=== PATIENT | female | born 1965 | race Two or more races ===

== ENCOUNTER 2024-09-17 10:51 | Outpatient (RCR) | payer MEDICAID, SELFPAY ==
[2024-08-26 16:40] LABS: Basophils % (Auto) 1 % (0-2.5); Eosinophils # (Auto) 0.1 Thou/mm3 (0.0-0.5); Eosinophils % (Auto) 2 % (0-10); Hematocrit 40.2 % (36.0-46.0); Hemoglobin 13.9 g/dL (12.0-16.0); Immature Granulocytes % (Auto) 0 % (0-0); Lymphocytes # (Auto) 0.8 Thou/mm3 (1.0-4.8); Lymphocytes % (Auto) 22 % (10-50); Mean Corpuscular HGB Conc 34.6 g/dl (31.0-37.0); Mean Corpuscular Hemoglobin 35.9 pg (25.0-35.0); Mean Corpuscular Volume 104 fL (80-100); Monocytes # (Auto) 0.5 Thou/mm3 (0.0-0.8); Monocytes % (Auto) 13 % (0-12); Neutrophils # (Auto) 2.3 Thou/mm3 (1.8-7.7); Neutrophils % (Auto) 62 % (37-80); Nucleated Red Blood Cell % 0 /100 WBC (0); RDW Standard Deviation 54.3 fL (36.4-46.3); Red Blood Count 3.87 Miln/mm3 (4.00-5.20); White Blood Count 3.7 Thou/mm3 (3.6-11.0)
[2024-08-26 16:46] LABS: Platelet Count 69 Thou/mm3 (140-440)
[2024-08-26 17:37] LABS: Slide Review Platelets confirmed
[2024-08-26 17:41] LABS: Alanine Aminotransferase 15 U/L (10-49); Albumin, Serum 3.9 gm/dL (3.5-5.0); Alkaline Phosphatase 221 U/L (46-116); Anion Gap 9 (7-16); Aspartate Amino Transferase 54 U/L (0-34); BUN/Creatinine Ratio 18 Ratio (12-20); Bilirubin,Total 1.6 mg/dL (0.3-1.2); Blood Urea Nitrogen 9 mg/dL (9-23); Calcium 9.1 mg/dL (8.3-10.6); Calcium (Corrected) 9.2 mg/dL (8.5-10.1); Carbon Dioxide 24.9 mMol/L (20.0-31.0); Chloride 104 mMol/L (98-107); Creatinine (Component) 0.5 mg/dL (0.6-1.3); Glucose 111 mg/dL (74-106); Osmolality,Calculated 275 (275-295); Potassium 3.9 mMol/L (3.4-5.1); Sodium 138 mMol/L (136-145); Total Protein 7.9 gm/dL (5.7-8.2); eGFR > 60 See Note
[2024-08-26 17:52] LABS: CA 15-3 14.1 U/mL (<32.4); Carcinoembryonic Antigen 3.7 ng/mL (0.0-5.0)
[2024-09-16 16:16] LABS: Basophils % (Auto) 1 % (0-2.5); Eosinophils # (Auto) 0.1 Thou/mm3 (0.0-0.5); Eosinophils % (Auto) 2 % (0-10); Hematocrit 35.6 % (36.0-46.0); Hemoglobin 12.6 g/dL (12.0-16.0); Immature Granulocytes % (Auto) 0 % (0-0); Immature Granulocytes Auto 0.01 Thou/mm3 (0.00-0.00); Lymphocytes # (Auto) 0.7 Thou/mm3 (1.0-4.8); Lymphocytes % (Auto) 24 % (10-50); Mean Corpuscular HGB Conc 35.4 g/dl (31.0-37.0); Mean Corpuscular Hemoglobin 36.6 pg (25.0-35.0); Mean Corpuscular Volume 104 fL (80-100); Monocytes # (Auto) 0.5 Thou/mm3 (0.0-0.8); Monocytes % (Auto) 16 % (0-12); Neutrophils # (Auto) 1.8 Thou/mm3 (1.8-7.7); Neutrophils % (Auto) 57 % (37-80); Nucleated Red Blood Cell % 0 /100 WBC (0); RDW Standard Deviation 55.9 fL (36.4-46.3); Red Blood Count 3.44 Miln/mm3 (4.00-5.20); White Blood Count 3.1 Thou/mm3 (3.6-11.0)
[2024-09-16 16:28] LABS: Platelet Count 72 Thou/mm3 (140-440)
[2024-09-16 16:40] LABS: Carbon Dioxide 25.2 mMol/L (20.0-31.0); Chloride 105 mMol/L (98-107); Potassium 3.6 mMol/L (3.4-5.1); Sodium 138 mMol/L (136-145)
[2024-09-16 16:41] LABS: Alanine Aminotransferase 15 U/L (10-49); Albumin, Serum 3.7 gm/dL (3.5-5.0); Alkaline Phosphatase 204 U/L (46-116); Anion Gap 8 (7-16); Aspartate Amino Transferase 44 U/L (0-34); BUN/Creatinine Ratio 15 Ratio (12-20); Bilirubin,Total 1.4 mg/dL (0.3-1.2); Blood Urea Nitrogen 9 mg/dL (9-23); Calcium 9.7 mg/dL (8.3-10.6); Calcium (Corrected) 9.9 mg/dL (8.5-10.1); Creatinine (Component) 0.6 mg/dL (0.6-1.3); Globulin 3.7 gm/dL (2.3-3.5); Glucose 100 mg/dL (74-106); Osmolality,Calculated 274 (275-295); Total Protein 7.4 gm/dL (5.7-8.2); eGFR > 60 See Note
[2024-09-16 16:58] LABS: Slide Review Platelets confirmed
[2024-09-16 17:14] LABS: CA 15-3 12.5 U/mL (<32.4); Carcinoembryonic Antigen 3.6 ng/mL (0.0-5.0)
[2024-09-17 12:00] LABS: Immature Reticulocyte Fraction 17.2 % (3.0-15.9); Reticulocyte % (Auto) 3.2 % (0.5-1.5); Reticulocyte Hgb Content 40.6 pg (28.0-35.0)
[2024-09-17 12:10] LABS: LDH (Lactate Dehydrogenase) 339 U/L (120-246)
[2024-09-17 12:17] LABS: Folate 16.61 ng/mL (>5.38); Vitamin B12 917 pg/mL (211-911)
[2024-09-25 07:09] LABS: Haptoglobin* <10 mg/dL (43-212)
== END 2024-09-21 23:59 | disposition home or self-care (01) ==
LOC: SCTC 10:51
PROVIDERS: PCP Family Medicine; Referring Provider Family Medicine; Visit Provider Internal Medicine Hematology & Oncology
DX: Z51.11 Encounter for antineoplastic chemotherapy (principal); Z51.0 Encounter for antineoplastic radiation therapy; C50.411 Malignant neoplasm of upper-outer quadrant of right female breast; Z17.0 Estrogen receptor positive status [ER+]; Z17.22 Progesterone receptor negative status; Z17.32 Human epidermal growth factor receptor 2 negative status; C78.02 Secondary malignant neoplasm of left lung; C79.51 Secondary malignant neoplasm of bone; G89.3 Neoplasm related pain (acute) (chronic)
CPT/HCPCS: 36591; 77280; 77295; 77300; 77334; 77336; 77412; 77417; 80053; 82378; 82607; 82746; 83010; 83615; 85025; 85046; 86300; 86880; 96367; 96413; A4216; J1642; J2405; J7060; J9358

== ENCOUNTER → 2024-09-28 | Outpatient (CLI) | payer MEDICAID, SELFPAY ==
--- NOTE | 2024-09-28 08:00 | XR_ITS ---
Examination: MRI cervical spine with intravenous contrast Technique: Multiple axial sagittal MR cervical spine images post intravenous contrast, 11 cc gadolinium Exam date and time: September 28, 2024 at 0841 hrs. Indications: Neck pain generalized numbness and paresthesias in the left arm and hand 3 weeks, breast carcinoma diagnosis 2011, nuclear medicine bone scan August 09, 2024 consistent with progression of osseous metastatic disease Findings: Adequate alignment cervical vertebral bodies Abnormal enhancement 20 mm in the left C7 vertebral body axial image 7 and the central T1 vertebral body sagittal image 9 No abnormal epidural tumor impinging upon the cervical cord No localized enlargement cervical cord Impression: Findings suspicious for osseous metastatic disease C7 and T1 No epidural tumor enhancement impinging upon the cervical cord
--- NOTE | 2024-09-28 08:30 | XR_ITS ---
Examination: MRI shoulder with intravenous contrast Technique: Multiple axial sagittal coronal MRI shoulder images post intravenous administration 11 cc gadolinium Exam date and time: September 28, 2024 0851 hrs. Indications: Diagnosis malignant neoplasm upper outer quadrant right female breast, secondary malignant neoplasm bone, secondary malignant neoplasm left lung, nuclear medicine bone scan August 09, 2024 marked increased isotope accumulation right shoulder, patient states left arm pain paresthesias 3 weeks Findings: Abnormal enhancement left humeral neck, 11 mm Rotator cuff appears intact No shoulder dislocation No pathologic fracture Impression: 11 mm focus of osseous metastatic disease left humeral neck
== END | disposition home or self-care (01) ==
LOC: SMRI 07:36
PROVIDERS: PCP Advanced Practice Midwife; Referring Provider Radiology Therapeutic Radiology; Visit Provider Radiology Therapeutic Radiology
DX: C79.51 Secondary malignant neoplasm of bone (principal); C50.411 Malignant neoplasm of upper-outer quadrant of right female breast; C78.02 Secondary malignant neoplasm of left lung
CPT/HCPCS: 72142; 73222; A9579

== ENCOUNTER → 2024-09-30 | Outpatient (CLI) | payer MEDICAID, SELFPAY ==
--- NOTE | 2024-09-30 10:11 | XR_ITS ---
Examination:Right hip AP, lateral, AP pelvis 3 views Technique: Hip AP lateral, AP pelvis, 3 views Exam date and time:September 30, 2024 1038 hours INDICATIONS: Diagnosis breast carcinoma, positive ventricular medicine bone scan right hip examination August 09, 2024 FINDINGS: Osteoblastic metastases involving right femoral neck intertrochanteric region of proximal shaft of the femur No pathologic fracture IMPRESSION: Osteoblastic metastatic disease right femur.
--- NOTE | 2024-09-30 10:11 | XR_ITS ---
Examination: Right femur 2 views TECHNIQUE: AP lateral right femur 2 views Exam date and time: September 30, 2024 1049 hours INDICATIONS: Diagnosis malignant neoplasm upper outer right female breast, abnormal uptake right hip under medicine bone scan August 09, 2024 FINDINGS: Osteoblastic metastases involving the right femoral neck intertrochanteric region of proximal and distal right femoral shaft No pathologic fracture IMPRESSION: Osteoblastic metastatic disease as above
== END | disposition home or self-care (01) ==
PROVIDERS: PCP Family Medicine; Referring Provider Internal Medicine Hematology & Oncology; Visit Provider Internal Medicine Hematology & Oncology
DX: C79.51 Secondary malignant neoplasm of bone (principal); C50.411 Malignant neoplasm of upper-outer quadrant of right female breast; C78.02 Secondary malignant neoplasm of left lung
CPT/HCPCS: 73502; 73552

== ENCOUNTER 2024-10-22 09:44 | Outpatient (RCR) | payer MEDICAID, SELFPAY ==
[2024-10-07 09:42] LABS: Basophils % (Auto) 1 % (0-2.5); Eosinophils # (Auto) 0.1 Thou/mm3 (0.0-0.5); Eosinophils % (Auto) 2 % (0-10); Hematocrit 36.7 % (36.0-46.0); Hemoglobin 12.6 g/dL (12.0-16.0); Immature Granulocytes % (Auto) 0 % (0-0); Lymphocytes # (Auto) 0.6 Thou/mm3 (1.0-4.8); Lymphocytes % (Auto) 21 % (10-50); Mean Corpuscular HGB Conc 34.3 g/dl (31.0-37.0); Mean Corpuscular Hemoglobin 37.1 pg (25.0-35.0); Mean Corpuscular Volume 108 fL (80-100); Monocytes # (Auto) 0.5 Thou/mm3 (0.0-0.8); Monocytes % (Auto) 18 % (0-12); Neutrophils # (Auto) 1.7 Thou/mm3 (1.8-7.7); Neutrophils % (Auto) 58 % (37-80); Nucleated Red Blood Cell % 0 /100 WBC (0); RDW Standard Deviation 65.4 fL (36.4-46.3)
[2024-10-07 09:59] LABS: White Blood Count 2.9 Thou/mm3 (3.6-11.0)
[2024-10-07 10:00] LABS: Platelet Count 79 Thou/mm3 (140-440)
[2024-10-07 10:06] LABS: Alanine Aminotransferase 15 U/L (10-49); Albumin, Serum 3.7 gm/dL (3.5-5.0); Alkaline Phosphatase 218 U/L (46-116); Anion Gap 10 (7-16); Aspartate Amino Transferase 52 U/L (0-34); BUN/Creatinine Ratio 20 Ratio (12-20); Bilirubin,Total 1.4 mg/dL (0.3-1.2); Blood Urea Nitrogen 10 mg/dL (9-23); Calcium (Corrected) 10.2 mg/dL (8.5-10.1); Carbon Dioxide 26.3 mMol/L (20.0-31.0); Chloride 105 mMol/L (98-107); Creatinine (Component) 0.5 mg/dL (0.6-1.3); Globulin 3.8 gm/dL (2.3-3.5); Glucose 117 mg/dL (74-106); Osmolality,Calculated 281 (275-295); Potassium 3.9 mMol/L (3.4-5.1); Sodium 141 mMol/L (136-145); Total Protein 7.5 gm/dL (5.7-8.2); eGFR > 60 See Note
[2024-10-07 11:37] LABS: CA 15-3 17.3 U/mL (<32.4); Carcinoembryonic Antigen 4.2 ng/mL (0.0-5.0)
[2024-10-07 11:41] LABS: Slide Review Platelets confirmed
== END 2024-10-22 23:59 | disposition home or self-care (01) ==
LOC: SCTC 09:44
PROVIDERS: Internal Medicine Hematology & Oncology; PCP Family Medicine; Referring Provider Family Medicine; Visit Provider Radiology Therapeutic Radiology
DX: Z51.11 Encounter for antineoplastic chemotherapy (principal); Z51.0 Encounter for antineoplastic radiation therapy; C50.411 Malignant neoplasm of upper-outer quadrant of right female breast; C79.51 Secondary malignant neoplasm of bone; C78.02 Secondary malignant neoplasm of left lung; Z17.0 Estrogen receptor positive status [ER+]; Z17.22 Progesterone receptor negative status; Z17.32 Human epidermal growth factor receptor 2 negative status; Z86.011 Personal history of benign neoplasm of the brain
CPT/HCPCS: 36591; 77014; 77280; 77290; 77295; 77300; 77334; 77336; 77412; 77417; 77470; 80053; 82378; 85025; 86300; 96360; 96361; 96367; 96372; 96413; 99212; 99213; A4216; J0897; J1642; J2405; J7030; J7060; J9358; G0463

== ENCOUNTER → 2024-10-25 | Outpatient (CLI) | payer MEDICAID, SELFPAY ==
--- NOTE | 2024-10-25 09:00 | XR_ITS ---
Examination: MRI brain with intravenous contrast TECHNIQUE: Multiple axial sagittal coronal brain MRI images post intravenous administration 11 cc gadolinium INDICATIONS: Diagnosis malignant neoplasm upper outer quadrant right female breast, secondary malignant neoplasm bone secondary malignant neoplasm left lung, staging Examination time: October 25, 2024 0919 hours Comparison 06/26/2015 FINDINGS: Ventricles are normal in size and configuration No mass effect upon the ventricular system Focal encephalomalacia left frontal lobe axial image 21 No enlargement pituitary Left frontal craniotomy Axial image 21 demonstrates 3 mm focus enhancement in the right frontal parietal lobe IMPRESSION: Recommend this patient return for triple dose gadolinium study to confirm 3 mm abnormal focus of enhancement in the right frontal parietal lobe
== END | disposition home or self-care (01) ==
LOC: SMRI 08:51
PROVIDERS: PCP Advanced Practice Midwife; Referring Provider Internal Medicine Hematology & Oncology; Visit Provider Internal Medicine Hematology & Oncology
DX: C50.411 Malignant neoplasm of upper-outer quadrant of right female breast (principal); C79.51 Secondary malignant neoplasm of bone; C78.02 Secondary malignant neoplasm of left lung
CPT/HCPCS: 70552; A9579

== ENCOUNTER 2024-11-18 14:23 | Outpatient (RCR) | payer MEDICAID, SELFPAY ==
[2024-10-28 12:11] LABS: Basophils % (Auto) 1 % (0-2.5); Eosinophils # (Auto) 0.1 Thou/mm3 (0.0-0.5); Eosinophils % (Auto) 3 % (0-10); Hematocrit 35.1 % (36.0-46.0); Hemoglobin 12.3 g/dL (12.0-16.0); Immature Granulocytes % (Auto) 0 % (0-0); Immature Granulocytes Auto 0.01 Thou/mm3 (0.00-0.00); Lymphocytes # (Auto) 0.6 Thou/mm3 (1.0-4.8); Lymphocytes % (Auto) 19 % (10-50); Mean Corpuscular Hemoglobin 37.7 pg (25.0-35.0); Mean Corpuscular Volume 108 fL (80-100); Monocytes # (Auto) 0.5 Thou/mm3 (0.0-0.8); Monocytes % (Auto) 17 % (0-12); Neutrophils # (Auto) 1.8 Thou/mm3 (1.8-7.7); Neutrophils % (Auto) 60 % (37-80); Nucleated Red Blood Cell % 0 /100 WBC (0); RDW Standard Deviation 67.1 fL (36.4-46.3); Red Blood Count 3.26 Miln/mm3 (4.00-5.20)
[2024-10-28 12:30] LABS: Platelet Count 72 Thou/mm3 (140-440)
[2024-10-28 12:32] LABS: White Blood Count 2.9 Thou/mm3 (3.6-11.0)
[2024-10-28 12:44] LABS: Alanine Aminotransferase 14 U/L (10-49); Albumin, Serum 3.7 gm/dL (3.5-5.0); Alkaline Phosphatase 234 U/L (46-116); Anion Gap 10 (7-16); Aspartate Amino Transferase 49 U/L (0-34); BUN/Creatinine Ratio 20 Ratio (12-20); Bilirubin,Total 1.5 mg/dL (0.3-1.2); Blood Urea Nitrogen 10 mg/dL (9-23); Calcium 8.7 mg/dL (8.3-10.6); Calcium (Corrected) 8.9 mg/dL (8.5-10.1); Carbon Dioxide 25.5 mMol/L (20.0-31.0); Chloride 105 mMol/L (98-107); Creatinine (Component) 0.5 mg/dL (0.6-1.3); Globulin 3.6 gm/dL (2.3-3.5); Glucose 136 mg/dL (74-106); Osmolality,Calculated 280 (275-295); Potassium 3.7 mMol/L (3.4-5.1); Sodium 140 mMol/L (136-145); Total Protein 7.3 gm/dL (5.7-8.2); eGFR > 60 See Note
[2024-10-28 15:00] LABS: Slide Review Platelets confirmed
[2024-10-29 18:37] LABS: CA 15-3 20.2 U/mL (<32.4)
--- NOTE | 2024-10-31 01:06 | CTCFLWUP_ITS ---
Patient: VINCENT SALAZAR : 1965 Page 11 of 12 FOLLOW UP NOTE DATE OF SERVICE: 10/30/2024 NAME: VINCENT SALAZAR ACCOUNT: [id number] : 1965 AGE: 59 INTERVAL HISTORY: Patient is a known metastatic breast cancer ER/OR positive HER2 low who is on Enhertu. Patient is he re to discuss her imaging and further treatment plan. Patient have pain in her hips and in the leg a nd she is able to walk. She is not losing weight and is feeling okay. ONCOLOGY HISTORY: DIAGNOSIS: Malignant neoplasm of upper-outer quadrant of right female breast [ICD10] C50.411; Secondary malignan t neoplasm of bone [ICD10] C79.51 DATE OF DIAGNOSIS: 06/06/2012 as early stage breast cancer stage IV on 120 11/11/2018 STAGE/TNM: Metastatic TREATMENT HISTORY: Care?Plan Start?Date Cycle Day Intent FASLODEX 02/06/2019 1 30 Palliative Xgeva?120?mg?q?3?months 11/25/2021 1 90 Palliative Fam?-?trastuzumab?deruxtecan 08/24/2022 1 21 Palliative FERAheme?4?doses 04/10/2024 1 28 Palliative HISTORY OF PRESENT ILLNESS: Vincent Salazar is a 59-year-old Divehi-speaking female who was initially diagnosed with right breast cancer in 2011. 06/06/2012: Right breast mass biopsy showed ER positive, OR positive, HER-2/rivera negative grade 2 invas tariq ductal carcinoma.According to Ms. Salazar she was also told that she has bone metastases at the [facility]. 08/06/2012?11/22/2012: Patient received 6 cycles of Taxotere and Cytoxan 08/06/2012?10/22/2013: Patient was treated with monthly Zometa. 01/07/2014: Bone biopsy from lumbar spine was negative for metastatic disease. After the chemotherapy patient had a right breast mastectomy 818 2013?07/2014 patient received 6300 cGy radiation to the right chest. She has been on tamoxifen ever since. Patient became menopausal about 6 years ago. 10/26/2018: PET/CT scan was done which showed absent anterior left mandible with hypennetabolic area in the soft tissue. l2 mm. clinical correlation advised. Hypennelabolie metastatic right cervical lymp h node posterior to the mandible. 20 mm hypcmietabolic pulmonary nodule anterior left lung 11/12/2018: Patient had a CT scan of the chest with and without contrast which showed left-sided pleur al effusion associated pleural parenchymal disease visualized in the left lower lobe. 3 hypodensitie s within the liver ranging in size from 10-14 mm were also noted. 01/08/2019: CT-guided biopsy of the left lung mass?. 01/22/2019: Palbociclib 125 mg p.o. daily for 21 days followed by 7 days rest is prescribed. 02/06/2019: Patient received first dose of Faslodex. 06/26/2019: CT scan of the neck?more pronounced bone destruction involving the maxilla Enlarging lymph node posterior to the right mandible. 06/28/2019: PET CT scan?Projection angles are different, but there appears to be more bone destruction involving the anterior maxilla on the current study compared to PET/CT October 26, 2018. Otherwise, no interval metastatic disease compared to PET/CT October 26, 2018 01/24/2020: PET CT scan? 01/30/2020: CT scan of the chest abdomen and pelvis with IV contrast? 02/19/2020: CT-guided biopsy of the liver lesion? 06/26/2020: CT scan of the abdomen with and without contrast? 04/05/2021: Ibrance change 100 mg p.o. a every other day for 21 days followed by 7 days rest due to pe rsistent cytopenias that were delaying Faslodex injections. 05/14/2021: CT scan of the chest abdomen and pelvis with IV contrast? 10/18/2021: CT scan of the chest abdomen and pelvis with IV contrast? 10/18/2021: CT scan of the chest abdomen and pelvis with IV contrast? 11/17/2021: X-rays of the right hip? 11/17/2021: Bone scan? 12/05/2021: Patient started taking anastrozole. 12/06/2021?12/20/2021: Patient received 3000 cGy radiation therapy to the right hip. 12/22/2021: Patient received first dose of Xgeva. 06/15/2022: Bone scan? 06/27/2022: [facility] CDx next generation sequencing study 06/28/2022: CT scan of the abdomen and pelvis with IV contrast? 07/04/2022: CT scan of the chest with IV contrast 08/10/2022: Echocardiogram?LVEF 60-64%. 08/24/2022: Ms. Salazar is started on Fam-trastuzumab deruxtecan-nxki ( Enhertu) 01/31/2023: CT scan of the chest abdomen and pelvis with IV contrast? 07/06/2023: CT scan of the chest abdomen and pelvis with IV contrast? 12/13/2023: CT scan of the chest with IV contrast? 05/15/2024: CT scan of the chest abdomen and pelvis with IV contrast OTHER MEDICAL HISTORY/CONDITIONS: FAMILY HISTORY: ?Clone Family Hx? 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 Citracal plus D - 315 mg-5 mcg (200 unit) 1 tab Twice a Day 2. Compazine - 10 mg 1 tab three times a day 3. Cozaar - 25 mg Daily 4. Emend - 125 mg (1)- 80 mg (2) 1 Capsule as directed 5. gabapentin - 300 mg 1 Capsule twice daily 6. ibuprofen - 400 mg Three times a day 7. Keppra - 250 mg 1 tab Daily 8. Keppra - 500 mg 2 tab Twice a Day 9. Nexium - 40 mg Each Day 10. ondansetron - 8 mg 1 tab one tablet po three times a day 11. oxycodone - 5 mg 1 tab three times a day 12. Tylenol Extra Strength - 500 mg 2 tab As needed?Palabra Meds? Medications Last Reconciled by Brenda Giles MA on 10/30/2024 ALLERGIES: No Known Drug Allergies REVIEW OF SYSTEMS: A complete 14-point review of systems was performed and is negative except as noted in interval histo ry. PHYSICAL EXAMINATION:?CloneBlock PE? VITAL SIGNS: Temperature?97.9, B/P?131/86, Oxygen?Saturation?95% Weight?127.8?lbs (Change?since? 5:?-0.4?lbs) PAIN: 8 - Very severe pain ECOG Performance Status: 2 - Symptomatic; ambulatory; capable of self-care; >50% of waking hrs. not i n bed Conjunctiva pink. Neck is supple. No adenopathy in the neck, axilla or inguinal region. Chest clear to auscultation. No wheezes or rails audible. CVS rhythm regular. Abdomen is soft. No hepatosplenomegaly palpable. No areas of tenderness present in the abdomen or i n the right upper quadrant. Extremities no clubbing or cyanosis. LABORATORY DATA: I have personally reviewed and interpreted each of the patient?s relevant lab tests, abnormal finding s are below: Date 10/28/24 ??GLUCOSE,RANDOM?(mg/dL) 136?H ??BLOOD?UREA?NITROGEN?(mg/dL) 10 ??CREATININE?(mg/dL) 0.50?L ??SODIUM?(mmol/L) 140 ??POTASSIUM?(mmol/L) 3.7 ??CHLORIDE?(mmol/L) 105 ??CrCl?(CandG)?(ml/min) 111.04 ??AST/SGOT?(Unit/L) 49?H ??ALT/SGPT?(Unit/L) 14 ??ALKALINE?PHOSPHATASE?(Unit/L) 234?H ??BILIRUBIN,?TOTAL?(mg/dL) 1.5?H ??PROTEIN?TOTAL?(gm/dl) 7.3 ??ALBUMIN,?SERUM?(gm/dl) 3.7 ??GLOBULIN?(gm/dl) 3.6?H ??ALBUMIN/GLOBULIN?RATIO 1.0?L ??CALCIUM,?SERUM?(mg/dL) 8.7 ??CALCIUM?SERUM?(CORRECTED)?(mg/dL) 8.9 ASSESSMENT/PLAN: Ms. Salazar is clinically doing well but for mild occasional tingling in the left fingers. CT scans done on 05/15/2024 showed stable disease as documented above. Fam-trastuzumab deruxtecan-nxki ( Enhertu) was started on 08/24/2022. Progressed on anastrozole. Previous left lung mass biopsy done on 01/08/2019 showed invasive carcinoma breast primary, ER positiv e, OR negative, HER2/rivera 2+ by IHC. No actionable mutations on [facility] Cdx study. Status post radiation therapy to the right hip on 12/15/2021.. Bone scan is positive in the right hip, L5 and proximal cervical spine as described above. CT scan showed a sclerotic focus in the right femoral neck. I have discussed this finding with Dr. Mayda Garza who felt patient had these findings on the previous scans. Progressed on Faslodex as well as Ibrance. Patient was diagnosed with Covid infection in October 22, 2020 as described above. Metastatic ER positive, OR negative, HER-2/rivera 2+ breast cancer with newly identified pulmonary metas tases and history of bone metastases. History of right breast invasive ductal carcinoma initially diagnosed on 06/06/2012. History of meningioma as described above. Status post resection in 201110/25/2024 MRI is concerning for a 3 mm lesion in the brain. Three-phase MRI with gadolinium contrast ordered as per radiologist 09/30/2024 x-ray reviewed of hips and shows osteoblastic metastasis involving right femoral neck inter trochanteric region of proximal left femur MRI shoulder with intravenous contrast on 09/28/2024 shows 11 mm focus of osseous mets in the left hum eral neck 09/28/2024 MRI C-spine shows metastatic disease C7 and T1 continue Xgeva. Continue Citracal 1 tablet p.o. twice daily. Monitor with a CA 15-3. Worsening nausea and vomiting , will add antinausea drugs ivf as needed Will add aprepitant and IV fluids. Already received Enhertu this time. I want to get a biopsy of her femur to see if there is a change in the receptor on her recurrent cancer which is mostly in the bones. [place] [id number] CDX on newer biopsy ORDERS: IR guided biopsy MARIANNA and follow-up with radiation oncology RETURN TO CLINIC: 2 weeks To review MRI brain and biopsy results BILLING AND COMPLIANCE: I reviewed external records from providers outside my specialty as summarized above. I spent a total of 50 minutes on this patient?s care on the day of their visit excluding time spent related to any bi lled procedures. This time includes time spent with the patient as well as time spent documenting in the medical record, reviewing patients records and tests, obtaining history, placing orders, communi cating with other healthcare professionals, counseling the patient, family or caregiver, and/or care coordination for the diagnoses above. Electronically Signed by: Yamil Olmstead MD T: 1:04 AM CC: Klever?DEANN Daniel PCP: Klever Daniel Referring: Klever Daniel This document was completed utilizing speech recognition software. Grammatical errors, random word in sertions, pronoun errors, and incomplete sentences are an occasional consequence of this system due t o software limitations, ambient noise, and hardware issues. Any formal questions or concerns about th e content, text or information contained within the body of this dictation should be directly address ed to the provider for clarification.
[2024-11-18 15:17] LABS: Collection Type, Urine Voided
[2024-11-18 15:23] LABS: Basophils % (Auto) 1 % (0-2.5); Eosinophils # (Auto) 0.1 Thou/mm3 (0.0-0.5); Eosinophils % (Auto) 3 % (0-10); Hematocrit 34.6 % (36.0-46.0); Hemoglobin 11.8 g/dL (12.0-16.0); Immature Granulocytes % (Auto) 0 % (0-0); Immature Granulocytes Auto 0.01 Thou/mm3 (0.00-0.00); Lymphocytes # (Auto) 0.7 Thou/mm3 (1.0-4.8); Lymphocytes % (Auto) 21 % (10-50); Mean Corpuscular HGB Conc 34.1 g/dl (31.0-37.0); Mean Corpuscular Hemoglobin 37.8 pg (25.0-35.0); Mean Corpuscular Volume 111 fL (80-100); Monocytes # (Auto) 0.7 Thou/mm3 (0.0-0.8); Monocytes % (Auto) 20 % (0-12); Neutrophils # (Auto) 1.9 Thou/mm3 (1.8-7.7); Neutrophils % (Auto) 55 % (37-80); Nucleated Red Blood Cell % 0 /100 WBC (0); Platelet Count 84 Thou/mm3 (140-440); RDW Standard Deviation 70.7 fL (36.4-46.3); Red Blood Count 3.12 Miln/mm3 (4.00-5.20); White Blood Count 3.4 Thou/mm3 (3.6-11.0)
[2024-11-18 15:24] LABS: Bilirubin,Urine Negative (Negative); Blood,Urine Negative (Negative); Clarity,Urine Clear (Clear/Hazy); Color,Urine Yellow (Lt Yel-Yel); Glucose, Urine Negative (Negative); Ketones,Urine Negative (Negative); Leukocyte Esterase,Urine Negative (Negative); Nitrite,Urine Negative (Negative); PH,Urine 5.5 (5.0-7.0); Protein,Urine Negative (Neg - Trace); RBC,Urine 1 /hpf (0-3); Squamous Epithelial Cell,Urine 1 /hpf (0-5); WBC,Urine 1 /hpf (0-5)
[2024-11-18 15:37] LABS: Alanine Aminotransferase 12 U/L (10-49); Albumin, Serum 3.5 gm/dL (3.5-5.0); Albumin/Globulin Ratio 0.9 (1.2-2.2); Alkaline Phosphatase 243 U/L (46-116); Anion Gap 9 (7-16); Aspartate Amino Transferase 55 U/L (0-34); BUN/Creatinine Ratio 13 Ratio (12-20); Blood Urea Nitrogen 8 mg/dL (9-23); Calcium 9.5 mg/dL (8.3-10.6); Calcium (Corrected) 9.9 mg/dL (8.5-10.1); Carbon Dioxide 25.5 mMol/L (20.0-31.0); Chloride 105 mMol/L (98-107); Creatinine (Component) 0.6 mg/dL (0.6-1.3); Globulin 3.7 gm/dL (2.3-3.5); Glucose 127 mg/dL (74-106); Osmolality,Calculated 277 (275-295); Potassium 3.9 mMol/L (3.4-5.1); Sodium 139 mMol/L (136-145); Total Protein 7.2 gm/dL (5.7-8.2); eGFR > 60 See Note
[2024-11-18 15:55] LABS: CA 15-3 17.1 U/mL (<32.4); Carcinoembryonic Antigen 4.5 ng/mL (0.0-5.0)
== END 2024-11-22 23:59 | disposition home or self-care (01) ==
LOC: SCTC 14:23
PROVIDERS: Internal Medicine Hematology & Oncology; PCP Family Medicine; Referring Provider Family Medicine; Visit Provider Radiology Therapeutic Radiology
DX: Z51.0 Encounter for antineoplastic radiation therapy (principal); Z51.11 Encounter for antineoplastic chemotherapy; C50.411 Malignant neoplasm of upper-outer quadrant of right female breast; C79.51 Secondary malignant neoplasm of bone; C78.02 Secondary malignant neoplasm of left lung; Z17.0 Estrogen receptor positive status [ER+]; Z17.22 Progesterone receptor negative status; Z17.32 Human epidermal growth factor receptor 2 negative status; G89.3 Neoplasm related pain (acute) (chronic); R53.1 Weakness
CPT/HCPCS: 36591; 77412; 80053; 81001; 82378; 85025; 86300; 87086; 96367; 96413; 99212; A4216; J1642; J2405; J7060; J9358; Q3014; G0463

== ENCOUNTER → 2024-11-19 | Outpatient (CLI) | payer MEDICAID, SELFPAY ==
--- NOTE | 2024-11-19 10:07 | XR_ITS ---
EXAMINATION: Cervical spine, 5 views Technique: Cervical spine AP, AP odontoid, lateral, bilateral obliques, 5 views Exam date and time: November 19, 2024 1036 hours INDICATIONS: Diagnosis malignant neoplasm upper outer quadrant right female breast, malignant neoplasm secondary to the bone, malignant secondary neoplasm left lung, right neck pain 3 months Adequate alignment cervical vertebral bodies No cervical fracture Mild bilateral neural foraminal stenosis C3-C4 No findings diagnostic for osseous metastatic disease IMPRESSION: No cervical fracture No findings diagnostic for osseous metastatic disease
--- NOTE | 2024-11-19 10:07 | XR_ITS ---
Examination: Forearm, left, 2 views. Technique: Forearm, AP, lateral 2 views Date and time of exam: November 11, 2024 1036 hours INDICATIONS: Diagnosis malignant neoplasm upper outer quadrant right female breast diagnosis secondary malignant neoplasm bone, secondary malignant neoplasm left lung, left forearm pain 3 months FINDINGS: Moderate osteopenia No fracture No osteolytic or osteoblastic lesions depicted IMPRESSION: No osteolytic or osteoblastic lesions involving the left forearm noted
--- NOTE | 2024-11-19 10:07 | XR_ITS ---
Examination: Humerus 2 views right Technique: Humerus, AP lateral 2 views Date and time of exam: November 11, 2024 1036 hours INDICATIONS: Diagnosis malignant neoplasm upper outer quadrant right female breast, diagnosis secondary malignant neoplasm bone, diagnosis secondary malignant neoplasm left lung, right arm pain 3 months FINDINGS: Moderate osteopenia Significant narrowing glenohumeral joint Calcific tendinitis No fracture No cortical bone destruction IMPRESSION: Significant narrowing glenohumeral joint Calcific tendinitis No findings diagnostic for osseous metastatic disease involving the humerus
--- NOTE | 2024-11-19 10:07 | XR_ITS ---
Examination: Shoulder,right, 3 views Technique: Shoulder AP internal rotation, AP external rotation, Y view shoulder, 3 views Exam date and time :November 19, 2024 1036 hours INDICATIONS: Right shoulder pain 3 months, diagnosis malignant neoplasm upper outer quadrant right female breast, secondary malignant neoplasm bone, secondary malignant neoplasm left lung FINDINGS: Significant narrowing glenohumeral joint Calcific tendinitis No shoulder fracture or dislocation IMPRESSION: No findings diagnostic for osseous metastatic disease involving the shoulder
== END | disposition home or self-care (01) ==
PROVIDERS: PCP Family Medicine; Referring Provider Radiology Therapeutic Radiology; Visit Provider Radiology Therapeutic Radiology
DX: M65.221 Calcific tendinitis, right upper arm (principal); M25.811 Other specified joint disorders, right shoulder; M25.511 Pain in right shoulder; M79.632 Pain in left forearm; C50.411 Malignant neoplasm of upper-outer quadrant of right female breast; C78.02 Secondary malignant neoplasm of left lung; C79.51 Secondary malignant neoplasm of bone
CPT/HCPCS: 72050; 73030; 73060; 73090

== ENCOUNTER → 2024-11-21 | Outpatient (CLI) | payer MEDICAID, SELFPAY ==
--- NOTE | 2024-11-21 13:30 | XR_ITS ---
Examination: CT cervical spine with contrast 2-D sagittal reconstructions 2-D coronal reconstructions 3-D reconstructions. Exam date and time:November 21, 2024 1528 hours INDICATIONS: Secondary malignant neoplasm left lung, history right breast carcinoma post mastectomy, left-sided neck pain beginning 3 months ago CTDI:vol (mGy) 9.55 DLP: (mGycm) 198 Technique: Multiple 2 mm axial sections of the cervical spine have been obtained. Post intravenous administration 50 cc Isovue-[id number] The coronal and sagittal reconstructions have been obtained. 3-D reconstructions have been obtained. Low dose protocols were performed. One or more of the following dose reduction techniques were used; automated exposure control, adjustment of the mA and/or KV according to patient size, use of iterative reconstruction technique. Findings: Axial sections demonstrate intact base of the skull. C1 exhibit satisfactory relationship to the odontoid. No acute cervical vertebral body fracture seen. Alignment posterior spinous processes satisfactory. 5 mm calcified left thyroid nodule No pathologic cervical lymphadenopathy The enhancing nodule in the right parotid gland is again depicted, measuring 13 mm on this study compared to 11 mm on the 06/26/2019 exam Moderate osteopenia Impression: No acute cervical fracture. Enlarging nodule in the right parotid gland, 13 mm Poorly defined disease at the left apex, recommend PA lateral chest follow-up
== END | disposition home or self-care (01) ==
PROVIDERS: PCP Family Medicine; Referring Provider Radiology Therapeutic Radiology; Visit Provider Radiology Therapeutic Radiology
DX: I89.8 Other specified noninfective disorders of lymphatic vessels and lymph nodes (principal); C50.411 Malignant neoplasm of upper-outer quadrant of right female breast; C79.51 Secondary malignant neoplasm of bone; C78.02 Secondary malignant neoplasm of left lung
CPT/HCPCS: 72126; A4649; Q9967

== ENCOUNTER → 2024-11-30 | Outpatient (CLI) | payer MEDICAID, SELFPAY ==
--- NOTE | 2024-11-30 10:30 | XR_ITS ---
Examination: MRI lumbar spine with intravenous contrast Technique: Multiple axial sagittal coronal brain MRI images post intravenous administration 33 cc gadolinium Exam date and time: November 2024 10:47 AM Comparison October 25, 2024 Indications: Diagnosis malignant neoplasm upper outer quadrant right female breast, secondary malignant neoplasm lobe, secondary malignant neoplasm left lung, brain MRI October 25, 2024 abnormal focus of enhancement 3 mm in the right parietal lobe Findings: Ventricles are not enlarged 5 mm focus of enhancement in the right frontal lobe is confirmed on this study Also 9 mm enhancing lesion in the right parietal bone near the vertex and similar enhancement in the right frontal bone 11 mm No mass effect upon the ventricular system Impression: 5 mm focus of enhancement in the right frontal lobe is confirmed on this study, consider early cerebral metastasis Enhancing bone lesions consistent with osseous metastatic disease
== END | disposition home or self-care (01) ==
LOC: SMRI 10:02
PROVIDERS: Referring Provider Internal Medicine Hematology & Oncology; Visit Provider Internal Medicine Hematology & Oncology
DX: G93.9 Disorder of brain, unspecified (principal); M89.9 Disorder of bone, unspecified; C50.411 Malignant neoplasm of upper-outer quadrant of right female breast; C79.51 Secondary malignant neoplasm of bone; C78.02 Secondary malignant neoplasm of left lung
CPT/HCPCS: 70552; A9579

== ENCOUNTER 2024-12-20 08:21 | Outpatient (RCR) | payer MEDICAID, SELFPAY ==
--- NOTE | 2024-11-25 14:09 | CTCFLWUP_ITS ---
[facility] [address] [place], [place] [address] FOLLOW-UP NOTE Date: 11/25/2024 MR#: [id number] Name: VINCENT ROLDAN : 1965 Dx: C50.411 Malignant neoplasm of upper-outer quadrant of right female breast Identification. Patient with stage IV ER positive GA negative HER2/rivera 2+ right breast CA with lung mets bone mets. Prior radiation therapy to the right and left shoulder and right pelvic area with partial relief of pain. Patient has had neuropathic symptoms involving the left upper extremity for several weeks now. 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 Patient most recent CBC 11/18/2024 3.4 WBC hemoglobin 11.8 platelets 84,000. Assessment.1. Stage IV ER positive GA negative HER2/rivera 2+ metastatic breast CA. 2. Currently receiving Enhertu Xgeva under Dr. Olmstead's direction. 3. 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 Discussed the case with Dr. Olmstead. Electronically signed by: Florentino Bradford M.D. 11/25/2024 2:07 PM
--- NOTE | 2024-11-25 14:10 | CTCTXPLN_ITS ---
[facility] [address] [place], [place] [address] Physician Clinical Treatment Planning Note Date of Service: 11/25/2024 Name: VINCENT Cates.: 1965 The patient has agreed to proceed with Radiation therapy. Tests and supporting medical records were interpreted to assist in defining the tumor location and extent of disease. Further imaging will be necessary to contour and delineate the volume to which the XRT will be provided. A. Treatment Intent: Palliative B. Modality: 6 MV C. Requested Technique: 3D D. Treatment Site: Left upper lobe E. Critical structures to be contoured on plan: F. In order to accomplish this plan, I am ordering/Prescribing the followin. Simulations (s) will be performed to accomplish a reproducible treatment position, to determine optimal treatment portals/beam arrangements, to design beam modifying devices and verify treatment portals on patient prior to the commencement of Radiation Therapy. Chest 2. Devices; for immobilization and beam shapin. CT Guidance for placement of XRT mondragon Scan area: 4. Portal images Frequency: 5. Invivo transit dose measurement once per week on all VMAT patients. 6. Special Physics Consult Requested for: 7. Other requests: Special seizures some getting chemo and radiation G. Dose Objectives: Palliative Electronically signed by: Florentino Bradford M.D. 11/25/2024 2:08 PM
--- NOTE | 2024-11-25 14:13 | CTCTXPLNST_ITS ---
Radiation Oncology Treatment Planning Sheet Name: VINCENT ROLDAN MR#: [id number] : 1965 Dx: C50.411 Malignant neoplasm of upper-outer quadrant of right female breast Date of Service: 11/25/2024 Account #: ?? Pt Treatment Intent: curative palliative other: Stage: Procedure CPT # Ordered Spec. Procedure 30415 1 Sam Complex (set-up) 17903 C3- T 5 L upper lung 1 Sam Simple 54827 1 IMRT Plan 83179 MLC Devices VMAT 59515 Sam 3 D 73710 1 TRTMT dev Complex 64430 Vaklok/2F 3 TRTMT dev simple 49397 Basic Esequiel 82058 2 Special Dosimetry 09067 Spec Physics 50956 Port Films 52046 2 SRS Cranial/1FX 92308 SBR 5 FX or Less /ex: 5 = 5 fx 86235 IMRT Simple 73391 IMRT Complex 58247 IGRT 16595 Rad del com 6- 72498 Rad del com 11- 06200 3000 10 Cont Med Physics 08813 2 Treatment Planning 55268 1 Rad del com 20 mev 25836 Rad del inter 6 58405 Rad del inter 09-10 19742 Rad del simple 6-10 72710 Rad del simple 11 42807 Special Port Plan 45292 TRTMT dev inter 58198 Isodose Complex 95927 Isodose simple 78826 Resp Motion Mgmt Simulation 76220 Placement of Fiducial Markers 39853 Electronically Signed By: Florentino Bradford MD, SHALONDAR 11/25/2024 2:10 PM
[2024-11-25 16:50] LABS: Basophils % (Auto) 1 % (0-2.5); Eosinophils # (Auto) 0.1 Thou/mm3 (0.0-0.5); Eosinophils % (Auto) 2 % (0-10); Hematocrit 35.6 % (36.0-46.0); Hemoglobin 12.3 g/dL (12.0-16.0); Immature Granulocytes % (Auto) 1 % (0-0); Immature Granulocytes Auto 0.02 Thou/mm3 (0.00-0.00); Lymphocytes # (Auto) 0.6 Thou/mm3 (1.0-4.8); Lymphocytes % (Auto) 13 % (10-50); Mean Corpuscular HGB Conc 34.6 g/dl (31.0-37.0); Mean Corpuscular Hemoglobin 37.6 pg (25.0-35.0); Mean Corpuscular Volume 109 fL (80-100); Monocytes # (Auto) 0.8 Thou/mm3 (0.0-0.8); Monocytes % (Auto) 17 % (0-12); Neutrophils # (Auto) 2.9 Thou/mm3 (1.8-7.7); Neutrophils % (Auto) 66 % (37-80); Nucleated Red Blood Cell % 0 /100 WBC (0); Red Blood Count 3.27 Miln/mm3 (4.00-5.20); White Blood Count 4.3 Thou/mm3 (3.6-11.0)
[2024-11-25 17:01] LABS: Platelet Count 65 Thou/mm3 (140-440)
[2024-11-25 17:12] LABS: Alanine Aminotransferase 12 U/L (10-49); Albumin, Serum 3.5 gm/dL (3.5-5.0); Albumin/Globulin Ratio 0.9 (1.2-2.2); Alkaline Phosphatase 248 U/L (46-116); Anion Gap 11 (7-16); Aspartate Amino Transferase 51 U/L (0-34); BUN/Creatinine Ratio 16 Ratio (12-20); Bilirubin,Total 1.8 mg/dL (0.3-1.2); Blood Urea Nitrogen 8 mg/dL (9-23); Calcium 8.9 mg/dL (8.3-10.6); Calcium (Corrected) 9.3 mg/dL (8.5-10.1); Carbon Dioxide 26.5 mMol/L (20.0-31.0); Chloride 102 mMol/L (98-107); Creatinine (Component) 0.5 mg/dL (0.6-1.3); Globulin 3.9 gm/dL (2.3-3.5); Glucose 140 mg/dL (74-106); Osmolality,Calculated 277 (275-295); Potassium 3.5 mMol/L (3.4-5.1); Sodium 139 mMol/L (136-145); Total Protein 7.4 gm/dL (5.7-8.2); eGFR > 60 See Note
[2024-11-25 17:55] LABS: CA 15-3 15.1 U/mL (<32.4); Carcinoembryonic Antigen 3.9 ng/mL (0.0-5.0)
[2024-11-25 18:04] LABS: Slide Review Platelets confirmed
--- NOTE | 2024-11-26 13:58 | CTCFLWUP_ITS ---
Patient: VINCENT SALAZAR : 1965 Page 2 of 2 FOLLOW UP NOTE DATE OF SERVICE: 11/26/2024 NAME: VINCENT SALAZAR ACCOUNT: [id number] : 1965 AGE: 59 INTERVAL HISTORY: Patient is a known metastatic breast cancer ER/MA positive HER2 low who is on Enhertu. Patient is complaining of pain in her left arm. Patient is also having uncontrolled pain and requesting to increase her pain medication. ONCOLOGY HISTORY: DIAGNOSIS: Malignant neoplasm of upper-outer quadrant of right female breast [ICD10] C50.411; Secondary malignant neoplasm of bone [ICD10] C79.51 DATE OF DIAGNOSIS: 06/06/2012 as early stage breast cancer stage IV on 120 11/11/2018 STAGE/TNM: Metastatic TREATMENT HISTORY: Care?Plan Start?Date Cycle Day Intent FASLODEX 02/06/2019 1 30 Palliative Xgeva?120?mg?q?3?months 11/25/2021 1 90 Palliative Fam?-?trastuzumab?deruxtecan 08/24/2022 1 21 Palliative FERAheme?4?doses 04/10/2024 1 28 Palliative HISTORY OF PRESENT ILLNESS: Vincent Salazar is a 59-year-old Telugu-speaking female who was initially diagnosed with right breast cancer in 2011. 06/06/2012: Right breast mass biopsy showed ER positive, MA positive, HER-2/rivera negative grade 2 invasive ductal carcinoma.According to Ms. Salazar she was also told that she has bone metastases at the time. 08/06/2012?11/22/2012: Patient received 6 cycles of Taxotere and Cytoxan 08/06/2012?10/22/2013: Patient was treated with monthly Zometa. 01/07/2014: Bone biopsy from lumbar spine was negative for metastatic disease. After the chemotherapy patient had a right breast mastectomy 818 2013?07/2014 patient received 6300 cGy radiation to the right chest. She has been on tamoxifen ever since. Patient became menopausal about 6 years ago. 10/26/2018: PET/CT scan was done which showed absent anterior left mandible with hypennetabolic area in the soft tissue. l2 mm. clinical correlation advised. Hypennelabolie metastatic right cervical lymph node posterior to the mandible. 20 mm hypcmietabolic pulmonary nodule anterior left lung 11/12/2018: Patient had a CT scan of the chest with and without contrast which showed left-sided pleural effusion associated pleural parenchymal disease visualized in the left lower lobe. 3 hypodensities within the liver ranging in size from 10-14 mm were also noted. 01/08/2019: CT-guided biopsy of the left lung mass?. 01/22/2019: Palbociclib 125 mg p.o. daily for 21 days followed by 7 days rest is prescribed. 02/06/2019: Patient received first dose of Faslodex. 06/26/2019: CT scan of the neck?more pronounced bone destruction involving the maxilla Enlarging lymph node posterior to the right mandible. 06/28/2019: PET CT scan?Projection angles are different, but there appears to be more bone destruction involving the anterior maxilla on the current study compared to PET/CT October 26, 2018. Otherwise, no interval metastatic disease compared to PET/CT October 26, 2018 01/24/2020: PET CT scan? 01/30/2020: CT scan of the chest abdomen and pelvis with IV contrast? 02/19/2020: CT-guided biopsy of the liver lesion? 06/26/2020: CT scan of the abdomen with and without contrast? 04/05/2021: Ibrance change 100 mg p.o. a every other day for 21 days followed by 7 days rest due to persistent cytopenias that were delaying Faslodex injections. 05/14/2021: CT scan of the chest abdomen and pelvis with IV contrast? 10/18/2021: CT scan of the chest abdomen and pelvis with IV contrast? 10/18/2021: CT scan of the chest abdomen and pelvis with IV contrast? 11/17/2021: X-rays of the right hip? 11/17/2021: Bone scan? 12/05/2021: Patient started taking anastrozole. 12/06/2021?12/20/2021: Patient received 3000 cGy radiation therapy to the right hip. 12/22/2021: Patient received first dose of Xgeva. 06/15/2022: Bone scan? 06/27/2022: [employer] next generation sequencing study 06/28/2022: CT scan of the abdomen and pelvis with IV contrast? 07/04/2022: CT scan of the chest with IV contrast 08/10/2022: Echocardiogram?LVEF 60-64%. 08/24/2022: Ms. Salazar is started on Fam-trastuzumab deruxtecan-nxki ( Enhertu) 01/31/2023: CT scan of the chest abdomen and pelvis with IV contrast? 07/06/2023: CT scan of the chest abdomen and pelvis with IV contrast? 12/13/2023: CT scan of the chest with IV contrast? 05/15/2024: CT scan of the chest abdomen and pelvis with IV contrast OTHER MEDICAL HISTORY/CONDITIONS: FAMILY HISTORY: SOCIAL HISTORY: BUTCHER MEAT HISTORY: MEDICATIONS: 1. Citracal plus D - 315 mg-5 mcg (200 unit) 1 tab Twice a Day 2. Compazine - 10 mg 1 tab three times a day 3. Cozaar - 25 mg Daily 4. Emend - 125 mg (1)- 80 mg (2) 1 Capsule as directed 5. gabapentin - 300 mg 1 Capsule twice a day 6. ibuprofen - 400 mg Three times a day 7. Keppra - 250 mg 1 tab Daily 8. Keppra - 500 mg 2 tab Twice a Day 9. Nexium - 40 mg Each Day 10. ondansetron - 8 mg 1 tab one tablet po three times a day 11. oxycodone - 5 mg 1 tab three times a day 12. Tylenol Extra Strength - 500 mg 2 tab As needed Medications Last Reconciled by Brenda Giles MA on 11/26/2024 ALLERGIES: No Known Drug Allergies REVIEW OF SYSTEMS: A complete 14-point review of systems was performed and is negative except as noted in interval history. PHYSICAL EXAMINATION: VITAL SIGNS: PAIN: 7 - Between severe and very severe pain ECOG Performance Status: 3 - Symptomatic; limited self-care; spends >50% of time in bed, not bedridden Conjunctiva pink. Neck is supple. No adenopathy in the neck, axilla or inguinal region. Chest clear to auscultation. No wheezes or rails audible. CVS rhythm regular. Abdomen is soft. No hepatosplenomegaly palpable. No areas of tenderness present in the abdomen or in the right upper quadrant. Extremities left arm in pronation. Patient able to lift the arm overhead. She feels radiating pain to her forearm. Hand is deformed.. LABORATORY DATA: I have personally reviewed and interpreted each of the patient?s relevant lab tests, abnormal findings are below: Date 11/25/24 ??GLUCOSE,RANDOM?(mg/dL) 140?H ??BLOOD?UREA?NITROGEN?(mg/dL) 8?L ??CREATININE?(mg/dL) 0.50?L ??SODIUM?(mmol/L) 139 ??POTASSIUM?(mmol/L) 3.5 ??CHLORIDE?(mmol/L) 102 ??CrCl?(CandG)?(ml/min) 111.21 ??AST/SGOT?(Unit/L) 51?H ??ALT/SGPT?(Unit/L) 12 ??ALKALINE?PHOSPHATASE?(Unit/L) 248?H ??BILIRUBIN,?TOTAL?(mg/dL) 1.8?H ??PROTEIN?TOTAL?(gm/dl) 7.4 ??ALBUMIN,?SERUM?(gm/dl) 3.5 ??GLOBULIN?(gm/dl) 3.9?H ??ALBUMIN/GLOBULIN?RATIO 0.9?L ??CALCIUM,?SERUM?(mg/dL) 8.9 ??CALCIUM?SERUM?(CORRECTED)?(mg/dL) 9.3 ASSESSMENT/PLAN: Metastatic breast cancer Patient is ER/MA positive HER2 2+ Patient was initially treated with anastrozole followed by fulvestrant and Ibrance On progression patient has been on Enhertu as HER2 2+ No other targetable mutations were seen Patient's biopsy is still pending Patient has been on calcium and Xgeva for her bone disease Patient's last scan showed overall stable disease except osteoblastic lesions in the bones Patient has left lower lobe lung mass which is likely causing Pancoast like symptoms Patient is very reluctant to get radiation even though radiation was offered by Dr. Bradford She says that radiation till now has not helped her much Discussed changing therapy to chemotherapy for rapid response as patient is in severe pain Will give chemotherapy with a TC for 4 cycles Will hold radiation therapy for now Patient still to complete MRI of the brain as per radiology recommendation to see if patient need any treatment for brain lesion Will get PET CT scan to see baseline disease status at this time Patient likely have neuropathic pain from the cancer Can increase pain medications to 10 mg oxycodone and can get every 4-6 hours as needed to for better control Patient also advised to take gabapentin every 6 hours Patient do not want hospice referral at this time Patient have IHSS and requesting more hours to help History of right breast invasive ductal carcinoma initially diagnosed on 06/06/2012. History of meningioma as described above. Status post resection in 201110/25/2024 MRI is concerning for a 3 mm lesion in the brain. Three-phase MRI with gadolinium contrast ordered as per radiologist 09/30/2024 x-ray reviewed of hips and shows osteoblastic metastasis involving right femoral neck intertrochanteric region of proximal left femur s/p radiation MRI shoulder with intravenous contrast on 09/28/2024 shows 11 mm focus of osseous mets in the left humeral neck 09/28/2024 MRI C-spine shows suspicious metastatic disease C7 and T1 but CT scan do not show the spots continue Xgeva. Continue Citracal 1 tablet p.o. twice daily. Patient is having transaminitis from Enhertu and her worsening pain shows us she likely having progression I will like to start Ms. Salazar on chemotherapy with TC MARIANNA Discussed side effects of chemotherapy and patient agreed to proceed with the treatment After chemotherapy patient will be put on exemestane and everolimus Will wait for biopsy results. Chemo can be started as soon as patient get cleared by insurance CBC CMP PET CT scan MRI brain biopsy with NGS panel and new chemotherapy DC plans RETURN TO CLINIC: 4 weeks BILLING AND COMPLIANCE: I reviewed external records from providers outside my specialty as summarized above. I spent a total of 50 minutes on this patient?s care on the day of their visit excluding time spent related to any billed procedures. This time includes time spent with the patient as well as time spent documenting in the medical record, reviewing patients records and tests, obtaining history, placing orders, communicating with other healthcare professionals, counseling the patient, family or caregiver, and/or care coordination for the diagnoses above. Electronically Signed by: Yamil Olmstead MD T: 1:56 PM CC: Will? PCP: Long Abbasi Referring: Long Abbasi This document was completed utilizing speech recognition software. Grammatical errors, random word insertions, pronoun errors, and incomplete sentences are an occasional consequence of this system due to software limitations, ambient noise, and hardware issues. Any formal questions or concerns about the content, text or information contained within the body of this dictation should be directly addressed to the provider for clarification.
== END 2024-12-20 23:59 | disposition home or self-care (01) ==
LOC: SCTC 08:21
PROVIDERS: PCP Family Medicine; Referring Provider Family Medicine; Visit Provider Internal Medicine Hematology & Oncology
DX: Z51.0 Encounter for antineoplastic radiation therapy (principal); C50.411 Malignant neoplasm of upper-outer quadrant of right female breast; C78.02 Secondary malignant neoplasm of left lung; C79.51 Secondary malignant neoplasm of bone; Z17.0 Estrogen receptor positive status [ER+]; Z17.22 Progesterone receptor negative status; Z17.31 Human epidermal growth factor receptor 2 positive status; R74.01 Elevation of levels of liver transaminase levels; G89.3 Neoplasm related pain (acute) (chronic)
CPT/HCPCS: 36591; 77014; 77280; 77290; 77300; 77334; 77412; 77470; 80053; 82378; 85025; 86300; 96360; 99212; A4216; J1642; J7030; G0463

== ENCOUNTER 2024-12-26 10:24 | Emergency (ER) | payer MEDICAID, SELFPAY ==
[2024-12-26 10:26] VITALS: BMI 25.2
[2024-12-26 10:33] VITALS: BP 168/88; PULSE 107; RESP 18; TEMP 36.6; O2SAT 96
--- NOTE | 2024-12-26 10:40 | XR_ITS ---
Examination: PA lateral chest 2 views TECHNIQUE: Upright PA lateral chest 2 views Exam date and time: 2024 1054 hours Comparison February 19, 2020 INDICATIONS: History lung carcinoma, patient states voices changing FINDINGS: Volume loss left lung with extensive opacity in the left upper lobe and left lower lobe with probable pleural fluid Right Port-A-Cath tip right atrium IMPRESSION: Atelectasis dense consolidation and/or tumor masses in the left lung, consider CT chest post intravenous contrast follow-up
--- NOTE | 2024-12-26 10:40 | XR_ITS ---
Examination: Duplex scan of the upper extremity, unilateral left complete Date and time of exam: December 26, 2024 at 1204 hours INDICATIONS: Diagnosis brain cancer undergoing radiation, onset left arm swelling and pain beginning 3 months ago Technique: Duplex scan of the extremity veins using B-mode/grayscale imaging and Doppler spectral analysis and color flow Attention is directed to internal echogenicity, compression and augmentation involving these veins, color flow assessment, spectral analysis Findings: Major deep venous structures in the extremity demonstrate normal course and caliber. There is no evidence of deep vein thrombosis. Poor visualization left subclavian vein Normal color flow and spectral analysis Impression: Limited study, no DVT demonstrated
--- NOTE | 2024-12-26 10:40 | EKG_ITS ---
[facility] Test Date: 2024-12-26 Pat Name: VINCENT ROLDAN Department: Room: - Gender: Female [employer]: : 1965 Requested By: Pj Yen (ANEL) Order Number: [id number] Reading MD: Pj Yen (PHARMACOEPIDEMIOLOGIST) Measurements Intervals [place] Rate: 106 P: 30 CT: 150 QRS: 12 QRSD: 78 T: 39 QT: 346 QTc: 461 Interpretive Statements SINUS TACHYCARDIA SEPTAL MYOCARDIAL INFARCTION , PROBABLY OLD [40+ ms Q WAVE IN V1/V2] Compared to ECG 02/08/2024 11:09:42 Sinus rhythm no longer present Myocardial infarct finding still present /store/S0/[id number]/ecg/[id number].pdf
--- NOTE | 2024-12-26 10:41 | PD.EDRME ---
Rapid Medical Screening Exam RME Arrival date/time: 12/26/24 10:24 59-year-old female with history of breast cancer with mets presents to the emergency department today with complaints of left arm swelling Chief Complaint: Extremity Injury, Upper Time Seen by Provider: 12/26/24 10:35 Vital signs: Vital Signs Temperature 97.9 F 12/26/24 10:33 Pulse Rate 107 H 12/26/24 10:33 Respiratory Rate 18 12/26/24 10:33 Blood Pressure 168/88 H 12/26/24 10:33 Pulse Oximetry (%) 96 12/26/24 10:33 Oxygen Delivery Method Room Air 12/26/24 10:33
[2024-12-26 11:55] LABS: Collection Type, Urine Clean Catch
[2024-12-26 12:05] LABS: Bacteria,Urine Rare; Bilirubin,Urine Negative (Negative); Blood,Urine Negative (Negative); Color,Urine Yellow (Lt Yel-Yel); Glucose, Urine Negative (Negative); Ketones,Urine Trace (Negative); Leukocyte Esterase,Urine Negative (Negative); Nitrite,Urine Negative (Negative); Protein,Urine Trace (Neg - Trace); RBC,Urine 1 /hpf (0-3); Specific Gravity,Urine 1.025 (1.001-1.035); Squamous Epithelial Cell,Urine 1 /hpf (0-5); WBC,Urine 1 /hpf (0-5)
[2024-12-26 12:10] LABS: Clarity,Urine Hazy (Clear/Hazy)
[2024-12-26 12:13] LABS: Amphetamine/Methamp Scrn,U Negative (Negative); Barbiturate Screen,Urine Negative (Negative); Benzodiazepines Screen,Urine Negative (Negative); Benzoylecgonine Screen, Ur Negative (Negative); Fentanyl Screen,Urine Negative (Negative); Opiate Screen,Urine Positive (Negative); THC Screen,Urine Negative (Negative)
[2024-12-26 13:01] LABS: Basophils % (Auto) 1 % (0-2.5); Eosinophils # (Auto) 0.1 Thou/mm3 (0.0-0.5); Eosinophils % (Auto) 2 % (0-10); Hematocrit 41.4 % (36.0-46.0); Hemoglobin 14.2 g/dL (12.0-16.0); Immature Granulocytes % (Auto) 0 % (0-0); Immature Granulocytes Auto 0.01 Thou/mm3 (0.00-0.00); Lymphocytes # (Auto) 0.5 Thou/mm3 (1.0-4.8); Lymphocytes % (Auto) 13 % (10-50); Mean Corpuscular HGB Conc 34.3 g/dl (31.0-37.0); Mean Corpuscular Hemoglobin 36.3 pg (25.0-35.0); Mean Corpuscular Volume 106 fL (80-100); Monocytes # (Auto) 0.5 Thou/mm3 (0.0-0.8); Monocytes % (Auto) 15 % (0-12); Neutrophils # (Auto) 2.3 Thou/mm3 (1.8-7.7); Neutrophils % (Auto) 69 % (37-80); Nucleated Red Blood Cell % 0 /100 WBC (0); RDW Standard Deviation 50.1 fL (36.4-46.3); Red Blood Count 3.91 Miln/mm3 (4.00-5.20); White Blood Count 3.4 Thou/mm3 (3.6-11.0)
[2024-12-26 13:17] LABS: Alanine Aminotransferase 11 U/L (10-49); Albumin, Serum 3.3 gm/dL (3.5-5.0); Albumin/Globulin Ratio 0.9 (1.2-2.2); Alkaline Phosphatase 246 U/L (46-116); Anion Gap 7 (7-16); Aspartate Amino Transferase 54 U/L (0-34); BUN/Creatinine Ratio 14 Ratio (12-20); Bilirubin,Total 1.5 mg/dL (0.3-1.2); Blood Urea Nitrogen 7 mg/dL (9-23); Calcium 8.6 mg/dL (8.3-10.6); Calcium (Corrected) 9.2 mg/dL (8.5-10.1); Carbon Dioxide 25.7 mMol/L (20.0-31.0); Chloride 107 mMol/L (98-107); Creatinine (Component) 0.5 mg/dL (0.6-1.3); Globulin 3.5 gm/dL (2.3-3.5); Glucose 139 mg/dL (74-106); Magnesium 1.8 mg/dL (1.6-2.6); Osmolality,Calculated 279 (275-295); Sodium 140 mMol/L (136-145); Total Protein 6.8 gm/dL (5.7-8.2); Troponin I < 0.020 ng/mL (0.0-0.045); eGFR > 60 See Note
[2024-12-26 13:18] LABS: INR 1.3 (0.9-1.3); Partial Thromboplastin Time 28.7 Seconds (22.0-36.0); Platelet Count 66 Thou/mm3 (140-440)
[2024-12-26 13:33] LABS: Slide Review Platelets confirmed
[2024-12-26 13:34] LABS: B-Type Natriuretic Peptide 35 pg/mL (0-100)
--- NOTE | 2024-12-26 15:24 | PD.EDUPEX ---
Upper Extremity Injury RME/HPI General Chief Complaint: Extremity Injury, Upper Stated Complaint: Left arm swelling x mos but worse today. Chemo Time Seen by Provider: 12/26/24 10:35 Arrival date/time: 12/26/24 10:24 RME / HPI RME / HPI narrative: 59-year-old female with history of breast cancer with mets to the bone, lung, and brain presents to the emergency department today with complaints of left arm swelling. It has been ongoing for the last several weeks, severity mild. Denies any redness. Currently followed by oncologist. Related Data Home Medications ?Medication ?Instructions ?Recorded ?Confirmed calcium 600 mg (as 1 cap PO QDAY 01/07/19 02/18/20 carbonate)-vitamin D3 5 mcg (200 unit) capsule (Calcium 600 + D(3)) esomeprazole magnesium 40 mg 40 mg PO QDAY 01/07/19 02/18/20 capsule,delayed release (Nexium) losartan 25 mg tablet 50 mg PO QDAY 01/07/19 02/18/20 phenytoin sodium extended 300 mg 300 mg PO HS 01/07/19 02/18/20 capsule Previous Rx's ?Medication ?Instructions ?Recorded hydroxyzine HCl 50 mg tablet 50 mg PO TID PRN anxiety #30 tabs 03/25/21 metoclopramide HCl 10 mg tablet 10 mg PO Q6H PRN nausea and 02/08/24 (Reglan) vomiting #14 tabs Allergies Allergy/AdvReac Type Severity Reaction Status Date / Time No Known Allergies Allergy Verified 03/25/21 10:39 Review of Systems Review of Systems Narrative Review of Systems: Review of system reviewed and within normal limits except mentioned in HPI ED Exam Narrative Physical exam: VITAL SIGNS: Reviewed. GENERAL APPEARANCE: Alert and interactive, follows commands, no acute distress, HEAD AND FACE: Non-traumatic. ENT: PERRL, pink conjunctivitis, eyelid no trauma, Mucous membrane moist. NECK: Supple, nontender, no nuchal rigidity. CHEST: No tenderness, no crepitus, no paradoxical movement, no retractions. LUNGS: Clear, well ventilated, symmetric, no rales, no wheezing, no ronchi, no stridor, good breath sounds bilaterally. HEART: Regular rate, regular rhythm, no murmur, no gallops. ABDOMEN: Soft, positive bowel sounds, nondistended, no guarding, nontender, no rebound, no masses, RECTAL: Deferred. GENITAL: Deferred. NEUROLOGICAL: Gross motor function intact sensory function intact, Appropriate for age. MUSCULOSKELETAL: low back nontender, full range of motion. EXTREMITIES: Left upper extremity swelling, +1, limited range of motion. No redness, radial pulses and ulnar pulses +2 SKIN: Color pink, dry, no rash, no lacerations, no abrasions, no contusions. LYMPHATICS: Deferred. Course Quality Measures none Orders Category Date Time Status EKG (ED ONLY) *Do not use* NOW Care 12/26/24 10:40 Completed EKG (ED Only) Stat Exams 12/26/24 10:40 Ordered US venous doppler UE LT Stat Exams 12/26/24 10:40 Completed XR chest 2V Stat Exams 12/26/24 10:40 Completed B-Type Natriuretic Peptide Stat Lab 12/26/24 12:48 Completed CBC Stat Lab 12/26/24 12:48 Completed Comprehensive Metabolic Panel Stat Lab 12/26/24 12:48 Completed Drug Screen,Urine Stat Lab 12/26/24 11:50 Completed Magnesium Stat Lab 12/26/24 12:48 Completed Partial Thromboplastin Time Stat Lab 12/26/24 12:48 Completed Prothrombin Time with INR Stat Lab 12/26/24 12:48 Completed Troponin I Stat Lab 12/26/24 12:48 Completed Urinalysis Stat Lab 12/26/24 11:50 Completed Vital Signs Vital signs: Vital Signs Temperature 97.9 F 12/26/24 10:33 Pulse Rate 107 H 12/26/24 10:33 Respiratory Rate 18 12/26/24 10:33 Blood Pressure 168/88 H 12/26/24 10:33 Pulse Oximetry (%) 96 12/26/24 10:33 Oxygen Delivery Method Room Air 12/26/24 10:33 Extremity Injury MDM Narrative MDM Narrative:: 59-year-old female with history of breast cancer with mets to the bone, lung, and brain presents to the emergency department today with complaints of left arm swelling. It has been ongoing for the last several weeks, severity mild. Denies any redness. Currently followed by oncologist. Laboratory workup came back with leukocytosis 3.4, the rest of the labs unremarkable. Patient ultrasound of the left upper extremities negative for DVT. Chest x-ray showed Atelectasis dense consolidation and/or tumor masses in the left lung, consider CT chest post intravenous contrast follow-up Results discussed with the patient. Patient was advised to elevate the arm as needed and do range of motion of the shoulder and elbow. As needed Patient data External records reviewed:: None Clinical information provided by:: patient Social determinants that could affect healthcare access:: none Patient has the following chronic illnesses:: Breast cancer with mets How is presenting disease/condition affected by chronic disease/condition?: exacerbated by Evaluation data The following diagnostics were reviewed and interpreted by me:: lab results and radiology exam(s) Lab and/or radiology exams considered but not ordered:: None Interpretation Summary: See results in MDM Medications / Prescriptions Medications or Prescriptions considered but not ordered:: None Medication administrations:: None Consultations Consultation(s) initiated? (list below): No Diagnosis Upper Extremity Injury Differential Diagnosis: other (DVT left upper extremity, lymphedema left upper extremity, left arm swelling) Most likely diagnosis given after review of the tests above:: Left arm swelling Admission Indicated Admission indicated?: not indicated Admission Request Was there a request for admission?: No Admission Attestation Admission request attestation: Stable Disposition Plan Disposition Plan: Discharge Discharge Attestation Discharge Attestation: The patient and all family members were given an opportunity to ask questions and understood the discharge instructions. Discharge instructions specifically effects, indications for sooner follow up or return to the emergency department, and the expected course of current diagnosis. Patient condition: Stable Discharge Plan Plan Patient Disposition: HOME (Self Care) Disposition Comment: Stable Prescriptions/Referrals Prescriptions/Med Rec: No Action hydroxyzine HCl 50 mg tablet 50 mg PO TID PRN (Reason: anxiety) Qty: 30 0RF esomeprazole magnesium [Nexium] 40 mg Capsule,Delayed Release(Dr/Ec) 40 mg PO QDAY losartan 25 mg Tablet 50 mg PO QDAY Calcium 600 + D(3) 600 mg calcium- 200 unit Capsule 1 cap PO QDAY phenytoin sodium extended 300 mg Capsule 300 mg PO HS metoclopramide HCl [Reglan] 10 mg tablet 10 mg PO Q6H PRN (Reason: nausea and vomiting) Qty: 14 0RF Referrals: Klever Daniel MD [Primary Care Provider] - In 1 week Problem List Clinical Impression: Left arm swelling, Breast cancer metastasized to lung Patient/Caregiver Discharge Instructions Discharge Activity: activity as tolerated Education Materials: ED Lymphedema Additional Instructions: Thank you for the opportunity for serving you today. You are stable for discharged . You are advised to: Follow-up with your PCP in 1 to 2 days Return to ED for worsening of symptoms Elevate left upper extremity as needed Print Language: German Stand Alone Forms: Romelia Award Info., Patient Portal Info Letter PA/KAREN Supervising Physician PA/KAREN Supervising Physician: Md Apryl
== END 2024-12-26 15:46 | disposition home or self-care (01) ==
PROVIDERS: Nurse Practitioner Primary Care; Emergency Provider Emergency Medicine; PCP Family Medicine
DX: M79.89 Other specified soft tissue disorders (principal); C50.919 Malignant neoplasm of unspecified site of unspecified female breast; C78.00 Secondary malignant neoplasm of unspecified lung; D72.829 Elevated white blood cell count, unspecified; J98.11 Atelectasis; C79.31 Secondary malignant neoplasm of brain; R00.0 Tachycardia, unspecified; C79.51 Secondary malignant neoplasm of bone
CPT/HCPCS: 36415; 71046; 80053; 80307; 81001; 83735; 83880; 84484; 85025; 85610; 85730; 93005; 93971; 99284

== ENCOUNTER 2025-01-02 10:58 | Outpatient (RCR) | payer MEDICAID, SELFPAY ==
--- NOTE | 2024-12-23 09:38 | CTCTRTNOTE_ITS ---
[facility] [address] [place], [place] [address] Weekly Management Date: 12/23/2024 ?? Name: VINCENT ROLDAN : 1965 A. Patient is currently at 1200 cGy. Scheduled 3000 cGy to right frontal area for brain mets. B. Patient is tolerating treatment well. C. Resume radiation therapy. Completes XRT to brain in 2 weeks. 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 Plan is to get 1 cycle of chemo followed by radiation therapy to the left superior sulcus. Electronically signed by: Florentino Bradford M.D. 12/23/2024 9:36 AM
--- NOTE | 2025-01-01 01:37 | CTCFLWUP_ITS ---
Patient: VINCENT SALAZAR : 1965 Page 11 of 13 FOLLOW UP NOTE DATE OF SERVICE: 12/31/2024 NAME: VINCENT SALAZAR ACCOUNT: [id number] : 1965 AGE: 59 INTERVAL HISTORY: Patient is a known metastatic breast cancer ER/CT positive HER2 low. Patient. Patient just completed radiation therapy with Dr. Bradford today. Patient now requesting to start chemotherapy. Patient have not recovered function in her left arm but actually have more paralysis of the left arm. ONCOLOGY HISTORY:?[facility] Hx? DIAGNOSIS: Malignant neoplasm of upper-outer quadrant of right female breast [ICD10] C50.411; Secondary malignant neoplasm of bone [ICD10] C79.51 DATE OF DIAGNOSIS: 06/06/2012 as early stage breast cancer ER/CT positive HER2 1+ stage IV on 120 11/11/2018 12/13/2024 right femur metastatic breast carcinoma ER 1- 5% positive CT negative HER2 negative STAGE/TNM: Metastatic TREATMENT HISTORY: Care?Plan Start?Date Cycle Day Intent FASLODEX 02/06/2019 1 30 Palliative Xgeva?120?mg?q?3?months 11/25/2021 1 90 Palliative Fam?-?trastuzumab?deruxtecan 08/24/2022 1 21 Palliative FERAheme?4?doses 04/10/2024 1 28 Palliative DOCEtaxel?75,?Cyclophosphamide?600 01/27/2025 1 21 Palliative HISTORY OF PRESENT ILLNESS: Vincent Salazar is a 59-year-old Palestinian-speaking female who was initially diagnosed with right breast cancer in 2011. 06/06/2012: Right breast mass biopsy showed ER positive, CT positive, HER-2/rivera negative grade 2 invasive ductal carcinoma.According to Ms. Salazar she was also told that she has bone metastases at the time. 08/06/2012?11/22/2012: Patient received 6 cycles of Taxotere and Cytoxan 08/06/2012?10/22/2013: Patient was treated with monthly Zometa. 01/07/2014: Bone biopsy from lumbar spine was negative for metastatic disease. After the chemotherapy patient had a right breast mastectomy 818 2013?07/2014 patient received 6300 cGy radiation to the right chest. She has been on tamoxifen ever since. Patient became menopausal about 6 years ago. 10/26/2018: PET/CT scan was done which showed absent anterior left mandible with hypennetabolic area in the soft tissue. l2 mm. clinical correlation advised. Hypennelabolie metastatic right cervical lymph node posterior to the mandible. 20 mm hypcmietabolic pulmonary nodule anterior left lung 11/12/2018: Patient had a CT scan of the chest with and without contrast which showed left-sided pleural effusion associated pleural parenchymal disease visualized in the left lower lobe. 3 hypodensities within the liver ranging in size from 10-14 mm were also noted. 01/08/2019: CT-guided biopsy of the left lung mass?. 01/22/2019: Palbociclib 125 mg p.o. daily for 21 days followed by 7 days rest is prescribed. 02/06/2019: Patient received first dose of Faslodex. 06/26/2019: CT scan of the neck?more pronounced bone destruction involving the maxilla Enlarging lymph node posterior to the right mandible. 06/28/2019: PET CT scan?Projection angles are different, but there appears to be more bone destruction involving the anterior maxilla on the current study compared to PET/CT October 26, 2018. Otherwise, no interval metastatic disease compared to PET/CT October 26, 2018 01/24/2020: PET CT scan? 01/30/2020: CT scan of the chest abdomen and pelvis with IV contrast? 02/19/2020: CT-guided biopsy of the liver lesion? 06/26/2020: CT scan of the abdomen with and without contrast? 04/05/2021: Ibrance change 100 mg p.o. a every other day for 21 days followed by 7 days rest due to persistent cytopenias that were delaying Faslodex injections. 05/14/2021: CT scan of the chest abdomen and pelvis with IV contrast? 10/18/2021: CT scan of the chest abdomen and pelvis with IV contrast? 10/18/2021: CT scan of the chest abdomen and pelvis with IV contrast? 11/17/2021: X-rays of the right hip? 11/17/2021: Bone scan? 12/05/2021: Patient started taking anastrozole. 12/06/2021?12/20/2021: Patient received 3000 cGy radiation therapy to the right hip. 12/22/2021: Patient received first dose of Xgeva. 06/15/2022: Bone scan? [facility] 06/28/2022: CT scan of the abdomen and pelvis with IV contrast? 07/04/2022: CT scan of the chest with IV contrast 08/10/2022: Echocardiogram?LVEF 60-64%. 08/24/2022: Ms. Salazar is started on Fam-trastuzumab deruxtecan-nxki ( Enhertu) 01/31/2023: CT scan of the chest abdomen and pelvis with IV contrast? 07/06/2023: CT scan of the chest abdomen and pelvis with IV contrast? 12/13/2023: CT scan of the chest with IV contrast? 05/15/2024: CT scan of the chest abdomen and pelvis with IV contrast OTHER MEDICAL HISTORY/CONDITIONS: FAMILY HISTORY: ?[facility]? 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 abemaciclib - 150 mg 1 tab twice daily 2. Citracal plus D - 315 mg-5 mcg (200 unit) 1 tab Twice a Day 3. Compazine - 10 mg 1 tab three times a day 4. Cozaar - 25 mg Daily 5. dexamethasone - 4 mg 8 mg Daily 6. Emend - 125 mg (1)- 80 mg (2) 1 Capsule as directed 7. gabapentin - 300 mg 1 Capsule three times a day 8. ibuprofen - 400 mg Three times a day 9. Keppra - 250 mg 1 tab Daily 10. Keppra - 500 mg 2 tab Twice a Day 11. Nexium - 40 mg Each Day 12. ondansetron - 8 mg 1 tab one tablet po three times a day 13. oxycodone - 5 mg 1 - 2 tab four times a day?[facility]ra Meds? Medications Last Reconciled by Brenda Del Rio MD on 12/31/2024 ALLERGIES: No Known Drug Allergies REVIEW OF SYSTEMS: A complete 14-point review of systems was performed and is negative except as noted in interval history. PHYSICAL EXAMINATION:?[facility] PE? VITAL SIGNS: Temperature?99.2, B/P?151/103, Oxygen?Saturation?93% Weight?134?lbs (Change?since?12/25/24:?4.8?lbs) PAIN: 8 - Very severe pain ECOG Performance Status: 2 - Symptomatic; ambulatory; capable of self-care; >50% of waking hrs. not in bed Neck is supple. No adenopathy in the neck, axilla or inguinal region. Chest clear to auscultation. No wheezes or rails audible. CVS rhythm regular. Abdomen is soft. No hepatosplenomegaly palpable. No areas of tenderness present in the abdomen or in the right upper quadrant. Extremities left arm in pronation. Patient unable to lift the hand hand is deformed.. LABORATORY DATA: I have personally reviewed and interpreted each of the patient?s relevant lab tests, abnormal findings are below: Date 11/25/24 12/26/24 ??WHITE?BLOOD?COUNT?(Thou/mm3) ? 3.4?L ??RED?BLOOD?COUNT?(Miln/mm3) ? 3.91?L ??HEMOGLOBIN?(gm/dl) ? 14.2 ??HEMATOCRIT?(%) ? 41.4 ??PLATELET?COUNT?(Thou/mm3) ? 66?L ??NEUTROPHILS?%,?AUTO?(%) ? 69 ??LYMPH?%,?AUTO?(%) ? 13 ??NEUTROPHILS,?AUTO?(Thou/mm3) ? 2.3 ??GLUCOSE,RANDOM?(mg/dL) 140?H 139?H ??BLOOD?UREA?NITROGEN?(mg/dL) 8?L 7?L ??CREATININE?(mg/dL) 0.50?L 0.50?L ??SODIUM?(mmol/L) 139 140 ??POTASSIUM?(mmol/L) 3.5 4.0 ??CHLORIDE?(mmol/L) 102 107 ??CrCl?(CandG)?(ml/min) 111.21 112.08 ??AST/SGOT?(Unit/L) 51?H 54?H ??ALT/SGPT?(Unit/L) 12 11 ??ALKALINE?PHOSPHATASE?(Unit/L) 248?H 246?H ??BILIRUBIN,?TOTAL?(mg/dL) 1.8?H 1.5?H ??PROTEIN?TOTAL?(gm/dl) 7.4 6.8 ??ALBUMIN,?SERUM?(gm/dl) 3.5 3.3?L ??GLOBULIN?(gm/dl) 3.9?H 3.5 ??ALBUMIN/GLOBULIN?RATIO 0.9?L 0.9?L ??CALCIUM,?SERUM?(mg/dL) 8.9 8.6 ??CALCIUM?SERUM?(CORRECTED)?(mg/dL) 9.3 9.2 ??MAGNESIUM?(mg/dL) ? 1.8 ASSESSMENT/PLAN:?Matti Olmstead Assessment/Plan? Metastatic breast cancer Patient is ER/CT positive HER2 2+ on metastatic biopsy in 2019 Patient was initially treated with anastrozole followed by fulvestrant and Ibrance On progression patient has been on Enhertu as HER2 2+ No other targetable mutations were seen Patient has been on calcium and Xgeva for her bone disease Patient had a left lower lobe mass since 2023 which on most imaging have been stable but has been causing pain in the left lower lobe and patient was getting pain management by Dr. Bradford. Patient's pain has been becoming intractable. Patient has left lower lobe lung mass which is likely causing Pancoast like symptoms Patient just completed radiation to her shoulder. Unfortunately patient was also found to have a small lesion in the frontal lobe and patient received radiation to the brain. -Patient was unable to be continued on Enhertu as she developed transaminitis and was not resolving even on holding therapy -Also patient's clinically symptoms including intractable pain was more concerning for progression in the bones and in the Pancoast tumor -Patient received radiation to this spot but without any clinical improvement -Patient had femur biopsy -the biopsy of the bone is showing ER 1 to 5%, CT negative and HER2 negative -Given above finding, patient was advised to start chemotherapy with TC -As patient was receiving radiation, chemotherapy was deferred and we were also waiting for LFTs to recover -Patient's labs reviewed today and are better as well as patient has completed radiation therapy -Advised nurses to schedule patient MARIANNA for tomorrow. Patient will get treatment with first chemotherapy Once patient has received 4 chemotherapies and show good clinical improvement, next therapy Therapy will be abemaciclib plus Faslodex, and exemestane and everolimus after that -Will follow patient with natjennifera to see response to treatment as well as clinical and imaging after 2 cycles ORDERS: Order # Description [id number] Follow Up 3 Week [id number] Infusion 5 Hours [id number] Injection Clinic 15 Min [id number] CBC + Comprehensive Metabolic Panel [id number] Lab Appointment [id number] Follow Up Appointment [id number] Infusion 5 Hours [id number] Injection Clinic 15 Min [id number] CBC + Comprehensive Metabolic Panel [id number] Lab Appointment [id number] Follow Up Appointment [id number] Infusion 5 Hours [id number] Injection Clinic 15 Min [id number] CBC + Comprehensive Metabolic Panel [id number] Lab Appointment [id number] Follow Up Appointment [id number] Infusion 5 Hours [id number] Injection Clinic 15 Min [id number] CBC + Comprehensive Metabolic Panel [id number] Lab Appointment [id number] Follow Up Appointment RETURN TO CLINIC: 3-4 weeks BILLING AND COMPLIANCE: I reviewed external records from providers outside my specialty as summarized above. I spent a total of 50 minutes on this patient?s care on the day of their visit excluding time spent related to any billed procedures. This time includes time spent with the patient as well as time spent documenting in the medical record, reviewing patients records and tests, obtaining history, placing orders, communicating with other healthcare professionals, counseling the patient, family or caregiver, and/or care coordination for the diagnoses above. Electronically Signed by: Yamil Olmstead MD T: 1:34 AM CC: Will? PCP: Yamil Olmstead Referring: Yamil Olmstead This document was completed utilizing speech recognition software. Grammatical errors, random word insertions, pronoun errors, and incomplete sentences are an occasional consequence of this system due to software limitations, ambient noise, and hardware issues. Any formal questions or concerns about the content, text or information contained within the body of this dictation should be directly addressed to the provider for clarification.
[2025-01-01 08:44] LABS: Basophils % (Auto) 0 % (0-2.5); Eosinophils % (Auto) 0 % (0-10); Hematocrit 39.9 % (36.0-46.0); Hemoglobin 13.7 g/dL (12.0-16.0); Immature Granulocytes % (Auto) 0 % (0-0); Immature Granulocytes Auto 0.01 Thou/mm3 (0.00-0.00); Lymphocytes # (Auto) 0.3 Thou/mm3 (1.0-4.8); Lymphocytes % (Auto) 11 % (10-50); Mean Corpuscular HGB Conc 34.3 g/dl (31.0-37.0); Mean Corpuscular Hemoglobin 36.2 pg (25.0-35.0); Mean Corpuscular Volume 106 fL (80-100); Monocytes % (Auto) 2 % (0-12); Neutrophils # (Auto) 2.3 Thou/mm3 (1.8-7.7); Neutrophils % (Auto) 88 % (37-80); Nucleated Red Blood Cell % 0 /100 WBC (0); RDW Standard Deviation 49.5 fL (36.4-46.3); Red Blood Count 3.78 Miln/mm3 (4.00-5.20)
[2025-01-01 08:51] LABS: Platelet Count 62 Thou/mm3 (140-440); White Blood Count 2.7 Thou/mm3 (3.6-11.0)
[2025-01-01 09:05] LABS: Alanine Aminotransferase 12 U/L (10-49); Albumin, Serum 3.2 gm/dL (3.5-5.0); Albumin/Globulin Ratio 0.9 (1.2-2.2); Alkaline Phosphatase 235 U/L (46-116); Anion Gap 8 (7-16); Aspartate Amino Transferase 54 U/L (0-34); BUN/Creatinine Ratio 17 Ratio (12-20); Bilirubin,Total 1.8 mg/dL (0.3-1.2); Blood Urea Nitrogen 10 mg/dL (9-23); Calcium 8.8 mg/dL (8.3-10.6); Calcium (Corrected) 9.4 mg/dL (8.5-10.1); Chloride 103 mMol/L (98-107); Creatinine (Component) 0.6 mg/dL (0.6-1.3); Globulin 3.4 gm/dL (2.3-3.5); Glucose 279 mg/dL (74-106); Osmolality,Calculated 282 (275-295); Potassium 3.9 mMol/L (3.4-5.1); Sodium 137 mMol/L (136-145); Total Protein 6.6 gm/dL (5.7-8.2); eGFR > 60 See Note
[2025-01-01 09:26] LABS: CA 15-3 17.7 U/mL (<32.4); Carcinoembryonic Antigen 3.4 ng/mL (0.0-5.0)
[2025-01-01 13:33] LABS: Slide Review Platelets confirmed
== END 2025-01-20 23:59 | disposition home or self-care (01) ==
LOC: SCTC 10:58
PROVIDERS: PCP Family Medicine; Referring Provider Internal Medicine Hematology & Oncology; Visit Provider Internal Medicine Hematology & Oncology
DX: Z51.0 Encounter for antineoplastic radiation therapy (principal); Z51.11 Encounter for antineoplastic chemotherapy; C50.411 Malignant neoplasm of upper-outer quadrant of right female breast; C79.51 Secondary malignant neoplasm of bone; C78.02 Secondary malignant neoplasm of left lung; Z17.0 Estrogen receptor positive status [ER+]; Z17.21 Progesterone receptor positive status; Z17.31 Human epidermal growth factor receptor 2 positive status; Z90.11 Acquired absence of right breast and nipple
CPT/HCPCS: 36415; 36430; 77336; 77412; 80053; 82378; 85025; 86300; 86850; 86900; 86901; 86965; 96360; 96367; 96372; 96413; 96417; 99212; A4216; J1100; J1453; J1642; J2405; J7030; J7040; J7050; J9075; J9171; P9035; Q5122; G0463; J2506

== ENCOUNTER → 2025-01-02 | Outpatient (CLI) | payer MEDICAID, SELFPAY ==
--- NOTE | 2025-01-02 09:36 | XR_ITS ---
Examination: Duplex scan of the upper extremity, unilateral left Date and time of exam: January 02, 2025, 10:15 AM Indications: Left arm swelling and pain beginning 4 months ago Technique: Duplex scan of the extremity veins using B-mode/grayscale imaging and Doppler spectral analysis and color flow Attention is directed to internal echogenicity, compression and augmentation involving these veins, color flow assessment, spectral analysis Findings: Major deep venous structures in the extremity demonstrate normal course and caliber. No diagnostic visualization of the subclavian vein There is no evidence of deep vein thrombosis. Normal color flow and spectral analysis Impression: Negative for DVT..
== END | disposition home or self-care (01) ==
LOC: CDIM 09:26
PROVIDERS: PCP Family Medicine; Referring Provider Radiology Therapeutic Radiology; Visit Provider Radiology Therapeutic Radiology
DX: M79.89 Other specified soft tissue disorders (principal); C50.411 Malignant neoplasm of upper-outer quadrant of right female breast; C78.02 Secondary malignant neoplasm of left lung; C79.31 Secondary malignant neoplasm of brain; C79.51 Secondary malignant neoplasm of bone
CPT/HCPCS: 93971

== ENCOUNTER 2025-01-07 09:18 | Inpatient (IN) | payer MEDICAID, SELFPAY ==
[2025-01-07] VITALS (12 sets, daily range): BP systolic 68–143; BP diastolic 44–82; PULSE 82–133; RESP 16–97; TEMP 36.7–38.8; O2SAT 91–99; BMI 23.0
--- NOTE | 2025-01-07 09:32 | PD.EDWEAK ---
ED Weakness RME/HPI General Chief complaint: [facility] Compl[facility] Stated complaint: PAIN/ WEAKNESS Time Seen by Provider: 01/07/25 09:32 Arrival date/time: 01/07/25 09:18 RME / HPI RME / HPI Narrative: 59 year old female with history of seizures, metastatic breast cancer, undergoing radiation and chemotherapy (last chemo 5 days ago) presents to the ED BIBA from home for evaluation of weakness and full body pain today. Per medics, en route patient was warm to touch and temperature was 102F. While in the ED patient reports feeling unwell with diffuse body pain with no known modifying factors. Related Data Home Medications ?Medication ?Instructions ?Recorded ?Confirmed calcium 600 mg (as 1 cap PO QDAY 01/07/19 02/18/20 carbonate)-vitamin D3 5 mcg (200 unit) capsule (Calcium 600 + D(3)) esomeprazole magnesium 40 mg 40 mg PO QDAY 01/07/19 02/18/20 capsule,delayed release (Nexium) losartan 25 mg tablet 50 mg PO QDAY 01/07/19 02/18/20 phenytoin sodium extended 300 mg 300 mg PO HS 01/07/19 02/18/20 capsule Previous Rx's ?Medication ?Instructions ?Recorded hydroxyzine HCl 50 mg tablet 50 mg PO TID PRN anxiety #30 tabs 03/25/21 metoclopramide HCl 10 mg tablet 10 mg PO Q6H PRN nausea and 02/08/24 (Reglan) vomiting #14 tabs Allergies Allergy/AdvReac Type Severity Reaction Status Date / Time No Known Allergies Allergy Verified 03/25/21 10:39 Review of Systems Review of Systems Narrative Review of Systems: Constitutional: SEE HPI Eyes: DENIES; Loss of vision Head/Ear/Nose: DENIES; Loss of hearing Throat: DENIES; Dysphagia Cardiovascular: DENIES; Chest pain, dyspnea or syncope Respiratory: DENIES; Shortness of breath Gastrointestinal: DENIES; Rectal bleeding or melena. Genitourinary: DENIES; Dysuria (painful or difficult urination) Musculoskeletal: DENIES; Arthralgia (pain in a joint),; Skin: DENIES; Rash Neurological: SEE HPI Psychiatric: DENIES; recent major life stressor, emotional problem, illicit drug use or abuse Allergic/Immunologic: DENIES; Urticaria (hives) Past Medical History Past Medical History NEUROLOGIC: Positive Neurological Disorders, Brain Tumor and Seizures CARDIAC: Positive Cardiac Disorders, Hypercholesterolemia and Hypertension RESPIRATORY: Positive Asthma and Bronchitis GASTROINTESTINAL: Positive Gastrointestinal Disorders and Gastroesophageal Reflux Disease GENITOURINARY: Positive Genitourinary Disorders REPRODUCTIVE: Positive Breast Cancer and Previous Pregnancies MUSCULOSKELETAL: Positive Bone Cancer OTHER HISTORY: Positive Hospitalization, Shingles, Chemotherapy, Radiation Therapy and Breast Cancer Family History FAMILY HISTORY: Positive Family Cardiac Disorders and Family Surgery Surgical History SURGICAL: Positive Mastectomy and Section Social History SMOKING STATUS: Never smoker ED Exam Narrative Physical exam: Physical Exam: General: The vital signs were reviewed. Soft speaking voice. patient was seen initially in the ambulance bay she is warm has a fever appears quite weak and ill. When she went into room 18 she was found to be hypotensive. And soon after that a septic alert was called. The patient is non-toxic, in no apparent distress and appears healthy with a patent airway, no respiratory distress and has no apparent circulatory problems. Head & Scalp: Normocephalic, atraumatic. Face: Appears normal and is without lesions, deformity. Ears: Left external pinna appears normal. Right external pinna appears normal. Eyes: The sclera is anicteric. No obvious photophobia. The Left and Right Orbit/Lid/Conjunctiva appears normal without swelling, discoloration or injection. Nose: The nose is without deformity, discharge or tenderness; Throat: Appears normal. The mucous membranes are pink and moist without exudates, redness or mass seen. The tongue appears normal. Neck: The neck is supple and no apparent mass or adenopathy. Chest: The chest wall is normal in size and symmetry and has no chest wall tenderness or crepitus. The patient displays normal ventilator effort without retractions, accessory muscle use and has adequate air movement bilaterally with no wheezes and no rales. Cardiovascular: Regular rate and rhythm; No murmurs, rubs, or gallops; Gastrointestinal: The abdomen appears normal. No obvious hernias or mass. The abdomen is soft and benign, non-distended, with no pain, no guarding and no rebound tenderness. Bowel sounds are present and normal sounding. No CVA tenderness. Genitourinary: Back/Spine: Extremities/Musculoskeletal/lymphatic: The bilateral upper and lower extremities are warm. There is no evidence of arterial insufficiency. There is no evidence of venous insufficiency/edema. The patient spontaneously moves bilateral upper and lower extremities with no pain and no limitation of movement. There is no apparent, injury or trauma. Skin: The skin is warm, dry and intact. No rashes. No petechia. No purpura. No abnormal bruising. The color is appropriate with no cyanosis. Mental status/Psychiatric: Mental status is appropriate for age. The patient has no apparent delusions, visual hallucinations, no apparent audible hallucinations. The patient has no apparent suicidal thoughts/ideation and no apparent homicidal thoughts/ideation. Neurological: The patient is awake, alert, interactive, cordial, cooperative and is oriented to name and situation. The patient follows commands and answers historical question with no impairment. There is no visual disturbance apparent. The pupils are equal and reactive bilaterally with normal eye movements and no diplopia The bilateral upper and lower extremities have normal strength, normal range of motion and normal functioning. The gait, station and balance not tested due to acuity Course Quality Measures Current suspected stage: sepsis Possible source: unknown Blood cultures ordered: completed in ED Antibiotic ordered: Yes Pertinent labs: 01/07/25 01/07/25 10:14 13:34 Lactic Acid 3.0 H mMol/L 2.1 H mMol/L (0.4-2.0) (0.4-2.0) Procalcitonin 4.24 H ng/ml (0.0-0.49) sepsis Orders Category Date Time Status Bedside Blood Glucose NOW Care 01/07/25 09:37 Active Bedside COVID-19 Antigen Test NOW Care 01/07/25 09:38 Active Bedside Influenza A&B Antigen Test NOW Care 01/07/25 09:38 Completed EKG (ED ONLY) *Do not use* NOW Care 01/07/25 09:[address] head/brain wo con Stat Exams 01/07/25 09:37 Ordered EKG (ED Only) Stat Exams 01/07/25 09:37 Draft XR chest 1V portable Stat Exams 01/07/25 09:37 Completed Alcohol, Blood Medical Stat Lab 01/07/25 10:14 Completed Ammonia Stat Lab 01/07/25 10:14 Completed B-Type Natriuretic Peptide Stat Lab 01/07/25 10:14 Completed Blood Culture (Lab) Stat Lab 01/07/25 10:14 Received CBC Stat Lab 01/07/25 10:14 Completed Comprehensive Metabolic Panel Stat Lab 01/07/25 10:14 Completed Drug Screen,Urine Stat Lab 01/07/25 13:27 Completed Lactate (Lactic Acid) Stat Lab 01/07/25 10:14 Completed Lactic Acid, 3 HR Stat Lab 01/07/25 13:34 Completed Path Review Blood Smear Stat Lab 01/07/25 10:14 Completed Procalcitonin Stat Lab 01/07/25 10:14 Completed Prothrombin Time with INR Stat Lab 01/07/25 10:14 Completed RSV [Respiratory Syncytial Virus Ag] Stat Lab 01/07/25 09:38 Ordered Strep A Rapid Stat Lab 01/07/25 09:38 Ordered Troponin I Stat Lab 01/07/25 10:14 Completed Type and Screen Stat Lab 01/07/25 10:14 Completed Urinalysis Stat Lab 01/07/25 13:27 Completed Urinalysis, C/S if Indicated Stat Lab 01/07/25 13:27 Completed Urine Culture Stat Lab 01/07/25 13:27 Received Venous Blood Gas Stat Lab 01/07/25 10:14 Completed Piper/Tazo 3.375 gm Premix [Zosyn] Med 01/07/25 09:37 Discontinued 3.375 gm in 50 ml IV X1 Sodium Chloride 0.9% 1000 ml [Ns] 1,000 ml Med 01/07/25 09:37 Discontinued IV 1,000 mls/hr Sodium Chloride 0.9% 1000 ml [Ns] 2,000 ml Med 01/07/25 09:37 Active IV 150 mls/hr Sodium Chloride 0.9% 1000 ml [Ns] 2,000 ml Med 01/07/25 11:37 Discontinued IV 999 mls/hr Vancomycin/Ns 1 gm Ivpb 200 ml Med 01/07/25 11:34 Discontinued IV X1 Vital Signs Vital signs: Vital Signs Temperature 101.9 F H 01/07/25 09:23 Pulse Rate 133 H 01/07/25 09:23 Respiratory Rate 20 01/07/25 09:23 Blood Pressure 78/54 L 01/07/25 09:23 Pulse Oximetry (%) 91 L 01/07/25 09:23 Oxygen Delivery Method Room Air 01/07/25 09:23 Pulse ox is 91% on room air which is low. Weakness MDM Narrative MDM Narrative:: Patient appears quite ill on arrival who was found to have a fever hypotension and tachycardic. She seems to be mentating clearly. She has no headache. Patient was started with fluids a dose of Zosyn was ordered upfront and once I had vital signs back which revealed hypotension we started her on further fluid boluses. I have reevaluated this patient multiple times and at 1340 hrs. patient has completed 4 L of IV fluids and her blood pressures, from the 60s to the 90 range. She actually looks better clinically. I have ordered another 2 L verbally to the nurse and put a page to the critical care doctor. Medical workup reveals chest x-ray reveals a left hemithorax with a pleural-based mass in which appears to be old and there is also a port in the right chest. Laboratory studies reveal a CBC with a white count of 0.4 consistent with serious neutropenia hemoglobin is 11.2 platelet count is low at 11 consistent with severe thrombocytopenia and note patient had chemo 5 days ago. PT is 18.0 INR is 1.7 venous blood gas pH is 7.57 and pCO2 30 consistent with a respiratory alkalosis. Electrolytes are within normal limits BUN is 11 creatinine 0.5 glucose is 110 lactic acid is slightly elevated 2.1. Total bilirubin is elevated at 6.1. Transaminases AST is 40 ALT is 11 ammonia slightly elevated 47. BNP is 143 procalcitonin is elevated 4.24. Urinalysis is still pending but was collected as of 1327 hrs. Urine drug sink and back positive for opiates and fentanyl as alcohol level was negative. Dr. De Dios critical care came down and we discussed the case and she is going to see the patient for admit to the ICU. Patient is on her fifth and sixth liter of IV fluids at this time. The decision to start pressors has not been made and Dr. De Dios will come back and let me know. Obviously patient is critically and Vanco and Zosyn have been given. Upon Dr. De Dios's evaluation the patient blood pressure now up to 105 and the maps are over 70 and patient is clearly better and therefore we called the hospitalist. Unfortunate got delayed in that call but at 1610 hrs. I spoke with the hospitalist and they are going admit the patient. They are fully aware that she is neutropenic her hypotension has normalized and she got her Vanco and Zosyn. Patient data External records reviewed:: [facility] previous records (I reviewed outpatient oncology note from 01/01/2025 ) and EMS form Clinical information provided by:: patient and EMS Social determinants that could affect healthcare access:: none Patient has the following chronic illnesses:: seizures, metastatic breast cancer, undergoing radiation and chemotherapy (last chemo 5 days ago) How is presenting disease/condition affected by chronic disease/condition?: exacerbated by Evaluation data The following diagnostics were reviewed and interpreted by me:: lab results, radiology exam(s) and EKG tracing(s) (Sinus tachycardia, rate 105, no STEMI ) Lab and/or radiology exams considered but not ordered:: None Interpretation Summary: Ordering Physician: Sigifredo Pink MD Date of Service: 01/07/25 Procedure(s): XR chest 1V portable Accession Number(s): [id number] cc: Sigifredo Pink MD; Travis Reagan MD; Klever Daniel MD~ Examination: AP chest single view TECHNIQUE: AP portable upright chest single view Exam date and time: January 07, 2025 0932 hours INDICATIONS: Chest pain beginning 2 days ago. FINDINGS: Extensive opacity in the left hemithorax again noted Part of this appears to be pleural disease Right internal jugular Port-A-Cath tip right atrium Normal heart size IMPRESSION: Extensive pleural parenchymal disease left hemithorax, consider CT chest post intravenous contrast follow-up Dictated By: Travis Reagan MD Signed By: <Electronically signed by Travis Reagan MD in [place]> 01/07/25 1127 Medications / Prescriptions Medications or Prescriptions considered but not ordered:: None Medication administrations:: Medication Administration History Sodium Chloride (Ns) 2,000 mls @ 150 mls/hr IV .[id number] ONE Stop: 01/07/25 22:56 Last Admin: 01/07/25 11:43 Dose: 150 mls/hr Documented By: Infusion: 01/07/25 11:43 Dose: Infused Documented By: Admin: 01/07/25 10:59 Dose: 150 mls/hr Documented By: EDWIN Discontinued Medications Piperacillin/Tazobactam/Dextrose (Zosyn) 3.375 gm in 50 mls @ 100 mls/hr IV X1 ONE Stop: 01/07/25 10:06 Last Infusion: 01/07/25 11:33 Dose: Infused Documented By: Admin: 01/07/25 11:01 Dose: 100 mls/hr Documented By: EDWIN Sodium Chloride (Ns) 1,000 mls @ 1,000 mls/hr IV .Q1H ONE Stop: 01/07/25 10:36 Last Infusion: 01/07/25 12:45 Dose: Infused Documented By: Admin: 01/07/25 11:39 Dose: 1,000 mls/hr Documented By: EDWIN Vancomycin/Sodium Chloride (Vancomycin/Ns 1 Gm Ivpb) 200 mls @ 120 mls/hr IV X1 ONE Stop: 01/07/25 13:13 Last Infusion: 01/07/25 13:35 Dose: Infused Documented By: Admin: 01/07/25 11:48 Dose: 120 mls/hr Documented By: EDWIN Sodium Chloride (Ns) 2,000 mls @ 999 mls/hr IV .Q2H1M ONE Stop: 01/07/25 13:37 Last Infusion: 01/07/25 14:25 Dose: Infused Documented By: Admin: 01/07/25 11:46 Dose: 999 mls/hr Documented By: EDWIN See above Consultations Consultation(s) initiated? (list below): Yes Consultation #1 (Physician, Specialty, Details): I spoke with library supervisor Dr. De Dios. Discussed patients PMHx, HPI, ED course, exam findings, labs, and radiology results. She accepts the patient for admission. Diagnosis Weakness Differential Diagnosis: acute myocardial infarction, anemia, hypothyroidism, sepsis and dehydration Most likely diagnosis given after review of the tests above:: Neutropenia Sepsis Stage IV breast cancer in female Mass of pleura Elevated lactic acid level Thrombocytopenia Admission Indicated Admission indicated?: indicated Admission Request Was there a request for admission?: Yes Admission Attestation Admission request attestation: Discussed case with [] from Hospitalist service regarding admission. Discussed patients ED course, exam findings, labs, and radiology results. The Hospitalist [agrees,declines] to accept the patient for admission. Disposition Plan Disposition Plan: Admit Critical Care Time Critical Care Time Critical Care Time: Yes Total Critical Care Time (min.): 55 Attestation: The high probability of sudden, clinically significant deterioration in the patient's condition required the highest level of my preparedness to intervene urgently. The services I provided to this patient were to treat and/or prevent clinically significant deterioration. Services included the following: chart data review, reviewing nursing notes and/or old charts, documentation time, sales and leasing consultant collaboration regarding findings and treatment options, medication orders and management, direct patient care, vital sign assessments and ordering, interpreting and reviewing diagnostic studies and lab tests. Aggregate critical care time includes only time during which I was engaged in work directly related to the patient's care, as described above, whether at bedside or elsewhere in the Emergency Department. It did not include time spent performing other reported procedures or the services of residents, students, nurses or physician assistants. Discharge Plan Plan Patient Disposition: Admit Acute Care w/in Hospital Disposition Comment: Hospitalist to admit Prescriptions/Referrals Prescriptions/Med Rec: No Action hydroxyzine HCl 50 mg tablet 50 mg PO TID PRN (Reason: anxiety) Qty: 30 0RF esomeprazole magnesium [Nexium] 40 mg Capsule,Delayed Release(Dr/Ec) 40 mg PO QDAY losartan 25 mg Tablet 50 mg PO QDAY Calcium 600 + D(3) 600 mg calcium- 200 unit Capsule 1 cap PO QDAY phenytoin sodium extended 300 mg Capsule 300 mg PO HS metoclopramide HCl [Reglan] 10 mg tablet 10 mg PO Q6H PRN (Reason: nausea and vomiting) Qty: 14 0RF Referrals: Klever Daniel MD [Primary Care Provider] - In 1 week Problem List Clinical Impression: Neutropenia, Sepsis, Stage IV breast cancer in female, Mass of pleura, Elevated lactic acid level, Thrombocytopenia Patient/Caregiver Discharge Instructions Print Language: Hungarian Stand Alone Forms: Romelia Award Info., Patient Portal Info Letter
--- NOTE | 2025-01-07 09:37 | XR_ITS ---
Examination: AP chest single view TECHNIQUE: AP portable upright chest single view Exam date and time: January 07, 2025 0932 hours INDICATIONS: Chest pain beginning 2 days ago. FINDINGS: Extensive opacity in the left hemithorax again noted Part of this appears to be pleural disease Right internal jugular Port-A-Cath tip right atrium Normal heart size IMPRESSION: Extensive pleural parenchymal disease left hemithorax, consider CT chest post intravenous contrast follow-up
--- NOTE | 2025-01-07 09:37 | XR_ITS ---
Examination: CT brain head without contrast. 2-D sagittal coronal reconstructions Date and time of exam:January 08, 2025 0859 hours Comparison June 15, 2022 INDICATIONS: Loss of consciousness episode today CTDI: vol (mGy):49.9 DLP: (mGycm):1013 Technique: Multiple CT axial sections of the brain have been obtained, 5 mm slice thickness. Contrast has not been administered. 2-D sagittal, coronal reconstructions have been obtained Low dose protocols were performed. One or more of the following dose reduction techniques were used; automated exposure control, adjustment of the mA and/or KV according to patient size, use of iterative reconstruction technique. Findings: Left frontal craniotomy defect Stable bifrontal encephalomalacia compared with June 15, 2022 No interval hemorrhage or mass effect Ventricles are normal in size IMPRESSION: No interval hemorrhage or mass effect
--- NOTE | 2025-01-07 09:37 | EKG_ITS ---
[facility] Test Date: 2025-01-07 Pat Name: VINCENT ROLDAN Department: Room: - Gender: Female Presentation Designer: : 1965 Requested By: Sigifredo Pink Order Number: [id number] Reading MD: Sigifredo Pink Measurements Intervals [place] Rate: 105 P: 49 [place]: 142 QRS: 33 QRSD: 89 T: 67 QT: 365 QTc: 483 Interpretive Statements SINUS TACHYCARDIA SEPTAL MYOCARDIAL INFARCTION , PROBABLY OLD [40+ ms Q WAVE IN V1/V2] Compared to ECG 12/26/2024 11:10:49 No significant changes /store/S0/[id number].pdf
[2025-01-07 10:28] LABS: Base Excess, Venous 5 (-3-3); O2 Saturation, Venous 100 % (96-97); PCO2, Venous 30 mmHg (36-56); PO2, Venous 100 mmHg (15-58); pH, Venous 7.57 (7.33-7.66)
[2025-01-07 10:31] LABS: Basophils % (Auto) 0 % (0-2.5); Eosinophils % (Auto) 0 % (0-10); Hematocrit 31.7 % (36.0-46.0); Hemoglobin 11.2 g/dL (12.0-16.0); Immature Granulocytes % (Auto) 0 % (0-0); Lymphocytes % (Auto) 40 % (10-50); Mean Corpuscular HGB Conc 35.3 g/dl (31.0-37.0); Mean Corpuscular Hemoglobin 35.6 pg (25.0-35.0); Mean Corpuscular Volume 101 fL (80-100); Monocytes % (Auto) 40 % (0-12); Neutrophils % (Auto) 20 % (37-80); Nucleated Red Blood Cell % 0 /100 WBC (0); RDW Standard Deviation 45.2 fL (36.4-46.3); Red Blood Count 3.15 Miln/mm3 (4.00-5.20)
[2025-01-07 10:47] LABS: White Blood Count < 0.4 Thou/mm3 (3.6-11.0)
[2025-01-07 10:48] LABS: INR 1.7 (0.9-1.3)
[2025-01-07] MEDS: SODIUM CHLORIDE 0.9% 1000 ML 2,000 ML 150 ML IV ×2 (10:59→11:43)
[2025-01-07] MEDS: PIPER/TAZO 3.375 GM PREMIX 3.375 GM/50 ML BAG IV (11:01)
[2025-01-07 11:02] LABS: B-Type Natriuretic Peptide 143 pg/mL (0-100)
[2025-01-07 11:05] LABS: Ammonia 47 uMol/L (11-32)
[2025-01-07 11:16] LABS: Alanine Aminotransferase 11 U/L (10-49); Albumin, Serum 2.8 gm/dL (3.5-5.0); Alcohol, Blood Medical < 10.0 mg/dL (0-10.0); Alkaline Phosphatase 157 U/L (46-116); Anion Gap 10 (7-16); Aspartate Amino Transferase 40 U/L (0-34); BUN/Creatinine Ratio 22 Ratio (12-20); Bilirubin,Total 6.1 mg/dL (0.3-1.2); Blood Urea Nitrogen 11 mg/dL (9-23); Calcium 8.1 mg/dL (8.3-10.6); Calcium (Corrected) 9.1 mg/dL (8.5-10.1); Carbon Dioxide 26.1 mMol/L (20.0-31.0); Chloride 102 mMol/L (98-107); Creatinine (Component) 0.5 mg/dL (0.6-1.3); Globulin 2.8 gm/dL (2.3-3.5); Glucose 110 mg/dL (74-106); Osmolality,Calculated 276 (275-295); Potassium 3.5 mMol/L (3.4-5.1); Procalcitonin 4.24 ng/ml (0.0-0.49); Sodium 138 mMol/L (136-145); Total Protein 5.6 gm/dL (5.7-8.2); Troponin I < 0.020 ng/mL (0.0-0.045); eGFR > 60 See Note
[2025-01-07] MEDS: SODIUM CHLORIDE 0.9% 1000 ML 1,000 ML IV (11:39)
[2025-01-07] MEDS: SODIUM CHLORIDE 0.9% 1000 ML 2,000 ML 999 ML IV (11:46)
[2025-01-07] MEDS: VANCOMYCIN/NS 1 GM IVPB 200 ML IV ×2 (11:48→22:08)
[2025-01-07 12:09] LABS: Path Review Blood Smear Sent to Pathologist
--- NOTE | 2025-01-07 13:01 | PC.NURSE ---
Per patient and family member to throw away soiled clothes. porter pants, brown long sleeve shirt, black and white slippers, black beanie. Nurse notified.
[2025-01-07 13:16] LABS: Platelet Count 11 Thou/mm3 (140-440)
[2025-01-07 13:18] LABS: Slide Review Platelets confirmed
[2025-01-07 13:20] LABS: Reflex Lactate? Y
[2025-01-07 13:38] LABS: Collection Type, Urine Clean Catch
[2025-01-07 13:41] LABS: Lactic Acid, 3 HR 2.1 mMol/L (0.4-2.0)
[2025-01-07 13:47] LABS: Bacteria,Urine 1+; Bilirubin,Urine 1+ (Negative); Blood,Urine Negative (Negative); Clarity,Urine Clear (Clear/Hazy); Color,Urine Drk-Yellow (Lt Yel-Yel); Glucose, Urine Negative (Negative); Ketones,Urine 1+ (Negative); Leukocyte Esterase,Urine Negative (Negative); Nitrite,Urine Positive (Negative); Protein,Urine Trace (Neg - Trace); RBC,Urine 3 /hpf (0-3); Squamous Epithelial Cell,Urine < 1 /hpf (0-5); WBC,Urine 3 /hpf (0-5)
[2025-01-07 13:55] LABS: Amphetamine/Methamp Scrn,U Negative (Negative); Barbiturate Screen,Urine Negative (Negative); Benzodiazepines Screen,Urine Negative (Negative); Benzoylecgonine Screen, Ur Negative (Negative); Fentanyl Screen,Urine Positive (Negative); Opiate Screen,Urine Positive (Negative); THC Screen,Urine Negative (Negative)
[2025-01-07 14:27] LABS: Culture Indicated,Urine Yes
--- NOTE | 2025-01-07 15:55 | PD.RESCONSUL ---
HPI Data of Consult Primary Care Provider: Klever Daniel MD Consult Narrative History of present illness: 59-year-old female with past medical history of metastatic breast cancer, ER/RI positive, HER2 positive. Recently completed radiation therapy on Monday and chemotherapy on , followed by Dr. Bradford and . Patient presents to ED with chief complaints of generalized weakness, nausea, and oral ulcers that have made it difficult for her to eat. She also reports a decrease in oral intake and severe shortness of breath denies chest pain, palpitation, dysuria, or any other associated symptoms On presentation patient was hypotensive with blood pressure of 78/54, tachycardic, febrile with temperature of 101, and was saturating 91% on room air On physical exam patient appears ill, no focal chest pain, heart palpitation, abdominal pain. Labs revealed leukopenia with WBC of 0.4, macrocytic anemia hemoglobin of 11.2, thrombocytopenia platelets of 11, lactic acid was elevated 2.1, procalcitonin was elevated 4.24, hypocalcemia 8.1, T. bili was 6.1, AST ALT slightly elevated, BNP 143, albumin 2.8. Urinalysis was positive for UTI Chest x-ray revealed extensive pleural-parenchymal disease in the left hemithorax which may indicate infection or progression of metastatic disease. ICU was consulted due to unstable hemodynamics. Past medical history as above Past surgical history right mastectomy 12 years ago Allergies NKDA Social denies drinking, any recreational drug, lives with a sister, she has kids cc:: cc: Review of Systems Review of Systems Narrative Review of Systems: Narrative Review of Systems: GENERAL: Denies chills or diaphoresis. HEENT: Denies visual/hearing changes NEURO: Denies difficulty speaking, visual changes CARDIO: Denies chest pain PULM: Endorses shortness of breath GI: Denies abdominal pain, vomiting, diarrhea, The rest of review of system is otherwise negative except what is mentioned above Exam Vital Signs Temp Pulse Resp BP Pulse Ox O2 Del Method 98.3 F 102 H 20 82/58 L 94 L Room Air 01/07/25 13:29 01/07/25 13:29 01/07/25 13:29 01/07/25 13:29 01/07/25 13:29 01/07/25 13:29 Narrative Exam GENERAL: AOx3, ill-appearing, appears older than her age, HEENT: Head AT/ NC. PERRL. Mucous membranes are dry, white oral thrush noted, poor dentition NECK: Supple, no lymphadenopathy, no carotid bruits. CARDIOVASCULAR: RRR. Normal S1/S2, No m/r/g. No pitting edema of bilateral LEs. RESPIRATORY: Clear to auscultation on R side, decreased on the left side, no wheezing, rhonchi, crackles. Scar noted on the right breast, status post mastectomy GASTROINTESTINAL: Abdomen soft, non tender no palpable masses. Bowel sounds present in all 4 quadrants. MUSCULOSKELETAL:? No cyanosis or edema, no visible joint swelling. Strength 0/5 on left upper extremity, upper extremity range of motion preserved, NEUROLOGICAL: CN II-XII grossly intact. PSYCHIATRIC: Awake and alert, not agitated, normal mood and affect. Results Labs 01/07/25 10:14 01/07/25 10:14 Labs: Short CBC 01/07/25 Range/Units 10:14 WBC < 0.4 L* D (3.6-11.0) Thou/mm3 Hgb 11.2 L D (12.0-16.0) g/dL Hct 31.7 L (36.0-46.0) % Plt Count 11 L* D (140-440) Thou/mm3 BMP 01/07/25 10:14 Sodium 138 Potassium 3.5 Chloride 102 Carbon Dioxide 26.1 BUN 11 Creatinine 0.5 L Glucose 110 H Calcium 8.1 L Cardiac Enzymes 01/07/25 Range/Units 10:14 Troponin I < 0.020 (0.0-0.045) ng/mL Liver Function 01/07/25 Range/Units 10:14 Total Bilirubin 6.1 H (0.3-1.2) mg/dL AST 40 H (0-34) U/L ALT 11 (10-49) U/L Alkaline Phosphatase 157 H (46-116) U/L Albumin 2.8 L (3.5-5.0) gm/dL Urine 01/07/25 Range/Units 13:27 Urine Color Drk-Yellow A (Lt Yel-Yel) Urine Clarity Clear (Clear/Hazy) Urine pH 6.0 (5.0-7.0) Ur Specific [place] 1.030 (1.001-1.035) Urine Protein Trace (Neg - Trace) Urine Glucose (UA) Negative (Negative) ABG Interpretation ABG results: 01/07/25 10:14 VBG pH 7.57 VBG pCO2 30 L VBG pO2 100 H VBG Base Excess 5 H Quality Measures Quality Measures sepsis Current suspected stage: sepsis Possible source: unknown Blood cultures ordered: completed in ED Antibiotic ordered: Yes Medications Home Medications and Allergies Home Medications ?Medication ?Instructions ?Recorded ?Confirmed ?Type calcium 600 mg (as 1 cap PO QDAY 01/07/19 02/18/20 History carbonate)-vitamin D3 5 mcg (200 unit) capsule (Calcium 600 + D(3)) esomeprazole magnesium 40 mg 40 mg PO QDAY 01/07/19 02/18/20 History capsule,delayed release (Nexium) losartan 25 mg tablet 50 mg PO QDAY 01/07/19 02/18/20 History phenytoin sodium extended 300 mg 300 mg PO HS 01/07/19 02/18/20 History capsule Allergies Allergy/AdvReac Type Severity Reaction Status Date / Time No Known Allergies Allergy Verified 03/25/21 10:39 Visit Medications Sodium Chloride (Ns) 2,000 mls @ 150 mls/hr IV .[id number] ONE Stop: 01/07/25 22:56 Last Admin: 01/07/25 11:43 Dose: 150 mls/hr Discontinued Medications Piperacillin/Tazobactam/Dextrose (Zosyn) 3.375 gm in 50 mls @ 100 mls/hr IV X1 ONE Stop: 01/07/25 10:06 Last Infusion: 01/07/25 11:33 Dose: Infused Sodium Chloride (Ns) 1,000 mls @ 1,000 mls/hr IV .Q1H ONE Stop: 01/07/25 10:36 Last Infusion: 01/07/25 12:45 Dose: Infused Vancomycin/Sodium Chloride (Vancomycin/Ns 1 Gm Ivpb) 200 mls @ 120 mls/hr IV X1 ONE Stop: 01/07/25 13:13 Last Infusion: 01/07/25 13:35 Dose: Infused Sodium Chloride (Ns) 2,000 mls @ 999 mls/hr IV .Q2H1M ONE Stop: 01/07/25 13:37 Last Infusion: 01/07/25 14:25 Dose: Infused Assessment & Plan Plan This 59-year-old female with metastatic breast cancer (ER/RI positive, HER2 positive) who recently completed chemotherapy and radiation presents with acute weakness, fever, tachycardia, hypotension, and shortness of breath. Her lab results indicate leukopenia, macrocytic anemia, elevated procalcitonin (suggesting bacterial infection), and liver dysfunction (elevated bilirubin and liver enzymes). The chest X-ray finding of extensive pleural parenchymal disease raises concerns for infection or progression of cancer. Additionally, her urinary tract infection may be contributing to her clinical picture, along with signs of hypoperfusion and possible sepsis. ICU Consultation: -Given the patient's hypotension, tachycardia, fever, and elevated inflammatory markers, patient was likely have neutropenic fever versus sepsis, further monitoring, hemodynamic support, and management. However patient blood pressure is currently above 65, patient appears hemodynamically stable, responded to fluid resuscitation well, patient can be monitored on telemetry -Continue Zosyn and Vancomycin for broad-spectrum coverage given the suspected bacterial infection (likely UTI with a potential source of pneumonia ). Follow-up with the blood culture/urine culture, trend lactic acid, -Patient was administered 6 L of Normal Saline bolus to correct hypotension and improve perfusion. Monitor for fluid overload. Patient responded to fluid resuscitation well, currently map is above 65 -As needed oxygen Therapy: Given oxygen saturation of 91%, administer supplemental oxygen and titrate to maintain SpO2 above 92%. Upon our evaluation patient was saturating 94% in room air -Repeat CBC, CMP, and liver enzymes in 6-12 hours to monitor for trends in white blood cells, liver function, and electrolyte balance. -Supportive Care: Manage symptoms of nausea with antiemetics and provide oral care for ulcers. Consider adding fluconazole, given her history of immunosuppression, patient is at high risk of oral/esophageal candidiasis. -Pain management as needed. -Cardiac Monitoring: Due to elevated BNP and tachycardia, monitor cardiac status closely for signs of heart failure. Patient did receive radiation therapy and chemotherapy which can be another contributing factor for heart failure -Renal Function: Monitor renal function closely, as the patient's clinical state, hypotension, and infection could further affect kidney function. Patient care was discussed with attending physician Dr. Lanre Ward MD PGY-2
--- NOTE | 2025-01-07 16:48 | XR_ITS ---
Examination: Abdomen sonogram, Limited Date and time of exam: January 07, 2025 1515 hours INDICATIONS: Hyperbilirubinemia on laboratory examination today Technique: Real-time porter scale transabdominal sonographic images of the upper abdomen obtained. Findings: Gallbladder sludge Gallbladder wall is thickened 0.38 cm with significant edema Common bile duct is enlarged 0.9 cm no definite stones Pancreatic head 2.8 cm Liver 13.4 cm fatty infiltration right lobe liver lesion 19 x 16 x 18 mm 20 mm liver cyst Normal hepatopedal portal venous flow Partial visualization right pleural effusion IMPRESSION: Gallbladder sludge Suspicious for acute cholecystitis Abnormal enlargement common bile duct 0.9 cm, right lobe liver lesion 19 x 16 x 18 mm Recommend MRCP follow-up
--- NOTE | 2025-01-07 18:02 | XR_ITS ---
Examination: Duplex scan of the upper extremity, unilateral left Date and time of exam: January 07, 2025 1852 hrs. Indications: Breast cancer diagnosis postchemotherapy 5 days ago, onset left arm swelling beginning 3 months ago. Technique: Duplex scan of the extremity veins using B-mode/grayscale imaging and Doppler spectral analysis and color flow Attention is directed to internal echogenicity, compression and augmentation involving these veins, color flow assessment, spectral analysis Findings: Major deep venous structures in the extremity demonstrate normal course and caliber. There is no evidence of deep vein thrombosis. Normal color flow and spectral analysis Impression: Negative for DVT..
--- NOTE | 2025-01-07 18:03 | ESHP_ITS ---
<Statement entered by Bhavin Castillo MD - 01/07/25 21:07> Patient was seen and examined at the bedside. 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 intake with odynophagia in the setting of ulcers. She denied any abdominal discomfort. She was found to have fever chills and foul-smelling urine without dysuria. She recently completed round of radiation therapy with Dr. Bradford and was initiated on chemotherapy a week ago. Patient also was found to have left upper extremity swelling with decreased mobility from last 3 months. In the ED, patient was hypotensive with blood pressure 78/54, tachycardic and febrile saturating well on room air. Chest x-ray showed parenchymal disease in the left hemithorax. Patient had WBC less than 0.4. ANC: 0.0 lactic acidosis. INR 1.7. Liver enzymes were mildly elevated with T. bili of 6.1. Limited abdominal ultrasound showed thickened gallbladder with significant edema and CBD dilation of 0.9 cm. Doppler ultrasound left upper extremity was negative. Patient is admitted for management of neutropenic fever in the setting of recent chemotherapy. Started on cefepime 2 g, Flagyl 500 mg and vancomycin. Will follow with blood cultures, urine cultures and MRSA screen. 2 units of platelets were ordered due to thrombocytopenia platelets 11. Patient receive total 7 L of IV fluids therefore we will hold off on fluids for now. Home medications including Keppra was reconciled. Neutropenic precautions were ordered. All labs and orders were reviewed. I saw and examined the patient, and I agree with current management stated by Dr Sierra MD,PGY1. Plan of care was discussed with the attending physician and resident physician. Disclaimer: Despite multiple revisions, due to the dictation software being used, the document bellow may not be free of grammatical errors including phonetic/typographic errors. However, this does not deter from our commitment to providing health care in the patient's best interest in mind. Dr. Shelley MD, PGY 2 Documentation for date of: 01/07/25 HPI History of Present Illness History of present illness: Lakshmi Salazar is a 59-year-old female with a past medical history of right-sided (ER/MD positive, HER2-low) breast cancer diagnosed 2012 s/p right-sided mastectomy with metastasis to brain, liver, lung, and bone who presented to the ED on 01/07 for generalized weakness and decreased PO intake and odynophagia in setting of oral ulcers. She does not endorse any abdominal pain, N/V/D but does say she has had fever, chills, and foul-smelling urine without dysuria. Of note, she had recently finished her last round of radiation therapy with Dr. Bradford and started on chemotherapy with Dr. Olmstead last week. During this time, it has been noted that patient has had increased swelling in her LUE as well as decreased function for the past three months. Upon presentation to the ED, blood pressure was 78/54, HR of 133, temp 101.9 F and saturating 91% on room air and ICU team was consulted. However, blood pressure did eventually respond to fluid resuscitation as MAP > 65 and thus medicine team was called for admission. Labs showed WBC < 0.4, hemoglobin 11.2 with MCV 101, plt 11, PT 18, INR 1.7, K 3.5, lactate 3.0, t bili 6.1, AST 40, ALP 157, NH3 47, BNP 143, and procal of 4.2. UA dark-yellow, nitrite (+), 1 + bacteria. CXR showed extensive pleural/parenchymal disase in L hemithorax. Abdominal US showed thickened gall bladder wall with significant edema, CBD dilatation of 0.9 cm without stones, 19 x 16 x 18 mm liver cyst. Doppler US of LUE (-) for DVT. Patient admitted for further management of neutropenic fever in setting of recent chemoradiation therapy. 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 PSHx: Right sided mastectomy, craniotomy (?) Review of Systems Review of Systems Systems Reviewed: All systems reviewed, normal except as documented Exam Vital Signs Temp Pulse Resp BP Pulse Ox O2 Del Method O2 Flow Rate 98.3 F 82 16 128/82 96 Nasal Cannula 2 01/07/25 13:29 01/07/25 17:29 01/07/25 17:29 01/07/25 17:29 01/07/25 17:29 01/07/25 17:29 01/07/25 17:29 Narrative Exam General: pleasant, AOx3, laying in bed, able to speak full sentences HEENT: poor dentition, NC/AT, mucous membranes moist, bilateral sclera anicteric Cardiovascular: tachycardic, regular rhythm, S1/S2 present, no murmurs appreciated Pulmonary: clear to auscultation bilaterally, no rales/rhonchi/wheezes Abdominal: soft, non-tender, non-distended, no rebound/guarding, normal bowel sounds present Musculoskeletal: LUE edema, 0/5 strength in LUE, normal ROM Skin: warm and dry, intact, no rashes Results: Labs 01/08/25 05:07 01/08/25 05:07 Labs: Short CBC 01/07/25 Range/Units 10:14 WBC < 0.4 L* D (3.6-11.0) Thou/mm3 Hgb 11.2 L D (12.0-16.0) g/dL Hct 31.7 L (36.0-46.0) % Plt Count 11 L* D (140-440) Thou/mm3 BMP 01/07/25 10:14 Sodium 138 Potassium 3.5 Chloride 102 Carbon Dioxide 26.1 BUN 11 Creatinine 0.5 L Glucose 110 H Calcium 8.1 L Cardiac Enzymes 01/07/25 Range/Units 10:14 Troponin I < 0.020 (0.0-0.045) ng/mL Liver Function 01/07/25 Range/Units 10:14 Total Bilirubin 6.1 H (0.3-1.2) mg/dL AST 40 H (0-34) U/L ALT 11 (10-49) U/L Alkaline Phosphatase 157 H (46-116) U/L Albumin 2.8 L (3.5-5.0) gm/dL Urine 01/07/25 Range/Units 13:27 Urine Color Drk-Yellow A (Lt Yel-Yel) Urine Clarity Clear (Clear/Hazy) Urine pH 6.0 (5.0-7.0) Ur Specific [place] 1.030 (1.001-1.035) Urine Protein Trace (Neg - Trace) Urine Glucose (UA) Negative (Negative) ABG Interpretation ABG results: 01/07/25 10:14 VBG pH 7.57 VBG pCO2 30 L VBG pO2 100 H VBG Base Excess 5 H Quality Measures Quality Measures sepsis Current suspected stage: sepsis Possible source: unknown Blood cultures ordered: completed in ED Antibiotic ordered: Yes Medications Home Medications and Allergies Home Medications ?Medication ?Instructions ?Recorded ?Confirmed ?Type calcium 600 mg (as 1 cap PO QDAY 01/07/1901/07 History carbonate)-vitamin D3 5 mcg (200 unit) capsule (Calcium 600 + D(3)) esomeprazole magnesium 40 mg 40 mg PO QDAY 01/07/19 History capsule,delayed release (Nexium) losartan 25 mg tablet 50 mg PO QDAY 01/07/1901/07 History gabapentin 300 mg capsule 300 mg PO QDAY 01/07/2512/21 History levetiracetam 500 mg tablet 1,000 mg PO Q12H 01/07/25 01/07/25 History ondansetron 8 mg disintegrating 8 mg PO Q8H PRN nausea and vomiting 01/07/25 01/07/25 History tablet oxycodone 5 mg tablet 5 mg PO Q6H 01/07/25 5 History Allergies Allergy/AdvReac Type Severity Reaction Status Date / Time No Known Allergies Allergy Verified 03/25/21 10:39 Visit Medications Acetaminophen (Acetaminophen 325 Mg Tablet) 650 mg PO Q6H PRN PRN Reason: PAIN OR FEVER > 100.4 Stop: 02/06/25 17:31 Sodium Chloride (Ns) 2,000 mls @ 150 mls/hr IV .[id number] ONE Stop: 01/07/25 22:56 Last Admin: 01/07/25 11:43 Dose: 150 mls/hr Piperacillin Sod/Tazobactam (Sod 4.5 gm/ Sodium Chloride) 100 mls @ 200 mls/hr IV Q6HR ERNESTO Stop: 01/14/25 17:58 Levetiracetam (Levetiracetam Inj 100 Mg/Ml Vial 5ml) 1,000 mg IVP Q12HR ERNESTO Stop: 02/06/25 20:59 Metoclopramide HCl (Metoclopramide 5 Mg Tablet) 10 mg PO Q6H PRN PRN Reason: NAUSEA OR VOMITING Stop: 02/06/25 17:31 Oxycodone HCl (Oxycodone Hcl 5 Mg Ir Tab) 5 mg PO Q6HR PRN PRN Reason: PAIN SCALE 4-10(Mod-Sev Stop: 01/12/25 17:31 Pantoprazole Sodium (Pantoprazole Inj 40 Mg Vial) 40 mg IVP QDAY ERNESTO Stop: 02/07/25 08:59 Pharmacy Consult (Vancomycin Pharmacy To Dose 1 Each Each) 1 each IV QDAY ERNESTO Stop: 02/06/25 17:59 Discontinued Medications Piperacillin/Tazobactam/Dextrose (Zosyn) 3.375 gm in 50 mls @ 100 mls/hr IV X1 ONE Stop: 01/07/25 10:06 Last Infusion: 01/07/25 11:33 Dose: Infused Sodium Chloride (Ns) 1,000 mls @ 1,000 mls/hr IV .Q1H ONE Stop: 01/07/25 10:36 Last Infusion: 01/07/25 12:45 Dose: Infused Vancomycin/Sodium Chloride (Vancomycin/Ns 1 Gm Ivpb) 200 mls @ 120 mls/hr IV X1 ONE Stop: 01/07/25 13:13 Last Infusion: 01/07/25 13:35 Dose: Infused Sodium Chloride (Ns) 2,000 mls @ 999 mls/hr IV .Q2H1M ONE Stop: 01/07/25 13:37 Last Infusion: 01/07/25 14:25 Dose: Infused Assessment & Plan Plan Lakshmi Salazar is a 59-year-old female with a past medical history of right-sided (ER/MD positive, HER2-low) breast cancer diagnosed 2012 s/p right-sided mastectomy with metastasis to brain, liver, lung, and bone who was admitted on 01/07 for management of neutropenic fever in setting of recent chemoradiation therapy. #Severe Sepsis in setting of neutropenic fever likely secondary to cholecystitis versus pneumonia versus urinary tract infection #Neutropenic fever secondary to cholecystitis versus pneumonia versus UTI in setting of recent chemoradiation therapy #History of breast cancer status post chemoradiation therapy #Hyperbilirubinemia WBC < 0.4, absolute neutrophil count < 80 (severe), Pro-Esequiel 4.2. Hypotensive with BP 78/54 and temperature 101.9 ?F. CXR showed extensive opacity in left hemithorax. UA nitrite (+), 1+ bacteria. Abdominal ultrasound showed suspicions for acute cholecystitis with enlarged CBD in setting of T. bili of 6.1 and ALP 157. ? Cefepime 2 g IV every 8 hours ? Flagyl 500 mg IV every 8 hours ? Vancomycin IV daily, pharmacy to dose ? Blood cultures 01/07: Pending ? Urine culture 01/07: Pending ? Follow-up MRCP #Thrombocytopenia ? 2 units platelets ordered ? Transfuse 2 units platelets when available ? Follow-up CBC #Lactic acidosis Received 7 L IVF in ED. ? Continue to trend #Left upper extremity swelling ? Follow-up Doppler #Seizures ? Home Keppra 1000 mg twice daily #Microcytic anemia Hemoglobin 12.2, MCV 101. ? Follow-up folate and B12 #History of hypertension ? Hold home antihypertensives given low BP #Chronic pain ? Oxycodone 5 mg p.o. every 6 hours Hospital management: Disposition: Continued management of severe neutropenic fever Fluids: None Diet: Dysphagia 1 Lines: PIV DVT prophylaxis: SCDs GI prophylaxis: Pantoprazole IV [place]: Placed CODE STATUS: full code ----- Plan discussed with attending physician Dr. Suarez and senior resident physician Dr. Shelley Esquivel MD PGY-1 Internal Medicine Attending Provider Attestation/Addendum I have discussed and was present for the essential components of the history, physical examination, diagnosis, and treatment plan with the resident. I agree with the patient's care as documented by the resident and amended herein by me. Regulo Suarez DO. Although this document has been carefully reviewed, there may still be some phonetic and other typographical errors. These errors are purely grammatical due to imperfections in the software program and should not be construed in any way to compromise the substance of the patient's medical care during this visit.
[2025-01-07] MEDS: metroNIDAZOLE/NS 500 MG IVPB 500 MG/100 ML BAG 200 MG IV ×2 (18:53→21:24)
[2025-01-07] MEDS: CEFEPIME INJ 2 GM in SODIUM CHLORIDE 0.9% (Popper) 50 ML IV (18:56)
[2025-01-07 19:26] LABS: Lactate (Lactic Acid) 2.4 mMol/L (0.4-2.0)
[2025-01-07 19:52] LABS: Magnesium 1.4 mg/dL (1.6-2.6)
[2025-01-07] MEDS: oxyCODONE HCL 5 MG IR TAB PO (20:02)
[2025-01-07 20:08] LABS: Vitamin B12 749 pg/mL (211-911)
[2025-01-07 20:33] LABS: Strep A Rapid Negative (Negative)
[2025-01-07 20:38] LABS: Respiratory Syncytial Virus Ag Negative (Negative)
[2025-01-07] MEDS: levETIRAcetam INJ 100 MG/ML VIAL 5ML 1000 MG IVP (20:46)
[2025-01-07] MEDS: POTASSIUM CHLORIDE 10% 20 MEQ/15 ML UDC PO (21:24)
[2025-01-07 22:23] LABS: Reflex Lactate? Y
[2025-01-07 22:50] LABS: Lactic Acid, 3 HR 2.2 mMol/L (0.4-2.0)
[2025-01-08] VITALS (12 sets, daily range): BP systolic 115–152; BP diastolic 64–85; PULSE 105–117; RESP 18–28; TEMP 36.3–37.6; O2SAT 95–97; BMI 23.5
--- NOTE | 2025-01-08 | XR_ITS ---
MRI abdomen, without contrast. MRCP Date and time of exam: January 08, 2025 at 1729 hours INDICATIONS: Generalized abdominal pain today, enlarged common bile duct 9 mm, right lobe liver lesion 19 mm on ultrasound abdomen January 07, 2025 Technique: Multiple axial and coronal images of the abdomen have been obtained with the Siemens 1.5T MRI scanner. Images obtained included T1 weighted transverse images, T2-weighted transverse images, T2-weighted transverse images fat-suppressed, T2 weighted haste fat suppressed transverse images, T1 weighted images, in and out of phase images, T2-weighted coronal images, breath hold, T2 weighted haze coronal images as well as T2 weighted coronal thick slab images, MRCP. Findings: Liver is irregular in contour 24 mm cyst upper medial right lobe of the liver and 12 mm cyst lower right lobe of the liver Gallbladder wall is thickened to 4 mm suspicious for edema, which may relate to the patient's mild ascites Common bile duct 4 mm no common bile duct stones Liver is irregular in contour Mild splenomegaly 13 cm Trace ascites Mild left hydronephrosis IMPRESSION: Cirrhosis versus primary hepatocellular disease Liver cysts No common bile duct or common hepatic duct stones Gallbladder wall is thickened with fluid, but this may relate to the patient's mild ascites, suggest HIDA scan follow-up
[2025-01-08] MEDS: ONDANSETRON INJ 2 MG/ML INJ 2 ML 4 MG IV ×2 (00:29→06:26)
[2025-01-08] MEDS: oxyCODONE HCL 5 MG IR TAB PO (02:23)
[2025-01-08] MEDS: CEFEPIME INJ 2 GM in SODIUM CHLORIDE 0.9% (Popper) 50 ML IV ×3 (03:10→20:13)
[2025-01-08 06:13] LABS: Basophils % (Auto) 0 % (0-2.5); Eosinophils % (Auto) 0 % (0-10); Hematocrit 29.8 % (36.0-46.0); Hemoglobin 10.2 g/dL (12.0-16.0); Immature Granulocytes % (Auto) 0 % (0-0); Lymphocytes # (Auto) 0.1 Thou/mm3 (1.0-4.8); Lymphocytes % (Auto) 29 % (10-50); Mean Corpuscular HGB Conc 34.2 g/dl (31.0-37.0); Mean Corpuscular Hemoglobin 35.5 pg (25.0-35.0); Mean Corpuscular Volume 104 fL (80-100); Monocytes # (Auto) 0.1 Thou/mm3 (0.0-0.8); Monocytes % (Auto) 65 % (0-12); Neutrophils % (Auto) 6 % (37-80); Nucleated Red Blood Cell % 0 /100 WBC (0); RDW Standard Deviation 47.8 fL (36.4-46.3); Red Blood Count 2.87 Miln/mm3 (4.00-5.20)
[2025-01-08] MEDS: metroNIDAZOLE/NS 500 MG IVPB 500 MG/100 ML BAG 200 MG IV ×3 (06:22→23:03)
[2025-01-08 06:25] LABS: White Blood Count < 0.4 Thou/mm3 (3.6-11.0)
[2025-01-08 06:26] LABS: Platelet Count 32 Thou/mm3 (140-440)
[2025-01-08 07:16] LABS: Alanine Aminotransferase 8 U/L (10-49); Albumin, Serum 2.9 gm/dL (3.5-5.0); Alkaline Phosphatase 119 U/L (46-116); Anion Gap 9 (7-16); Aspartate Amino Transferase 25 U/L (0-34); BUN/Creatinine Ratio 24 Ratio (12-20); Bilirubin,Total 6.5 mg/dL (0.3-1.2); Blood Urea Nitrogen 12 mg/dL (9-23); Calcium 7.3 mg/dL (8.3-10.6); Calcium (Corrected) 8.2 mg/dL (8.5-10.1); Carbon Dioxide 23.9 mMol/L (20.0-31.0); Chloride 109 mMol/L (98-107); Cholesterol 126 mg/dL (132-200); Creatinine (Component) 0.5 mg/dL (0.6-1.3); Estimated Creatinine Clearance 100.2 mL/min (>60); Globulin 2.8 gm/dL (2.3-3.5); Glucose 101 mg/dL (74-106); HDL Cholesterol 18 mg/dL (40-60); LDL Cholesterol,Calculated 81 mg/dL (0-130); Magnesium 1.6 mg/dL (1.6-2.6); Osmolality,Calculated 282 (275-295); Phosphorous 1.6 mg/dL (2.4-5.1); Potassium 3.6 mMol/L (3.4-5.1); Sodium 142 mMol/L (136-145); Thyroid Stimulating Hormone 0.26 uIU/mL (0.55-4.78); Total Protein 5.7 gm/dL (5.7-8.2); Triglycerides 133 mg/dL (30-150); eGFR > 60 See Note
[2025-01-08 08:54] LABS: Free T4 (Free Thyroxine) 0.96 ng/dL (0.89-1.76)
[2025-01-08] MEDS: VANCOMYCIN/D5W 1,250 MG IVPB 250 ML 120 MG IV (09:38)
[2025-01-08] MEDS: levETIRAcetam INJ 100 MG/ML VIAL 5ML 1000 MG IVP ×2 (09:38→20:49)
[2025-01-08] MEDS: POTASSIUM PHOS 22.5 MMOL in SODIUM CHLORIDE 0.9% 500 ML 500 ML 82.778 MMOL IV (09:38)
[2025-01-08] MEDS: PANTOPRAZOLE INJ 40 MG VIAL IVP (09:38)
--- NOTE | 2025-01-08 09:40 | PC.SS ---
Patient Lakshmi Salazar is a 59 Year old female admitted for secondary malignant neoplasm of left lung. SS me with patient and family at bedside. Patient reports she lives at home with family. She reports surrogate decision maker is her sister, Miriam Salazar [phone]. prior to admission she did not utilize any source of DME to assist with ambulation, patient is able to complete ADL's independently. [facility] her PCP. At time of discharge patient will return back home, family will provide transportation. Next of kin, Sister, Miriam Salazar Discharge plan: Home
--- NOTE | 2025-01-08 10:51 | ESPR_ITS ---
Subjective Subjective Interval history: neutropenic sepsis with pos bc for gnr. will stop vanco/flagyl and leave on cefepime for now. Exam Vital Signs Temp Pulse Resp BP Pulse Ox O2 Del Method O2 Flow Rate 99.6 F 117 H 18 151/77 H 96 Nasal Cannula 2 01/08/25 08:00 01/08/25 08:00 01/08/25 08:00 01/08/25 08:00 01/08/25 08:00 01/08/25 08:00 01/08/25 08:00 Objective - Internal Medicine Labs 01/08/25 05:07 01/08/25 05:07 Labs: Laboratory Results - last 24 hr 01/07/25 01/07/25 01/07/25 10:14 13:27 13:34 WBC < 0.4 L* D RBC 3.15 L Hgb 11.2 L D Hct 31.7 L MCV 101 H MCH 35.6 H MCHC 35.3 RDW Std Deviation 45.2 Plt Count 11 L* D Neut % (Auto) 20 L Lymph % (Auto) 40 [place] % (Auto) 40 H Eos % (Auto) 0 Baso % (Auto) 0 Neut # (Auto) 0.0 L Lymph # (Auto) 0.0 L [place] # (Auto) 0.0 Eos # (Auto) 0.0 Baso # (Auto) 0.0 Immature Gran # (Auto) 0.00 Absolute Nucleated RBC 0.00 Immature Gran % 0 Nucleated RBC % 0 Smear Path Review Sent to Pathologist PT 18.0 H D INR 1.7 H Sodium 138 Potassium 3.5 Chloride 102 Carbon Dioxide 26.1 Anion Gap 10 BUN 11 Creatinine 0.5 L Estim Creat Clear Calc Not Performed. eGFR > 60 BUN/Creatinine Ratio 22 H Glucose 110 H Calculated Osmolality 276 Lactic Acid 2.1 H Calcium 8.1 L Corrected Calcium 9.1 Phosphorus Magnesium Total Bilirubin 6.1 H AST 40 H ALT 11 Alkaline Phosphatase 157 H Ammonia 47 H Troponin I < 0.020 B-Natriuretic Peptide 143 H Total Protein 5.6 L Albumin 2.8 L Globulin 2.8 Albumin/Globulin Ratio 1.0 L Triglycerides Cholesterol LDL Cholesterol, Calc HDL Cholesterol Cholesterol/HDL Ratio Vitamin B12 Procalcitonin 4.24 H TSH Free T4 Ur Collection Type Clean Catch Urine Color Drk-Yellow A Urine Clarity Clear Urine pH 6.0 Ur Specific [place] 1.030 Urine Protein Trace Urine Glucose (UA) Negative Urine Ketones 1+ A Urine Blood Negative Urine Nitrite Positive Urine Bilirubin 1+ A Urine Urobilinogen (Auto) 4.0 Ur Leukocyte Esterase Negative Urine RBC 3 Urine WBC 3 Ur Squamous Epith Cells < 1 Urine Bacteria 1+ A Ur Culture Indicated? Yes Urine Opiates Screen Positive A Urine Fentanyl Screen Positive A Ur Barbiturates Screen Negative U Amphetamin/Meth Scrn Negative U Benzodiazepines Scrn Negative U Cocaine Metab Screen Negative U Marijuana (THC) Screen Negative Ethyl Alcohol < 10.0 RSV Rapid Group A Strep Rapid Misc Test Result Platelets confirmed Blood Type O Positive Antibody Screen NEGATIVE Blood Bank Wristband ID Yes Blood Bank Comment PLATP Ready 01/07/25 01/07/25 01/07/25 19:19 20:00 22:34 WBC RBC Hgb Hct MCV MCH MCHC RDW Std Deviation Plt Count Neut % (Auto) Lymph % (Auto) [place] % (Auto) Eos % (Auto) Baso % (Auto) Neut # (Auto) Lymph # (Auto) [place] # (Auto) Eos # (Auto) Baso # (Auto) Immature Gran # (Auto) Absolute Nucleated RBC Immature Gran % Nucleated RBC % Smear Path Review PT INR Sodium Potassium Chloride Carbon Dioxide Anion Gap BUN Creatinine Estim Creat Clear Calc eGFR BUN/Creatinine Ratio Glucose Calculated Osmolality Lactic Acid 2.4 H 2.2 H Calcium Corrected Calcium Phosphorus 2.0 L Magnesium 1.4 L Total Bilirubin AST ALT Alkaline Phosphatase Ammonia Troponin I B-Natriuretic Peptide Total Protein Albumin Globulin Albumin/Globulin Ratio Triglycerides Cholesterol LDL Cholesterol, Calc HDL Cholesterol Cholesterol/HDL Ratio Vitamin B12 749 Procalcitonin TSH Free T4 Ur Collection Type Urine Color Urine Clarity Urine pH Ur Specific [place] Urine Protein Urine Glucose (UA) Urine Ketones Urine Blood Urine Nitrite Urine Bilirubin Urine Urobilinogen (Auto) Ur Leukocyte Esterase Urine RBC Urine WBC Ur Squamous Epith Cells Urine Bacteria Ur Culture Indicated? Urine Opiates Screen Urine Fentanyl Screen Ur Barbiturates Screen U Amphetamin/Meth Scrn U Benzodiazepines Scrn U Cocaine Metab Screen U Marijuana (THC) Screen Ethyl Alcohol RSV Rapid Negative Group A Strep Rapid Negative Misc Test Result Blood Type Antibody Screen Blood Bank Wristband ID Blood Bank Comment 01/08/25 05:07 WBC < 0.4 L* RBC 2.87 L Hgb 10.2 L Hct 29.8 L MCV 104 H MCH 35.5 H MCHC 34.2 RDW Std Deviation 47.8 H Plt Count 32 L D Neut % (Auto) 6 L Lymph % (Auto) 29 [place] % (Auto) 65 H Eos % (Auto) 0 Baso % (Auto) 0 Neut # (Auto) 0.0 L Lymph # (Auto) 0.1 L [place] # (Auto) 0.1 Eos # (Auto) 0.0 Baso # (Auto) 0.0 Immature Gran # (Auto) 0.00 Absolute Nucleated RBC 0.00 Immature Gran % 0 Nucleated RBC % 0 Smear Path Review PT INR Sodium 142 Potassium 3.6 Chloride 109 H Carbon Dioxide 23.9 Anion Gap 9 BUN 12 Creatinine 0.5 L Estim Creat Clear Calc 100.2 eGFR > 60 BUN/Creatinine Ratio 24 H Glucose 101 Calculated Osmolality 282 Lactic Acid Calcium 7.3 L Corrected Calcium 8.2 L Phosphorus 1.6 L Magnesium 1.6 Total Bilirubin 6.5 H AST 25 ALT 8 L Alkaline Phosphatase 119 H D Ammonia Troponin I B-Natriuretic Peptide Total Protein 5.7 Albumin 2.9 L Globulin 2.8 Albumin/Globulin Ratio 1.0 L Triglycerides 133 Cholesterol 126 L LDL Cholesterol, Calc 81 HDL Cholesterol 18 L Cholesterol/HDL Ratio 7.0 H Vitamin B12 Procalcitonin TSH 0.26 L Free T4 0.96 Ur Collection Type Urine Color Urine Clarity Urine pH Ur Specific [place] Urine Protein Urine Glucose (UA) Urine Ketones Urine Blood Urine Nitrite Urine Bilirubin Urine Urobilinogen (Auto) Ur Leukocyte Esterase Urine RBC Urine WBC Ur Squamous Epith Cells Urine Bacteria Ur Culture Indicated? Urine Opiates Screen Urine Fentanyl Screen Ur Barbiturates Screen U Amphetamin/Meth Scrn U Benzodiazepines Scrn U Cocaine Metab Screen U Marijuana (THC) Screen Ethyl Alcohol RSV Rapid Group A Strep Rapid Misc Test Result Blood Type Antibody Screen Blood Bank Wristband ID Blood Bank Comment ABG Interpretation ABG results: 01/07/25 10:14 VBG pH 7.57 VBG pCO2 30 L VBG pO2 100 H VBG Base Excess 5 H Assessment & Plan A&P Narrative neutropenic sepsis metastatic breast CA. prognosis per oncology she is only 59 yoa. that may play into the rx plan for her Time Spent With Patient Time: Total time spent is greater than 50% in coordination of care (as documented) at patient's floor/unit and/or counseling patient:
[2025-01-08 11:03] LABS: Slide Review Platelets confirmed
--- NOTE | 2025-01-08 11:42 | ESPR_ITS ---
<Statement entered by Palmer Ceron MD - 01/08/25 17:40> Patient was seen and examined by me personally. I agree with most of the assessment and plan as discussed with the internal salesperson physician, and my attending, Dr. Suarez. Changed from nystatin to fluconazole IV for severe thrush. Palmer Ceron MD, PGY-3 <Statement entered by Bhavin Castillo MD - 01/08/25 14:22> Patient was seen and examined at the bedside. No acute overnight events reported. Patient is currently on neutropenic precautions. 2 out of 2 blood cultures grew GNR. Awaiting urine cultures and MRSA screen. Given ultrasound abdomen concerning for acute cholecystitis and CBD dilation MRCP and surgery was consulted. Blood pressure was slightly elevated. WBC count remained less than 0.4 with ANC count around 0. Platelet count slightly improved after platelet pheresis. Hemoglobin stable at 10.2. ID specialist recommended to DC vancomycin and Flagyl given cultures growing GNR and recommended to continue cefepime for now. However we continue Flagyl due to concern for cholecystitis. Nystatin swish and swallow was added for concern of esophageal candidiasis. Urine output around 750 cc. 0.25 mg Dilaudid was added for pain management. Will likely closely monitor the patient and continue with current management. Patient is here for neutropenic fever, GNR bacteremia, lactic acidosis, UTI and acute cholecystitis. Likely will touch base with oncologist for administering filgrastim possibly. All labs and orders were reviewed. I saw and examined the patient, and I agree with current management stated by Dr Sierra MD,PGY1. Plan of care was discussed with the attending physician and resident physician. Disclaimer: Despite multiple revisions, due to the dictation software being used, the document bellow may not be free of grammatical errors including phonetic/typographic errors. However, this does not deter from our commitment to providing health care in the patient's best interest in mind. Dr. Jonathan MD, PGY 2 Documentation for date of: 01/08/25 Subjective Subjective Interval history: Initially gone for head CT this morning, which returned negative. When she returned, she was examined at bedside with family present. She endorses abdominal pain in right upper quadrant, which was tender to palpation on exam. Also endorses pain when swallowing, and oral thrush noted. As patient cannot tolerate p.o., will change medications to IV and consult dietary. Will also start dextrose fluids for nutrition in the meantime. Vitals significant for tachycardia, Tmax 99.6. Labs reviewed with drop in ANC, 24. Platelets with mild improvement to 32. CHEM panel shows hypophosphatemia and elevated T. bili 6.5. TSH low but free T4 within normal limits. Blood cultures GNR in 2 out of 2 bottles, urine culture pending. Will consult ID for further antibiotic recs. MRCP pending to evaluate for possible biliary infection. Will discuss case with oncology at [facility] for recs regarding Neupogen. Exam Vital Signs Temp Pulse Resp BP Pulse Ox O2 Del Method O2 Flow Rate 99.6 F 117 H 18 151/77 H 96 Nasal Cannula 2 01/08/25 08:00 01/08/25 08:00 01/08/25 08:00 01/08/25 08:00 01/08/25 08:00 01/08/25 08:00 01/08/25 08:00 Narrative Exam General: pleasant to speak with, AOx3, laying in bed, able to speak full sentences, appears acutely ill HEENT: poor dentition, oral thrush/white plaques noted in oral cavity, NC/AT, mucous membranes moist, bilateral sclera anicteric Cardiovascular: tachycardic, regular rhythm, S1/S2 present, no murmurs appreciated Pulmonary: clear to auscultation bilaterally, no rales/rhonchi/wheezes Abdominal: soft, TTP in RUQ with +Silva's sign, non-distended, no rebound/guarding, normal bowel sounds present Musculoskeletal: LUE edema, 0/5 strength in LUE, normal ROM Skin: warm and dry, intact, no rashes Objective Labs 01/08/25 05:07 01/08/25 05:07 Labs: Laboratory Results - last 24 hr 01/07/25 01/07/25 01/07/25 10:14 13:27 13:34 WBC < 0.4 L* D RBC 3.15 L Hgb 11.2 L D Hct 31.7 L MCV 101 H MCH 35.6 H MCHC 35.3 RDW Std Deviation 45.2 Plt Count 11 L* D Neut % (Auto) 20 L Lymph % (Auto) 40 [place] % (Auto) 40 H Eos % (Auto) 0 Baso % (Auto) 0 Neut # (Auto) 0.0 L Lymph # (Auto) 0.0 L [place] # (Auto) 0.0 Eos # (Auto) 0.0 Baso # (Auto) 0.0 Immature Gran # (Auto) 0.00 Absolute Nucleated RBC 0.00 Immature Gran % 0 Nucleated RBC % 0 Smear Path Review Sent to Pathologist PT 18.0 H D INR 1.7 H Sodium Potassium Chloride Carbon Dioxide Anion Gap BUN Creatinine Estim Creat Clear Calc eGFR BUN/Creatinine Ratio Glucose Calculated Osmolality Lactic Acid 2.1 H Calcium Corrected Calcium Phosphorus Magnesium Total Bilirubin AST ALT Alkaline Phosphatase Total Protein Albumin Globulin Albumin/Globulin Ratio Triglycerides Cholesterol LDL Cholesterol, Calc HDL Cholesterol Cholesterol/HDL Ratio Vitamin B12 TSH Free T4 Ur Collection Type Clean Catch Urine Color Drk-Yellow A Urine Clarity Clear Urine pH 6.0 Ur Specific [place] 1.030 Urine Protein Trace Urine Glucose (UA) Negative Urine Ketones 1+ A Urine Blood Negative Urine Nitrite Positive Urine Bilirubin 1+ A Urine Urobilinogen (Auto) 4.0 Ur Leukocyte Esterase Negative Urine RBC 3 Urine WBC 3 Ur Squamous Epith Cells < 1 Urine Bacteria 1+ A Ur Culture Indicated? Yes Urine Opiates Screen Positive A Urine Fentanyl Screen Positive A Ur Barbiturates Screen Negative U Amphetamin/Meth Scrn Negative U Benzodiazepines Scrn Negative U Cocaine Metab Screen Negative U Marijuana (THC) Screen Negative RSV Rapid Group A Strep Rapid Misc Test Result Platelets confirmed Blood Type O Positive Antibody Screen NEGATIVE Blood Bank Wristband ID Yes Blood Bank Comment PLATP Ready 01/07/25 01/07/25 01/07/25 19:19 20:00 22:34 WBC RBC Hgb Hct MCV MCH MCHC RDW Std Deviation Plt Count Neut % (Auto) Lymph % (Auto) [place] % (Auto) Eos % (Auto) Baso % (Auto) Neut # (Auto) Lymph # (Auto) [place] # (Auto) Eos # (Auto) Baso # (Auto) Immature Gran # (Auto) Absolute Nucleated RBC Immature Gran % Nucleated RBC % Smear Path Review PT INR Sodium Potassium Chloride Carbon Dioxide Anion Gap BUN Creatinine Estim Creat Clear Calc eGFR BUN/Creatinine Ratio Glucose Calculated Osmolality Lactic Acid 2.4 H 2.2 H Calcium Corrected Calcium Phosphorus 2.0 L Magnesium 1.4 L Total Bilirubin AST ALT Alkaline Phosphatase Total Protein Albumin Globulin Albumin/Globulin Ratio Triglycerides Cholesterol LDL Cholesterol, Calc HDL Cholesterol Cholesterol/HDL Ratio Vitamin B12 749 TSH Free T4 Ur Collection Type Urine Color Urine Clarity Urine pH Ur Specific [place] Urine Protein Urine Glucose (UA) Urine Ketones Urine Blood Urine Nitrite Urine Bilirubin Urine Urobilinogen (Auto) Ur Leukocyte Esterase Urine RBC Urine WBC Ur Squamous Epith Cells Urine Bacteria Ur Culture Indicated? Urine Opiates Screen Urine Fentanyl Screen Ur Barbiturates Screen U Amphetamin/Meth Scrn U Benzodiazepines Scrn U Cocaine Metab Screen U Marijuana (THC) Screen RSV Rapid Negative Group A Strep Rapid Negative Misc Test Result Blood Type Antibody Screen Blood Bank Wristband ID Blood Bank Comment 01/08/25 05:07 WBC < 0.4 L* RBC 2.87 L Hgb 10.2 L Hct 29.8 L MCV 104 H MCH 35.5 H MCHC 34.2 RDW Std Deviation 47.8 H Plt Count 32 L D Neut % (Auto) 6 L Lymph % (Auto) 29 [place] % (Auto) 65 H Eos % (Auto) 0 Baso % (Auto) 0 Neut # (Auto) 0.0 L Lymph # (Auto) 0.1 L [place] # (Auto) 0.1 Eos # (Auto) 0.0 Baso # (Auto) 0.0 Immature Gran # (Auto) 0.00 Absolute Nucleated RBC 0.00 Immature Gran % 0 Nucleated RBC % 0 Smear Path Review PT INR Sodium 142 Potassium 3.6 Chloride 109 H Carbon Dioxide 23.9 Anion Gap 9 BUN 12 Creatinine 0.5 L Estim Creat Clear Calc 100.2 eGFR > 60 BUN/Creatinine Ratio 24 H Glucose 101 Calculated Osmolality 282 Lactic Acid Calcium 7.3 L Corrected Calcium 8.2 L Phosphorus 1.6 L Magnesium 1.6 Total Bilirubin 6.5 H AST 25 ALT 8 L Alkaline Phosphatase 119 H D Total Protein 5.7 Albumin 2.9 L Globulin 2.8 Albumin/Globulin Ratio 1.0 L Triglycerides 133 Cholesterol 126 L LDL Cholesterol, Calc 81 HDL Cholesterol 18 L Cholesterol/HDL Ratio 7.0 H Vitamin B12 TSH 0.26 L Free T4 0.96 Ur Collection Type Urine Color Urine Clarity Urine pH Ur Specific [place] Urine Protein Urine Glucose (UA) Urine Ketones Urine Blood Urine Nitrite Urine Bilirubin Urine Urobilinogen (Auto) Ur Leukocyte Esterase Urine RBC Urine WBC Ur Squamous Epith Cells Urine Bacteria Ur Culture Indicated? Urine Opiates Screen Urine Fentanyl Screen Ur Barbiturates Screen U Amphetamin/Meth Scrn U Benzodiazepines Scrn U Cocaine Metab Screen U Marijuana (THC) Screen RSV Rapid Group A Strep Rapid Misc Test Result Platelets confirmed Blood Type Antibody Screen Blood Bank Wristband ID Blood Bank Comment ABG Interpretation ABG results: 01/07/25 10:14 VBG pH 7.57 VBG pCO2 30 L VBG pO2 100 H VBG Base Excess 5 H Quality Measures Quality Measures VTE prophylaxis (SCDs) and sepsis Current suspected stage: sepsis Possible source: pulmonary, GI tract/intra-abdominal, genitourinary, unknown and other (GNR bacteremia) Blood cultures ordered: completed in ED Antibiotic ordered: Yes Assessment & Plan Assessment Current Active Medications: Generic Name Dose Route Start Last Admin Trade Name Freq PRN Reason Stop Dose Admin Acetaminophen 650 mg 01/07/25 17:32 Acetaminophen 325 Mg Tablet PO 02/06/25 17:31 Q6H PRN PAIN 1-3 OR FEVER > 100.4 Hydromorphone HCl 0.25 mg 01/08/25 11:19 Hydromorphone Inj 2 Mg/Ml Vial IVP 01/13/25 11:18 Q6HR PRN PAIN SCALE 4-10(Mod-Sev Protocol Cefepime HCl 2 gm/ Sodium 50 mls @ 100 mls/hr 01/07/25 18:28 01/08/25 03:10 Chloride IV 01/14/25 18:27 100 mls/hr Q8H ERNESTO Administration Potassium Phosphate 22.5 mmol/ 507.5 mls @ 82.778 mls/hr 01/08/25 07:58 01/08/25 09:38 Sodium Chloride IV 01/08/25 14:05 82.778 mls/hr X1 ONE Administration Magnesium Sulfate 2 gm in 50 mls @ 25 mls/hr 01/08/25 11:00 Magnesium Sulfate Ivpb IV 01/08/25 12:59 X1 ONE Levetiracetam 1,000 mg 01/07/25 21:00 01/08/25 09:38 Levetiracetam Inj 100 Mg/Ml Vial 5ml IVP 02/06/25 20:59 1,000 mg Q12HR ERNESTO Administration Metoclopramide HCl 10 mg 01/07/25 17:32 Metoclopramide 5 Mg Tablet PO 02/06/25 17:31 Q6H PRN NAUSEA OR VOMITING Ondansetron HCl 4 mg 01/08/25 00:17 01/08/25 06:26 Ondansetron Inj 2 Mg/Ml Inj 2 Ml IV 02/07/25 00:16 4 mg Q6HR PRN Administration NAUSEA OR VOMITING Protocol Oxycodone HCl 5 mg 01/07/25 17:32 01/08/25 02:23 Oxycodone Hcl 5 Mg Ir Tab PO 01/12/25 17:31 5 mg Q6HR PRN Administration PAIN SCALE 4-10(Mod-Sev Pantoprazole Sodium 40 mg 01/08/25 09:00 01/08/25 09:38 Pantoprazole Inj 40 Mg Vial IVP 02/07/25 08:59 40 mg QDAY ERNESTO Administration Plan Lakshmi Salazar is a 59-year-old female with a past medical history of right-sided (ER/MO positive, HER2-low) breast cancer diagnosed 2012 s/p right-sided mastectomy with metastasis to brain, liver, lung, and bone who was admitted on 01/07 for management of neutropenic fever in setting of recent chemoradiation therapy. #Severe sepsis in setting of, #Neutropenic fever, secondary to cholecystitis vs PNA vs UTI vs GNR bacteremia, in setting of recent chemoradiation therapy #History of breast cancer status post chemoradiation therapy On initial presentation: ANC 80, Pro-Esequiel 4.2, LA 3, Tmax 101.9, tachycardia, tachypnea and hypotensive 78/54 WBC < 0.4, absolute neutrophil count 24. CXR: Extensive opacity on left UA + nitrates, 1+ bacteria Abdominal ultrasound concerning for acute cholecystitis with enlarged CBD => T. bili elevated; MRCP pending ? Blood culture: 2/2 bottles GNR ? Urine culture: pending ? ID consulted, appreciate recs: Continue cefepime ? Case discussed with patient's oncologist: Start filgrastim 300 mcg SC daily ? Will continue with cefepime 2 g every 8 hours ? Resume Flagyl 500 every 8 hours as patient has RUQ pain & + Silva's sign ? Will consider consulting general surgery for possible cholecystitis, however unsure if any intervention due to pancytopenia #Hyperbilirubinemia #Coagulopathy T. bili increased to 6.5, INR 1.7 ? Follow-up MRCP #Pancytopenia #Macrocytic anemia ? 2 units platelets transfused => mild increase in plt 32; Hgb 10.2; neutropenia as above ? B12 749. RBC folate pending ? Likely related to chemotherapy regimen ? Continue to monitor CBC #Mucositis in setting of chemotherapy #Failure to thrive #Severe oral thrush #Electrolyte abnormalities Patient has not eaten in 4 days due to difficulty/pain swelling => white patches noted in oral cavity ? Fluconazole, 400 mg loading followed by 200 mg daily starting 01/09 ? RD consulted, appreciate recs: Parenteral nutrition ? Due to severe pancytopenia, will defer PICC line/parenteral nutrition due to risk of bleed/fungal infection => will start with dextrose fluids and vitamins ? Repleted phosphorus, magnesium #Lactic acidosis Received 7 L IVF in ED. ? Continue to trend => downtrending #Left upper extremity swelling ? Doppler negative for DVT #Seizures ? Home Keppra 1000 mg twice daily #History of hypertension ? Hold home antihypertensives given low BP #Chronic pain, likely secondary to bone mets ? Oxycodone changed to IV Dilaudid 0.25 mg every 3 hours #Subclinical hyperthyroidism ? TSH 0.26, free T4 within normal limits ? Possibly in the setting of chemo => will advise patient to repeat thyroid panel in 4 to 6 weeks Hospital management: Disposition: Continued management of severe neutropenic fever, with multiple sources of infection; failure to thrive Fluids: D5-LR with vitamins Diet: Dysphagia 1; patient unable to tolerate p.o. due to thrush Lines: PIV DVT prophylaxis: SCDs GI prophylaxis: Pantoprazole IV [place]: Placed CODE STATUS: full code ----- Plan discussed with attending physician Dr. Suarez and senior resident physician Dr. Jonathan Esquivel MD PGY-1 Internal Medicine Attending Provider Attestation/Addendum I have discussed and was present for the essential components of the history, physical examination, diagnosis, and treatment plan with the resident. I agree with the patient's care as documented by the resident and amended herein by me. Regulo Suarez, DO. Patient seen and evaluated this AM. BP in the 150s overnight, patient tachycardic pulse 117 in the morning, SpO2 96% on room air. I's and O's 3750/750. Lactate is down trended to 2.2, significant labs include still an ill measurable WBC count, hemoglobin stable at 10, platelets uptrending to 32, sodium and potassium normal, BUN 12 and creatinine 0.5. T. bili elevated at 6.5, INR 1.7. Blood cultures are demonstrating GNR. Infectious disease has been consulted considering sepsis/neutropenic fever. Antibiotics have been changed to cefepime alone at this point per infectious disease however will continue Flagyl for suspected cholecystitis and will start fluconazole for moderate to severe oral candidiasis. We will also reach out to oncologist, Dr. Moreno to inquire about a G-CSF however this is not recommended per IDSA. MRCP was ordered and pending, will continue to monitor the patient closely and follow-up with cultures and imaging results. Although this document has been carefully reviewed, there may still be some phonetic and other typographical errors. These errors are purely grammatical due to imperfections in the software program and should not be construed in any way to compromise the substance of the patient's medical care during this visit.
--- NOTE | 2025-01-08 13:04 | ESCONSULT_ITS ---
RE: VINCENT ROLDAN : 1965 DATE OF CONSULTATION: 01/08/2025 REFERRING PHYSICIAN: Dr. Suarez. REASON FOR CONSULTATION: Bacteremia. HISTORY OF PRESENT ILLNESS: The patient is a 59-year-old admitted with fever and neutropenia. Her last chemo was about a week ago. She has known metastatic breast cancer with known metastatic disease in the chest, bones, and brain. She is on chemotherapy and her last dose was about a week ago. She has had a prior mastectomy on the right and the port placement on the right for chemo. Blood cultures were positive 1/2 per gram negative tonia, repeats are pending and ordered for tomorrow. SURGICAL HISTORY: Includes a prior brain tumor removal in 2013 before the diagnosis of breast cancer, it was apparently not breast cancer primary. She had a seizure at that time that led to the diagnosis of a brain tumor. She does seem to want all of this intervention. ALLERGIES: NONE KNOWN. IMMUNIZATIONS: Last tetanus is unknown. She does take flu shot mostly every year, but not this year. She has had COVID vaccine a couple of times and has had pneumococcal vaccination. FAMILY HISTORY: Unremarkable. SOCIAL HISTORY: Lives with sister and is a former user of marijuana, but stopped many years ago. There is no tobacco use. No alcohol use noted. PHYSICAL EXAMINATION: The patient is on oxygen, but just 1 to 2 liters per minute, so not very much of an oxygen requirement. She is in no distress. There is no cough and is known to have lung metastases. Exam is otherwise benign. Abdomen is benign. Extremities are unremarkable. Neurovascular exam is also benign . ASSESSMENT AND RECOMMENDATIONS: Gram negative sepsis. Generally we can avoid taking a line out of this setting unless repeat cultures are again positive for same germ. We will await the identification of susceptibilityof the germ on bc and I am going to stop the vancomycin and Flagyl for now because her abdomen is benign and check on her again on Monday. I did offer her a chance to say no to any treatment if she chooses, but apparently she has chosen not to do so already, so she favors aggressive therapy. She is only 59 years of age. I assume her children are busy working. cc: Madan Suarez DO DT: 11:05:48 TT: 11:38:00 Ref: [id number] - TID: [id number] [facility]
[2025-01-08] MEDS: Magnesium Sulfate 2 GM Ivpb 2 GM/50 ML BAG IV ×2 (13:12→23:03)
[2025-01-08] MEDS: HYDROmorphone INJ 2 MG/ML VIAL 0.25 MG IVP ×2 (13:12→22:03)
--- NOTE | 2025-01-08 13:51 | ESCONSULT_ITS ---
<Statement entered by Bienvenido Salinas MD - 01/10/25 09:09> pt seen with resident. all findings confirmed. see additional notes for details HPI Data of Consult Requesting Physician: Madan Suarez DO Admitting Provider: Madan Suarez DO Attending Provider: Madan Suarez DO Primary Care Provider: Klever Daniel MD Consult Narrative History of present illness: 59-year-old female with past medical history of breast cancer diagnosed status post right-sided mastectomy with metastatic disease to brain, liver, lung and bone, las chemotherapy one week ago who presented to the ED with generalized weakness, fever, decreased intake with odynophagia and oral ulcers. She denied any abdominal discomfort. On arrival was hypotensive, tachycardic and febrile. Chest x-ray showed parenchymal disease in the left hemithorax. BC growing gram neagtive René, infectious disease consilted for management of bacteremia. cc:: cc: Madan Suarez DO Exam Vital Signs Temp Pulse Resp BP Pulse Ox O2 Del Method O2 Flow Rate 97.6 F 109 H 20 134/72 H 95 Nasal Cannula 2 01/08/25 12:00 01/08/25 12:00 01/08/25 12:00 01/08/25 12:00 01/08/25 12:00 01/08/25 12:00 01/08/25 12:00 Results Labs 01/08/25 05:07 01/08/25 05:07 Labs: Short CBC 01/08/25 Range/Units 05:07 WBC < 0.4 L* (3.6-11.0) Thou/mm3 Hgb 10.2 L (12.0-16.0) g/dL Hct 29.8 L (36.0-46.0) % Plt Count 32 L D (140-440) Thou/mm3 BMP 01/08/25 05:07 Sodium 142 Potassium 3.6 Chloride 109 H Carbon Dioxide 23.9 BUN 12 Creatinine 0.5 L Glucose 101 Calcium 7.3 L Liver Function 01/08/25 Range/Units 05:07 Total Bilirubin 6.5 H (0.3-1.2) mg/dL AST 25 (0-34) U/L ALT 8 L (10-49) U/L Alkaline Phosphatase 119 H D (46-116) U/L Albumin 2.9 L (3.5-5.0) gm/dL Urine 01/07/25 Range/Units 13:27 Urine Color Drk-Yellow A (Lt Yel-Yel) Urine Clarity Clear (Clear/Hazy) Urine pH 6.0 (5.0-7.0) Ur Specific [place] 1.030 (1.001-1.035) Urine Protein Trace (Neg - Trace) Urine Glucose (UA) Negative (Negative) ABG Interpretation ABG results: 01/07/25 10:14 VBG pH 7.57 VBG pCO2 30 L VBG pO2 100 H VBG Base Excess 5 H Quality Measures Quality Measures sepsis Current suspected stage: sepsis Possible source: unknown Blood cultures ordered: completed in ED Antibiotic ordered: Yes Medications Home Medications and Allergies Home Medications ?Medication ?Instructions ?Recorded ?Confirmed ?Type calcium 600 mg (as 1 cap PO QDAY 01/07/1901/07 History carbonate)-vitamin D3 5 mcg (200 unit) capsule (Calcium 600 + D(3)) esomeprazole magnesium 40 mg 40 mg PO QDAY 01/07/19 History capsule,delayed release (Nexium) losartan 25 mg tablet 50 mg PO QDAY 01/07/1901/07 History gabapentin 300 mg capsule 300 mg PO QDAY 01/07/2512/21 History levetiracetam 500 mg tablet 1,000 mg PO Q12H 01/07/25 01/07/25 History ondansetron 8 mg disintegrating 8 mg PO Q8H PRN nausea and vomiting 01/07/25 01/07/25 History tablet oxycodone 5 mg tablet 5 mg PO Q6H 01/07/25 5 History Allergies Allergy/AdvReac Type Severity Reaction Status Date / Time No Known Allergies Allergy Verified 03/25/21 10:39 Visit Medications Acetaminophen (Acetaminophen 325 Mg Tablet) 650 mg PO Q6H PRN PRN Reason: PAIN 1-3 OR FEVER > 100.4 Stop: 02/06/25 17:31 Hydromorphone HCl (Hydromorphone Inj 2 Mg/Ml Vial) 0.25 mg IVP Q6HR PRN; Protocol PRN Reason: PAIN SCALE 4-10(Mod-Sev Stop: 01/13/25 11:18 Last Admin: 01/08/25 13:12 Dose: 0.25 mg Cefepime HCl 2 gm/ Sodium (Chloride) 50 mls @ 100 mls/hr IV Q8H [facility] Stop: 01/14/25 18:27 Last Admin: 01/08/25 12:21 Dose: 100 mls/hr Potassium Phosphate 22.5 mmol/ (Sodium Chloride) 507.5 mls @ 82.778 mls/hr IV X1 ONE Stop: 01/08/25 14:05 Last Admin: 01/08/25 09:38 Dose: 82.778 mls/hr Levetiracetam (Levetiracetam Inj 100 Mg/Ml Vial 5ml) 1,000 mg IVP Q12HR [facility] Stop: 02/06/25 20:59 Last Admin: 01/08/25 09:38 Dose: 1,000 mg Metoclopramide HCl (Metoclopramide 5 Mg Tablet) 10 mg PO Q6H PRN PRN Reason: NAUSEA OR VOMITING Stop: 02/06/25 17:31 Ondansetron HCl (Ondansetron Inj 2 Mg/Ml Inj 2 Ml) 4 mg IV Q6HR PRN; Protocol PRN Reason: NAUSEA OR VOMITING Stop: 02/07/25 00:16 Last Admin: 01/08/25 06:26 Dose: 4 mg Oxycodone HCl (Oxycodone Hcl 5 Mg Ir Tab) 5 mg PO Q6HR PRN PRN Reason: PAIN SCALE 4-10(Mod-Sev Stop: 01/12/25 17:31 Last Admin: 01/08/25 02:23 Dose: 5 mg Pantoprazole Sodium (Pantoprazole Inj 40 Mg Vial) 40 mg IVP QDAY [facility] Stop: 02/07/25 08:59 Last Admin: 01/08/25 09:38 Dose: 40 mg Discontinued Medications Sodium Chloride (Ns) 2,000 mls @ 150 mls/hr IV .[id number] ONE Stop: 01/07/25 22:56 Last Admin: 01/07/25 11:43 Dose: 150 mls/hr Piperacillin/Tazobactam/Dextrose (Zosyn) 3.375 gm in 50 mls @ 100 mls/hr IV X1 ONE Stop: 01/07/25 10:06 Last Infusion: 01/07/25 11:33 Dose: Infused Sodium Chloride (Ns) 1,000 mls @ 1,000 mls/hr IV .Q1H ONE Stop: 01/07/25 10:36 Last Infusion: 01/07/25 12:45 Dose: Infused Vancomycin/Sodium Chloride (Vancomycin/Ns 1 Gm Ivpb) 200 mls @ 120 mls/hr IV X1 ONE Stop: 01/07/25 13:13 Last Infusion: 01/07/25 13:35 Dose: Infused Sodium Chloride (Ns) 2,000 mls @ 999 mls/hr IV .Q2H1M ONE Stop: 01/07/25 13:37 Last Infusion: 01/07/25 14:25 Dose: Infused Piperacillin Sod/Tazobactam (Sod 4.5 gm/ Sodium Chloride) 100 mls @ 200 mls/hr IV Q6HR [facility]ST[facility] Stop: 01/14/25 17:59 Metronidazole (Flagyl 500 Mg Iv) 500 mg in 100 mls @ 200 mls/hr IV Q8HR [facility] Stop: 01/14/25 18:27 Last Admin: 01/08/25 06:22 Dose: 200 mls/hr Vancomycin/Sodium Chloride (Vancomycin/Ns 1 Gm Ivpb) 200 mls @ 120 mls/hr IV X1 ONE Stop: 01/08/25 00:39 Last Admin: 01/07/25 22:08 Dose: 120 mls/hr Vancomycin HCl/Dextrose (Vancomycin/D5w 1,250 Mg Ivpb) 250 mls @ 120 mls/hr IV Q12H ERNESTO; Protocol Stop: 01/15/25 09:59 Last Admin: 01/08/25 09:38 Dose: 120 mls/hr Magnesium Sulfate (Magnesium Sulfate Ivpb) 2 gm in 50 mls @ 25 mls/hr IV X1 ONE Stop: 01/08/25 09:58 Last Admin: 01/08/25 13:12 Dose: 25 mls/hr Magnesium Sulfate (Magnesium Sulfate Ivpb) 2 gm in 50 mls @ 25 mls/hr IV X1 ONE Stop: 01/08/25 12:59 Pharmacy Consult (Vancomycin Pharmacy To Dose 1 Each Each) 1 each IV QDAY ERNEST[facility] Stop: 02/06/25 17:59 Last Admin: 01/07/25 20:39 Dose: Not Given Potassium Chloride (Potassium Chloride 10% 20 Meq/15 Ml Udc) 20 meq PO X1 ONE Stop: 01/07/25 18:16 Last Admin: 01/07/25 21:24 Dose: 20 meq Assessment & Plan Plan 59-year-old female with past medical history of breast cancer diagnosed status post right-sided mastectomy with metastatic disease to brain, liver, lung and bone, las chemotherapy one week ago who presented to the ED with generalized weakness, fever, decreased intake with odynophagia and oral ulcers. She denied any abdominal discomfort. On arrival was hypotensive, tachycardic and febrile. Chest x-ray showed parenchymal disease in the left hemithorax. BC growing gram neagtive René, infectious disease consilted for management of bacteremia. #Severe sepsis due to #Gram negative rené bacteremia -Neutropenic patient after chemotherapy last week, WBC<.4 -Hypotensive on arrival, responded to fluids. -BC 2/2 bottles growing gram negative rods -Currently on cefepime, flagyl and vanc -Recommend stop flagyl and vanc continue cefepime, until organism result on BC Patient's care discussed with attending physician, Dr Brad Best MD PGY3
[2025-01-08] MEDS: THIAMINE INJ 100 MG/ML VIAL 2 ML IVP (18:40)
[2025-01-08] MEDS: FILGRASTIM INJ (ZARXIO) 300 MCG/0.5 ML SYRINGE SC (18:40)
--- NOTE | 2025-01-08 19:05 | PC.NURSE ---
Report received, pt on reverese isolation, abx to be administered along with magnesium, pt has two IV one to right and left limb alert to right ok to use per RN, do not access port a cath only for chemo. No current complaints at this time call light within reach and family at side.
--- NOTE | 2025-01-08 20:37 | PC.NURSE ---
Called spoke with Faby from pharmacy regarding magnesium order, if ok to low port with IVF D5LR with MVI ok per pharmacist.
--- NOTE | 2025-01-08 20:40 | PC.NURSE ---
Unabvle to pull magnesium from [facility], contacted pharmacy, clarify with MD if need to be administered still. Called Dr. Omkar bates to administer.
[2025-01-08] MEDS: FLUCONAZOLE/NS 400 MG IVPB 400 MG/200 ML BAG 100 MG IV (20:58)
[2025-01-09] VITALS (12 sets, daily range): BP systolic 108–159; BP diastolic 80–98; PULSE 75–110; RESP 16–27; TEMP 36.3–36.9; O2SAT 96–98
[2025-01-09] MEDS: CEFEPIME INJ 2 GM in SODIUM CHLORIDE 0.9% (Popper) 50 ML IV ×3 (03:16→17:43)
[2025-01-09] MEDS: metroNIDAZOLE/NS 500 MG IVPB 500 MG/100 ML BAG 200 MG IV ×3 (05:42→21:09)
[2025-01-09 06:18] LABS: Basophils % (Auto) 2 % (0-2.5); Eosinophils % (Auto) 0 % (0-10); Hemoglobin 10.7 g/dL (12.0-16.0); Immature Granulocytes % (Auto) 14 % (0-0); Immature Granulocytes Auto 0.09 Thou/mm3 (0.00-0.00); Lymphocytes # (Auto) 0.1 Thou/mm3 (1.0-4.8); Lymphocytes % (Auto) 13 % (10-50); Mean Corpuscular HGB Conc 35.7 g/dl (31.0-37.0); Mean Corpuscular Hemoglobin 35.8 pg (25.0-35.0); Mean Corpuscular Volume 100 fL (80-100); Monocytes # (Auto) 0.2 Thou/mm3 (0.0-0.8); Monocytes % (Auto) 33 % (0-12); Neutrophils # (Auto) 0.2 Thou/mm3 (1.8-7.7); Neutrophils % (Auto) 38 % (37-80); Nucleated Red Blood Cell % 0 /100 WBC (0); Red Blood Count 2.99 Miln/mm3 (4.00-5.20)
[2025-01-09 06:23] LABS: White Blood Count 0.6 Thou/mm3 (3.6-11.0)
[2025-01-09 06:24] LABS: Platelet Count 23 Thou/mm3 (140-440)
[2025-01-09 06:47] LABS: Alanine Aminotransferase 9 U/L (10-49); Albumin, Serum 2.7 gm/dL (3.5-5.0); Alkaline Phosphatase 103 U/L (46-116); Anion Gap 8 (7-16); Aspartate Amino Transferase 33 U/L (0-34); BUN/Creatinine Ratio 33 Ratio (12-20); Bilirubin,Total 4.4 mg/dL (0.3-1.2); Blood Urea Nitrogen 13 mg/dL (9-23); Calcium 7.3 mg/dL (8.3-10.6); Calcium (Corrected) 8.3 mg/dL (8.5-10.1); Carbon Dioxide 25.9 mMol/L (20.0-31.0); Chloride 110 mMol/L (98-107); Creatinine (Component) 0.4 mg/dL (0.6-1.3); Estimated Creatinine Clearance 129.4 mL/min (>60); Globulin 2.8 gm/dL (2.3-3.5); Glucose 150 mg/dL (74-106); Magnesium 2.7 mg/dL (1.6-2.6); Osmolality,Calculated 289 (275-295); Potassium 3.4 mMol/L (3.4-5.1); Sodium 144 mMol/L (136-145); Total Protein 5.5 gm/dL (5.7-8.2); eGFR > 60 See Note
[2025-01-09 07:05] LABS: Phosphorous 0.7 mg/dL (2.4-5.1)
[2025-01-09 07:32] LABS: Hepatitis C Antibody Non Reactive (Non React)
[2025-01-09 08:12] LABS: Slide Review Platelets confirmed
[2025-01-09] MEDS: THIAMINE INJ 100 MG/ML VIAL 2 ML IVP (08:24)
[2025-01-09] MEDS: PANTOPRAZOLE INJ 40 MG VIAL IVP (08:24)
[2025-01-09] MEDS: FILGRASTIM INJ (ZARXIO) 300 MCG/0.5 ML SYRINGE SC (08:25)
[2025-01-09] MEDS: levETIRAcetam INJ 100 MG/ML VIAL 5ML 1000 MG IVP ×2 (08:25→21:07)
[2025-01-09] MEDS: FLUCONAZOLE/NS 200 MG IVPB 200 MG/100 ML BAG 100 MG IV (08:26)
[2025-01-09] MEDS: POT PHOS 15 mMol in NS 250 ML 15 MMOL/250 ML BAG 62.5 MMOL IV ×2 (09:41→13:11)
[2025-01-09 12:29] LABS: HIV (1&2) Antibody Rapid Non-Reactive
--- NOTE | 2025-01-09 12:31 | ESPR_ITS ---
<Statement entered by Bhavin Castillo MD - 01/09/25 18:23> Patient was seen and examined at the bedside. No acute overnight events were reported. Blood cultures growing Klebsiella in 1 bottle. Repeat blood cultures are pending. Will continue with cefepime and Flagyl. MRCP showed edema around gallbladder wall. Urine cultures growing GNR. Will continue fluconazole for esophageal candidiasis. Vitals were stable. Platelet continues to remain low. Improvement in the white count slowly with Neupogen. Electrolytes were repleted. Will continue to monitor. ID is following the case. all labs and orders were reviewed. I saw and examined the patient, and I agree with current management stated by Dr Sierra MD,PGY1. Plan of care was discussed with the attending physician and resident physician. Disclaimer: Despite multiple revisions, due to the dictation software being used, the document bellow may not be free of grammatical errors including phonetic/typographic errors. However, this does not deter from our commitment to providing health care in the patient's best interest in mind. Dr. Jonathan MD, PGY 2 Documentation for date of: 01/09/25 Subjective Subjective Interval history: Lakshmi Salazar is a 59-year-old female with a past medical history of right-sided (ER/ID positive, HER2-low) breast cancer diagnosed 2012 s/p right-sided mastectomy with metastasis to brain, liver, lung, and bone who presented to the ED on 01/07 for generalized weakness and decreased PO intake and odynophagia in setting of oral ulcers. She does not endorse any abdominal pain, N/V/D but does say she has had fever, chills, and foul-smelling urine without dysuria. Of note, she had recently finished her last round of radiation therapy with Dr. Bradford and started on chemotherapy with Dr. Olmstead last week. During this time, it has been noted that patient has had increased swelling in her LUE as well as decreased function for the past three months. Patient admitted for further management of neutropenic fever in setting of recent chemoradiation therapy. 01/09: No acute overnight events noted. Seen and examined at bedside with family present. Patient states that she was able to drink some coffee without difficulty but still endorses pain in her oral cavity otherwise, does not endorse worsening shortness of breath, any fevers, chills, nausea, vomiting. Also spoke to family and informed them on current plans and clinical status. Exam Vital Signs Temp Pulse Resp BP Pulse Ox O2 Del Method O2 Flow Rate 98.0 F 102 H 18 108/80 97 Room Air 2 01/09/25 08:00 01/09/25 08:00 01/09/25 08:00 01/09/25 08:00 01/09/25 08:00 01/09/25 08:00 01/08/25 21:17 Narrative Exam General: pleasant to speak with, AOx3, laying in bed, able to speak full sentences, appears acutely ill HEENT: poor dentition, oral thrush/white plaques noted in oral cavity, NC/AT, mucous membranes moist, bilateral sclera anicteric Cardiovascular: tachycardic, regular rhythm, S1/S2 present, no murmurs appreciated Pulmonary: absent left-sided lung sounds, clear to auscultation on right Abdominal: soft, TTP in RUQ with +Silva's sign, non-distended, no rebound/guarding, normal bowel sounds present Musculoskeletal: LUE edema, 0/5 strength in LUE, normal ROM Skin: warm and dry, intact, no rashes Objective Labs 01/11/25 05:29 01/11/25 05:29 Labs: Laboratory Results - last 24 hr 01/09/25 05:05 WBC 0.6 L* D RBC 2.99 L Hgb 10.7 L Hct 30.0 L MCV 100 MCH 35.8 H MCHC 35.7 RDW Std Deviation 46.0 Plt Count 23 L* D Neut % (Auto) 38 Lymph % (Auto) 13 [place] % (Auto) 33 H Eos % (Auto) 0 Baso % (Auto) 2 Neut # (Auto) 0.2 L Lymph # (Auto) 0.1 L [place] # (Auto) 0.2 Eos # (Auto) 0.0 Baso # (Auto) 0.0 Immature Gran # (Auto) 0.09 H Absolute Nucleated RBC 0.00 Immature Gran % 14 H Nucleated RBC % 0 Sodium 144 Potassium 3.4 Chloride 110 H Carbon Dioxide 25.9 Anion Gap 8 BUN 13 Creatinine 0.4 L Estim Creat Clear Calc 129.4 eGFR > 60 BUN/Creatinine Ratio 33 H Glucose 150 H Calculated Osmolality 289 Calcium 7.3 L Corrected Calcium 8.3 L Phosphorus 0.7 L* Magnesium 2.7 H Total Bilirubin 4.4 H D AST 33 ALT 9 L Alkaline Phosphatase 103 Total Protein 5.5 L Albumin 2.7 L Globulin 2.8 Albumin/Globulin Ratio 1.0 L Hepatitis C Antibody Non Reactive HIV 1&2 Antibody Rapid Non-Reactive Misc Test Result Platelets confirmed ABG Interpretation ABG results: 01/07/25 10:14 VBG pH 7.57 VBG pCO2 30 L VBG pO2 100 H VBG Base Excess 5 H Quality Measures Quality Measures VTE prophylaxis (SCDs) and sepsis Current suspected stage: sepsis Possible source: pulmonary, GI tract/intra-abdominal, genitourinary, unknown and other (GNR bacteremia) Blood cultures ordered: completed in ED Antibiotic ordered: Yes Assessment & Plan Assessment Current Active Medications: Generic Name Dose Route Start Last Admin Trade Name Freq PRN Reason Stop Dose Admin Acetaminophen 650 mg 01/07/25 17:32 Acetaminophen 325 Mg Tablet PO 02/06/25 17:31 Q6H PRN PAIN 1-3 OR FEVER > 100.4 Filgrastim 300 mcg 01/08/25 15:00 01/09/25 08:25 Filgrastim Inj (Zarxio) 300 Mcg/0.5 Ml Syringe SC 01/15/25 14:59 300 mcg QDAY ERNESTO Administration Hydromorphone HCl 0.25 mg 01/08/25 15:17 01/08/25 22:03 Hydromorphone Inj 2 Mg/Ml Vial IVP 01/13/25 11:18 0.25 mg Q3HR PRN Administration PAIN SCALE 4-10(Mod-Sev Protocol Cefepime HCl 2 gm/ Sodium 50 mls @ 100 mls/hr 01/07/25 18:28 01/09/25 09:47 Chloride IV 01/14/25 18:27 100 mls/hr Q8H ERNESTO Administration Metronidazole 500 mg in 100 mls @ 200 mls/hr 01/08/25 14:22 01/09/25 05:42 Flagyl 500 Mg Iv IV 01/15/25 14:21 200 mls/hr Q8HR ERNESTO Administration Multivitamins/Minerals 10 ml/ 1,010 mls @ 75 mls/hr 01/08/25 15:30 01/09/25 05:51 Dextrose/Lactated Ringer's IV 02/07/25 15:29 75 mls/hr .[id number] ERNESTO Administration Fluconazole 200 mg in 100 mls @ 100 mls/hr 01/09/25 09:00 01/09/25 08:26 Diflucan/Ns Ivpb IV 01/16/25 08:59 100 mls/hr QDAY ERNESTO Administration Potassium Phosphate 15 mmol in 250 mls @ 62.5 mls/hr 01/09/25 08:25 01/09/25 09:41 Pot Phos 15 Mmol In Ns 250 Ml IV 01/09/25 16:24 62.5 mls/hr Q4H ERNESTO Administration Levetiracetam 1,000 mg 01/07/25 21:00 01/09/25 08:25 Levetiracetam Inj 100 Mg/Ml Vial 5ml IVP 02/06/25 20:59 1,000 mg Q12HR ERNESTO Administration Metoclopramide HCl 10 mg 01/07/25 17:32 Metoclopramide 5 Mg Tablet PO 02/06/25 17:31 Q6H PRN NAUSEA OR VOMITING Ondansetron HCl 4 mg 01/08/25 00:17 01/08/25 06:26 Ondansetron Inj 2 Mg/Ml Inj 2 Ml IV 02/07/25 00:16 4 mg Q6HR PRN Administration NAUSEA OR VOMITING Protocol Oxycodone HCl 5 mg 01/07/25 17:32 01/08/25 02:23 Oxycodone Hcl 5 Mg Ir Tab PO 01/12/25 17:31 5 mg Q6HR PRN Administration PAIN SCALE 4-10(Mod-Sev Pantoprazole Sodium 40 mg 01/08/25 09:00 01/09/25 08:24 Pantoprazole Inj 40 Mg Vial IVP 02/07/25 08:59 40 mg QDAY ERNESTO Administration Thiamine HCl 100 mg 01/08/25 15:00 01/09/25 08:24 Thiamine Inj 100 Mg/Ml Vial 2 Ml IVP 02/07/25 14:59 100 mg QDAY ERNESTO Administration Plan Lakshmi Salazar is a 59-year-old female with a past medical history of right-sided (ER/ID positive, HER2-low) breast cancer diagnosed 2012 s/p right-sided mastectomy with metastasis to brain, liver, lung, and bone who was admitted on 01/07 for management of neutropenic fever in setting of recent chemoradiation therapy. #Severe sepsis in setting of, #Neutropenic fever, secondary to cholecystitis vs PNA vs UTI vs GNR bacteremia, in setting of recent chemoradiation therapy #History of breast cancer status post chemoradiation therapy On initial presentation: ANC 80, Pro-Esequiel 4.2, LA 3, Tmax 101.9, tachycardia, tachypnea and hypotensive 78/54. WBC < 0.4 improved to 0.6, ANC improved from 24 to 312. CXR: Extensive opacity on left UA + nitrates, 1+ bacteria ? Blood culture: 2/2 bottles GNR ? Urine culture: pending ? ID consulted, appreciate recs: Continue cefepime 2 g q8hr ? Case discussed with patient's oncologist: Start filgrastim 300 mcg SC daily ? Resume Flagyl 500 every 8 hours as patient has RUQ pain & + Silva's sign ? Will consider consulting general surgery for possible cholecystitis, however unsure if any intervention due to pancytopenia #Hyperbilirubinemia, improving #Coagulopathy T. bili decreased from 6.5 to 4.4 Abdominal US: Concerning for acute cholecystitis with large CBD in setting of elevated T. bili. MRCP: thickened gallbladder wall and no CBD dilatation. She does endorse abdominal pain but given that T. bili has improved we will hold on consulting surgery for now. #Pancytopenia #Macrocytic anemia 2 units platelets transfused => mild increase in plt 32; Hgb 10.2; neutropenia as above B12 749. RBC folate pending ? Likely related to chemotherapy regimen ? Continue to monitor CBC #Mucositis in setting of chemotherapy #Failure to thrive #Severe oral thrush #Electrolyte abnormalities Has not eaten in 4 days due to difficulty/pain swelling => white patches noted in oral cavity ? Fluconazole 200 mg daily ? Maalox with lidocaine PO PCHS with goal of aiding in tolerating diet ? RD consulted, appreciate recs: Parenteral nutrition ? Due to severe pancytopenia, will defer PICC line/parenteral nutrition due to risk of bleed/fungal infection => will start with dextrose fluids and vitamins ? Repleted phosphorus and K #Lactic acidosis Received 7 L IVF in ED. ? Continue to trend => downtrending #Left upper extremity swelling ? Doppler negative for DVT #Seizures ? Home Keppra 1000 mg twice daily #History of hypertension ? Hold home antihypertensives given low BP #Chronic pain, likely secondary to bone mets ? Oxycodone changed to IV Dilaudid 0.25 mg every 3 hours #Subclinical hyperthyroidism TSH 0.26, free T4 within normal limits ? Possibly in the setting of chemo => will advise patient to repeat thyroid panel in 4 to 6 weeks Hospital management: Disposition: Continued management of severe neutropenic fever, with multiple sources of infection; failure to thrive Fluids: D5-LR with vitamins Diet: Dysphagia 1; patient unable to tolerate p.o. due to thrush Lines: PIV DVT prophylaxis: SCDs GI prophylaxis: Pantoprazole IV [place]: Placed CODE STATUS: full code ----- Plan discussed with attending physician Dr. Suarez and senior resident physician Dr. Jonathan Esquivel MD PGY-1 Internal Medicine Attending Provider Attestation/Addendum I have discussed and was present for the essential components of the history, physical examination, diagnosis, and treatment plan with the resident. I agree with the patient's care as documented by the resident and amended herein by me. Regulo Suarez DO. Although this document has been carefully reviewed, there may still be some phonetic and other typographical errors. These errors are purely grammatical due to imperfections in the software program and should not be construed in any way to compromise the substance of the patient's medical care during this visit.
--- NOTE | 2025-01-09 21:25 | PC.NURSE ---
patient educated on medication keppra through IV and other medication through PO, patient fixated on keppra being given PO but educated that this medication was giving through IV, while other medication PO was to help for oral thrush and not through IV, patient stated you are lying and that is not what you just said , insisted in calling family member, patient daughter JEANNE POPE made aware, stated if someone can stay at bedside for the night, night charge ASHBEY notified, charge nurse ok for family member stay.
[2025-01-10] VITALS (7 sets, daily range): BP systolic 140–159; BP diastolic 85–97; PULSE 62–110; RESP 24–27; TEMP 36.4–37.1; O2SAT 96–98; BMI 25.7
[2025-01-10] MEDS: CEFEPIME INJ 2 GM in SODIUM CHLORIDE 0.9% (Popper) 50 ML IV (01:58)
[2025-01-10 06:02] LABS: Basophils % (Auto) 0 % (0-2.5); Eosinophils % (Auto) 0 % (0-10); Hematocrit 30.9 % (36.0-46.0); Hemoglobin 10.6 g/dL (12.0-16.0); Immature Granulocytes % (Auto) 12 % (0-0); Immature Granulocytes Auto 0.55 Thou/mm3 (0.00-0.00); Lymphocytes # (Auto) 0.2 Thou/mm3 (1.0-4.8); Lymphocytes % (Auto) 3 % (10-50); Mean Corpuscular HGB Conc 34.3 g/dl (31.0-37.0); Mean Corpuscular Hemoglobin 35.1 pg (25.0-35.0); Mean Corpuscular Volume 102 fL (80-100); Monocytes # (Auto) 0.5 Thou/mm3 (0.0-0.8); Monocytes % (Auto) 11 % (0-12); Neutrophils # (Auto) 3.5 Thou/mm3 (1.8-7.7); Neutrophils % (Auto) 74 % (37-80); Nucleated Red Blood Cell # 0.11 Thou/mm3 (0.00-0.00); Nucleated Red Blood Cell % 2 /100 WBC (0); RDW Standard Deviation 47.8 fL (36.4-46.3); Red Blood Count 3.02 Miln/mm3 (4.00-5.20); White Blood Count 4.7 Thou/mm3 (3.6-11.0)
[2025-01-10] MEDS: metroNIDAZOLE/NS 500 MG IVPB 500 MG/100 ML BAG 200 MG IV (06:08)
[2025-01-10 07:00] LABS: Alanine Aminotransferase 7 U/L (10-49); Albumin, Serum 2.6 gm/dL (3.5-5.0); Alkaline Phosphatase 120 U/L (46-116); Anion Gap 10 (7-16); Aspartate Amino Transferase 28 U/L (0-34); BUN/Creatinine Ratio 28 Ratio (12-20); Bilirubin,Total 4.7 mg/dL (0.3-1.2); Blood Urea Nitrogen 11 mg/dL (9-23); Calcium 7.4 mg/dL (8.3-10.6); Calcium (Corrected) 8.5 mg/dL (8.5-10.1); Carbon Dioxide 27.1 mMol/L (20.0-31.0); Chloride 111 mMol/L (98-107); Creatinine (Component) 0.4 mg/dL (0.6-1.3); Globulin 2.7 gm/dL (2.3-3.5); Glucose 135 mg/dL (74-106); Magnesium 2.3 mg/dL (1.6-2.6); Osmolality,Calculated 295 (275-295); Potassium 3.3 mMol/L (3.4-5.1); Sodium 148 mMol/L (136-145); Total Protein 5.3 gm/dL (5.7-8.2); eGFR > 60 See Note
[2025-01-10 07:04] LABS: Phosphorous 0.6 mg/dL (2.4-5.1)
[2025-01-10 08:44] LABS: Path Review Blood Smear Sent to Pathologist
--- NOTE | 2025-01-10 09:18 | PC.SS ---
SS follow up note; Patient is on IV ABX.
--- NOTE | 2025-01-10 09:21 | ESPR_ITS ---
Subjective Subjective Interval history: on cefepime. bc with nearly jones s kleb. there seems to be a desire to cover the urine too although there is a decided lack of documented sx. Exam Vital Signs Temp Pulse Resp BP Pulse Ox O2 Del Method O2 Flow Rate 97.6 F 107 H 27 H 146/91 H 96 Nasal Cannula 2 01/10/25 08:00 01/10/25 08:00 01/10/25 08:00 01/10/25 08:00 01/10/25 08:00 01/10/25 08:00 01/10/25 08:00 Narrative Exam limited visit today. has large effusion that may be metastatic. drainage and cx of that seems prudent. Objective - Internal Medicine Labs 01/10/25 04:20 01/10/25 04:20 Labs: Laboratory Results - last 24 hr 01/09/25 01/10/25 05:05 04:20 WBC 4.7 D RBC 3.02 L Hgb 10.6 L Hct 30.9 L MCV 102 H MCH 35.1 H MCHC 34.3 RDW Std Deviation 47.8 H Neut % (Auto) 74 Lymph % (Auto) 3 L [place] % (Auto) 11 Eos % (Auto) 0 Baso % (Auto) 0 Neut # (Auto) 3.5 Lymph # (Auto) 0.2 L [place] # (Auto) 0.5 Eos # (Auto) 0.0 Baso # (Auto) 0.0 Immature Gran # (Auto) 0.55 H Absolute Nucleated RBC 0.11 H Immature Gran % 12 H Nucleated RBC % 2 H Smear Path Review Sent to Pathologist Sodium 148 H Potassium 3.3 L Chloride 111 H Carbon Dioxide 27.1 Anion Gap 10 BUN 11 Creatinine 0.4 L Estim Creat Clear Calc 135.0 eGFR > 60 BUN/Creatinine Ratio 28 H Glucose 135 H Calculated Osmolality 295 Calcium 7.4 L Corrected Calcium 8.5 Phosphorus 0.6 L* Magnesium 2.3 Total Bilirubin 4.7 H AST 28 ALT 7 L Alkaline Phosphatase 120 H Total Protein 5.3 L Albumin 2.6 L Globulin 2.7 Albumin/Globulin Ratio 1.0 L HIV 1&2 Antibody Rapid Non-Reactive ABG Interpretation ABG results: 01/07/25 10:14 VBG pH 7.57 VBG pCO2 30 L VBG pO2 100 H VBG Base Excess 5 H Assessment & Plan A&P Narrative neutropenic sepsis. bc with kleb metastatic breast CA. prognosis per oncology she is only 59 yoa. that may play into the rx plan for her bactrim ds 1 po bid for 7d ok. counts up. fever gone. Time Spent With Patient Time: Total time spent is greater than 50% in coordination of care (as documented) at patient's floor/unit and/or counseling patient:
[2025-01-10] MEDS: FLUCONAZOLE/NS 200 MG IVPB 200 MG/100 ML BAG 100 MG IV (09:26)
[2025-01-10] MEDS: POT PHOS 15 mMol in NS 250 ML 15 MMOL/250 ML BAG 62.5 MMOL IV ×2 (09:27→12:35)
[2025-01-10] MEDS: levETIRAcetam INJ 100 MG/ML VIAL 5ML 1000 MG IVP ×2 (09:27→21:19)
[2025-01-10] MEDS: FILGRASTIM INJ (ZARXIO) 300 MCG/0.5 ML SYRINGE SC (09:27)
[2025-01-10] MEDS: THIAMINE INJ 100 MG/ML VIAL 2 ML IVP (09:28)
[2025-01-10] MEDS: PANTOPRAZOLE INJ 40 MG VIAL IVP (09:28)
[2025-01-10] MEDS: PIPER/TAZO 3.375 GM PREMIX 3.375 GM/50 ML BAG IV (10:03)
[2025-01-10 10:09] LABS: Platelet Count 23 Thou/mm3 (140-440); Slide Review Platelets confirmed
--- NOTE | 2025-01-10 11:49 | PD.RESPRO ---
Documentation for date of: 01/10/25 Subjective Subjective Interval history: Lakshmi Salazar is a 59-year-old female with a past medical history of right-sided (ER/NH positive, HER2-low) breast cancer diagnosed 2012 s/p right-sided mastectomy with metastasis to brain, liver, lung, and bone who presented to the ED on 01/07 for generalized weakness and decreased PO intake and odynophagia in setting of oral ulcers. She does not endorse any abdominal pain, N/V/D but does say she has had fever, chills, and foul-smelling urine without dysuria. Of note, she had recently finished her last round of radiation therapy with Dr. Bradford and started on chemotherapy with Dr. Olmstead last week. During this time, it has been noted that patient has had increased swelling in her LUE as well as decreased function for the past three months. Patient admitted for further management of neutropenic fever in setting of recent chemoradiation therapy. 01/09: No acute overnight events noted. Seen and examined at bedside with family present. Patient states that she was able to drink some coffee without difficulty but still endorses pain in her oral cavity otherwise, does not endorse worsening shortness of breath, any fevers, chills, nausea, vomiting. Also spoke to family and informed them on current plans and clinical status. 01/10: Patient seen and examined at bedside this morning. No acute overnight events. Vitals, labs reviewed. Mildly tachycardic and SBP in 140s, but with patient without any acute complaints. States she occasionally does have some pain but it is of 3?4, and has not required any Dilaudid. Will resume p.o. oxycodone as she is increasing oral intake, as her oral thrush is improving. She states she has not slept and would like something for sleep tonight. Labs significant for increase in WBC, ANC 4402. Will give filgrastim for 1 more day. Urine culture returned ESBL, initially started on Zosyn, ID consulted appreciate recs. Platelets remain low, will continue to monitor. Electrolytes repleted. Family at bedside updated with plan. Exam Vital Signs Temp Pulse Resp BP Pulse Ox O2 Del Method O2 Flow Rate 97.6 F 107 H 27 H 146/91 H 96 Nasal Cannula 2 01/10/25 08:00 01/10/25 08:00 01/10/25 08:00 01/10/25 08:00 01/10/25 08:00 01/10/25 08:00 01/10/25 08:00 Narrative Exam General: pleasant to speak with, AOx3, laying in bed, able to speak full sentences, appears acutely ill HEENT: poor dentition, oral thrush/white plaques in oral cavity improving, NC/AT, mucous membranes moist, bilateral sclera anicteric Cardiovascular: tachycardic, regular rhythm, S1/S2 present, no murmurs appreciated Pulmonary: improved left-sided lung sounds, clear to auscultation on right Abdominal: soft, TTP in RUQ resolved, non-distended, no rebound/guarding, normal bowel sounds present Musculoskeletal: LUE edema, 0/5 strength in LUE, normal ROM Skin: warm and dry, intact, no rashes Objective Labs 01/11/25 05:29 01/11/25 05:29 Labs: Laboratory Results - last 24 hr 01/09/25 01/10/25 05:05 04:20 WBC 4.7 D RBC 3.02 L Hgb 10.6 L Hct 30.9 L MCV 102 H MCH 35.1 H MCHC 34.3 RDW Std Deviation 47.8 H Plt Count 23 L* Neut % (Auto) 74 Lymph % (Auto) 3 L [place] % (Auto) 11 Eos % (Auto) 0 Baso % (Auto) 0 Neut # (Auto) 3.5 Lymph # (Auto) 0.2 L [place] # (Auto) 0.5 Eos # (Auto) 0.0 Baso # (Auto) 0.0 Immature Gran # (Auto) 0.55 H Absolute Nucleated RBC 0.11 H Immature Gran % 12 H Nucleated RBC % 2 H Smear Path Review Sent to Pathologist Sodium 148 H Potassium 3.3 L Chloride 111 H Carbon Dioxide 27.1 Anion Gap 10 BUN 11 Creatinine 0.4 L Estim Creat Clear Calc 135.0 eGFR > 60 BUN/Creatinine Ratio 28 H Glucose 135 H Calculated Osmolality 295 Calcium 7.4 L Corrected Calcium 8.5 Phosphorus 0.6 L* Magnesium 2.3 Total Bilirubin 4.7 H AST 28 ALT 7 L Alkaline Phosphatase 120 H Total Protein 5.3 L Albumin 2.6 L Globulin 2.7 Albumin/Globulin Ratio 1.0 L HIV 1&2 Antibody Rapid Non-Reactive Misc Test Result Platelets confirmed ABG Interpretation ABG results: 01/07/25 10:14 VBG pH 7.57 VBG pCO2 30 L VBG pO2 100 H VBG Base Excess 5 H Quality Measures Quality Measures VTE prophylaxis (SCDs) and sepsis Current suspected stage: sepsis Possible source: pulmonary, GI tract/intra-abdominal, genitourinary, unknown and other (GNR bacteremia) Blood cultures ordered: completed in ED Antibiotic ordered: Yes Assessment & Plan Assessment Current Active Medications: Generic Name Dose Route Start Last Admin Trade Name Freq PRN Reason Stop Dose Admin Acetaminophen 650 mg 01/07/25 17:32 Acetaminophen 325 Mg Tablet PO 02/06/25 17:31 Q6H PRN PAIN 1-3 OR FEVER > 100.4 Al Hydrox/Mg Hydrox/ 0 ml 01/09/25 18:00 01/10/25 09:29 Simethicone 30 ml/ Lidocaine PO 02/08/25 17:59 30 ml HCl 15 ml PCHS ERNESTO Administration Filgrastim 300 mcg 01/08/25 15:00 01/10/25 09:27 Filgrastim Inj (Zarxio) 300 Mcg/0.5 Ml Syringe SC 01/15/25 14:59 300 mcg QDAY ERNESTO Administration Hydromorphone HCl 0.25 mg 01/08/25 15:17 01/08/25 22:03 Hydromorphone Inj 2 Mg/Ml Vial IVP 01/13/25 11:18 0.25 mg Q3HR PRN Administration PAIN SCALE 4-10(Mod-Sev Protocol Multivitamins/Minerals 10 ml/ 1,010 mls @ 75 mls/hr 01/08/25 15:30 01/10/25 09:30 Dextrose/Lactated Ringer's IV 02/07/25 15:29 75 mls/hr .[id number] ERNESTO Administration Potassium Phosphate 15 mmol in 250 mls @ 62.5 mls/hr 01/10/25 08:27 01/10/25 09:27 Pot Phos 15 Mmol In Ns 250 Ml IV 01/10/25 16:26 62.5 mls/hr Q4H ERNESTO Administration Levetiracetam 1,000 mg 01/07/25 21:00 01/10/25 09:27 Levetiracetam Inj 100 Mg/Ml Vial 5ml IVP 02/06/25 20:59 1,000 mg Q12HR ERNESTO Administration Melatonin 3 mg 01/10/25 21:00 Melatonin 3 Mg Tablet PO 02/09/25 20:59 HS [facility] Metoclopramide HCl 10 mg 01/07/25 17:32 Metoclopramide 5 Mg Tablet PO 02/06/25 17:31 Q6H PRN NAUSEA OR VOMITING Protocol Ondansetron HCl 4 mg 01/08/25 00:17 01/08/25 06:26 Ondansetron Inj 2 Mg/Ml Inj 2 Ml IV 02/07/25 00:16 4 mg Q6HR PRN Administration NAUSEA OR VOMITING Protocol Oxycodone HCl 5 mg 01/07/25 17:32 01/08/25 02:23 Oxycodone Hcl 5 Mg Ir Tab PO 01/12/25 17:31 5 mg Q6HR PRN Administration PAIN SCALE 4-10(Mod-Sev Thiamine HCl 100 mg 01/08/25 15:00 01/10/25 09:28 Thiamine Inj 100 Mg/Ml Vial 2 Ml IVP 02/07/25 14:59 100 mg QDAY ERNESTO Administration Trimethoprim/Sulfamethoxazole 1 tab 01/10/25 21:00 Trimethoprim/Sulfa 160/800 Ds Tablet PO 01/17/25 20:59 BID ERNESTO Dinorah Salazar is a 59-year-old female with a past medical history of right-sided (ER/NH positive, HER2-low) breast cancer diagnosed 2012 s/p right-sided mastectomy with metastasis to brain, liver, lung, and bone who was admitted on 01/07 for management of neutropenic fever in setting of recent chemoradiation therapy. #Severe sepsis in setting of, improving #Neutropenic fever, secondary to cholecystitis vs PNA vs UTI vs GNR bacteremia, in setting of recent chemoradiation therapy #History of breast cancer status post chemoradiation therapy On initial presentation: ANC 80, Pro-Esequiel 4.2, LA 3, Tmax 101.9, tachycardia, tachypnea and hypotensive 78/54. WBC 4.7, ANC 4402. CXR: Extensive opacity on left UA + nitrates, 1+ bacteria ? Blood culture: Klebsiella, with repeat cultures negative at 24 hours ? Urine culture: ESBL ? ID consulted, appreciate recs: Bactrim ? Case discussed with patient's oncologist: Start filgrastim 300 mcg SC daily => with improvement in ANC, will give filgrastim for 1 more day #Hyperbilirubinemia, improving #Coagulopathy T. bili 4.7 Abdominal US: Concerning for acute cholecystitis with large CBD in setting of elevated T. bili. MRCP: thickened gallbladder wall and no CBD dilatation. Initially patient had TTP in RUQ with positive Silva sign, today 01/10 there is no abdominal tenderness => will hold off on general surgery consult at this time and continue to monitor patient's symptoms/exam #Pancytopenia, WBC improving #Macrocytic anemia 2 units platelets transfused at admission => platelets 23, Hgb 10.6, MCV 102; improved leukocyte/ANC as above B12 749. RBC folate pending ? Likely related to chemotherapy regimen ? Continue to monitor CBC #Mucositis in setting of chemotherapy #Failure to thrive #Severe oral thrush #Electrolyte abnormalities Has not eaten in 4 days due to difficulty/pain swelling => white patches noted in oral cavity ? IV fluconazole 200 mg daily DC'ed with improvement in oral thrush; if patient's symptoms/plaques return will resume fluconazole ? Maalox with lidocaine PO PCHS with goal of aiding in tolerating diet ? RD consulted, appreciate recs: Parenteral nutrition ? Due to severe pancytopenia, will defer PICC line/parenteral nutrition due to risk of bleed/fungal infection => will start with dextrose fluids and vitamins ? Repleted phosphorus and K ? Sodium 148, will encourage patient to increase free water intake and monitor sodium. ? Albumin 2.6 #Lactic acidosis, improved Received 7 L IVF in ED. ? Continue to trend => downtrending #Left upper extremity swelling ? Doppler negative for DVT #Seizures ? Home Keppra 1000 mg twice daily #History of hypertension ? Hold home antihypertensives given low BP #Chronic pain, likely secondary to bone mets ? Oxycodone changed to IV Dilaudid 0.25 mg every 3 hours #Subclinical hyperthyroidism TSH 0.26, free T4 within normal limits ? Possibly in the setting of chemo => will advise patient to repeat thyroid panel in 4 to 6 weeks Hospital management: Disposition: Continued management of sepsis related to neutropenic fever, with multiple sources of infection; failure to thrive; ANC improving Fluids: D5-LR with vitamins Diet: Dysphagia 1; p.o. intake is increasing Lines: PIV DVT prophylaxis: SCDs GI prophylaxis: Pantoprazole IV [place]: Placed CODE STATUS: full code Patient seen and care discussed with my attending Dr. Suarez. Palmer Ceron MD PGY-3 Attending Provider Attestation/Addendum I have discussed and was present for the essential components of the history, physical examination, diagnosis, and treatment plan with the resident. I agree with the patient's care as documented by the resident and amended herein by me. Regulo Suarez, DO. Patient seen and evaluated this AM. Vital signs stable, patient afebrile overnight, no acute events overnight. WBCs 4.7, ANC 3.5 today, hemoglobin 10.6, sodium 148, potassium 3.3, T. bili 4.7. Patient did have some complaints of urinary urgency and some dysuria prior to coming in hence we will treat the patient's ESBL E. coli bacteriuria as well as Klebsiella bacteremia. Repeat blood cultures pending. The patient also had moderate or severe oral thrush, preventing her from eating approximately 4 to 5 days prior to admission, we did start the patient on fluconazole which was discontinued by infectious disease, I am not sure if infectious disease actually inspected the patient's mouth however we will continue this medication as she is improving on it. Will continue to monitor closely, cell counts are uptrending, will continue Bactrim per infectious disease recommendations for additional 7 days and discontinue filgrastim which was started at the recommendation of oncology. Will continue to monitor closely, we need to adhere with proper sleep hygiene as the patient has been very lethargic which I attribute to the fact she has not been sleeping at night. Will try melatonin conservatively for now however may need additional medication if it persists. Although this document has been carefully reviewed, there may still be some phonetic and other typographical errors. These errors are purely grammatical due to imperfections in the software program and should not be construed in any way to compromise the substance of the patient's medical care during this visit.
[2025-01-10] MEDS: MELATONIN 3 MG TABLET PO (21:17)
[2025-01-10] MEDS: TRIMETHOPRIM/SULFA 160/800 DS TABLET 1 TAB PO (21:17)
[2025-01-10] MEDS: MG HYD/AL HYD/SIME (Maalox Reg) SUSP 30 ML UDC 6 ML PO (21:18)
[2025-01-10] MEDS: LIDOCAINE VISCOUS 2% 15 ML UDC 4 ML PO (21:19)
[2025-01-11] VITALS (7 sets, daily range): BP systolic 124–155; BP diastolic 73–88; PULSE 91–109; RESP 20–30; TEMP 36.4–37.3; O2SAT 93–96; BMI 25.0
[2025-01-11 05:53] LABS: Basophils % (Auto) 0 % (0-2.5); Eosinophils % (Auto) 0 % (0-10); Hematocrit 31.2 % (36.0-46.0); Hemoglobin 10.7 g/dL (12.0-16.0); Immature Granulocytes % (Auto) 13 % (0-0); Immature Granulocytes Auto 2.07 Thou/mm3 (0.00-0.00); Lymphocytes # (Auto) 0.4 Thou/mm3 (1.0-4.8); Lymphocytes % (Auto) 2 % (10-50); Mean Corpuscular HGB Conc 34.3 g/dl (31.0-37.0); Mean Corpuscular Hemoglobin 34.7 pg (25.0-35.0); Mean Corpuscular Volume 101 fL (80-100); Monocytes # (Auto) 0.7 Thou/mm3 (0.0-0.8); Monocytes % (Auto) 5 % (0-12); Neutrophils # (Auto) 12.6 Thou/mm3 (1.8-7.7); Neutrophils % (Auto) 80 % (37-80); Nucleated Red Blood Cell # 0.52 Thou/mm3 (0.00-0.00); Nucleated Red Blood Cell % 3 /100 WBC (0); RDW Standard Deviation 49.5 fL (36.4-46.3); Red Blood Count 3.08 Miln/mm3 (4.00-5.20); White Blood Count 15.7 Thou/mm3 (3.6-11.0)
[2025-01-11 05:58] LABS: Platelet Count 30 Thou/mm3 (140-440)
[2025-01-11 06:17] LABS: Alanine Aminotransferase 10 U/L (10-49); Albumin, Serum 2.5 gm/dL (3.5-5.0); Albumin/Globulin Ratio 0.9 (1.2-2.2); Alkaline Phosphatase 166 U/L (46-116); Anion Gap 8 (7-16); Aspartate Amino Transferase 58 U/L (0-34); BUN/Creatinine Ratio 30 Ratio (12-20); Bilirubin,Total 3.6 mg/dL (0.3-1.2); Blood Urea Nitrogen 12 mg/dL (9-23); Calcium 7.2 mg/dL (8.3-10.6); Calcium (Corrected) 8.4 mg/dL (8.5-10.1); Carbon Dioxide 29.5 mMol/L (20.0-31.0); Chloride 113 mMol/L (98-107); Creatinine (Component) 0.4 mg/dL (0.6-1.3); Globulin 2.7 gm/dL (2.3-3.5); Glucose 147 mg/dL (74-106); Magnesium 2.2 mg/dL (1.6-2.6); Osmolality,Calculated 300 (275-295); Potassium 3.4 mMol/L (3.4-5.1); Sodium 150 mMol/L (136-145); Total Protein 5.2 gm/dL (5.7-8.2); eGFR > 60 See Note
[2025-01-11 06:24] LABS: Slide Review Platelets confirmed
[2025-01-11] MEDS: THIAMINE INJ 100 MG/ML VIAL 2 ML IVP (08:37)
[2025-01-11] MEDS: levETIRAcetam INJ 100 MG/ML VIAL 5ML 1000 MG IVP ×2 (08:37→22:20)
[2025-01-11] MEDS: POT PHOS 15 mMol in NS 250 ML 15 MMOL/250 ML BAG 62.5 MMOL IV ×2 (08:38→14:42)
--- NOTE | 2025-01-11 10:00 | PC.NURSE ---
Dr. PAVON made aware that patient's neuo status has changed. right pupil is slightly larger than the left and pt is not wanting to wake up, she is able to follow commands but is very lethargic. New orders for medication changes received. Family at bedside stated that yesterday she was more vocal and awake compare to today. Per Dr. Ceron the only change of medication was bactrim so medication was discontinued.
--- NOTE | 2025-01-11 10:27 | XR_ITS ---
Examination: AP chest single view Technique one AP portable semiupright chest single view Exam date and time: January 11, 2025 0938 hrs. Comparison January 07, 2025 Findings: Again noted extensive pleural parenchymal disease left hemithorax Right internal jugular Port-A-Cath tip right atrium Stable cardiac contour. Right lung clear Moderate osteopenia Impression: Again noted extensive pleural parenchymal disease left hemithorax, consider CT chest post intravenous contrast follow-up
[2025-01-11] MEDS: FLUCONAZOLE/NS 200 MG IVPB 200 MG/100 ML BAG 100 MG IV (10:52)
[2025-01-11] MEDS: RINGERS LACTATED 1000 ML 500 ML 150 ML IV (10:56)
--- NOTE | 2025-01-11 12:44 | PD.RESPRO ---
Documentation for date of: 01/11/25 Subjective Subjective Interval history: Lakshmi Salazar is a 59-year-old female with a past medical history of right-sided (ER/TX positive, HER2-low) breast cancer diagnosed 2012 s/p right-sided mastectomy with metastasis to brain, liver, lung, and bone who presented to the ED on 01/07 for generalized weakness and decreased PO intake and odynophagia in setting of oral ulcers. She does not endorse any abdominal pain, N/V/D but does say she has had fever, chills, and foul-smelling urine without dysuria. Of note, she had recently finished her last round of radiation therapy with Dr. Bradford and started on chemotherapy with Dr. Olmstead last week. During this time, it has been noted that patient has had increased swelling in her LUE as well as decreased function for the past three months. Patient admitted for further management of neutropenic fever in setting of recent chemoradiation therapy. 01/09: No acute overnight events noted. Seen and examined at bedside with family present. Patient states that she was able to drink some coffee without difficulty but still endorses pain in her oral cavity otherwise, does not endorse worsening shortness of breath, any fevers, chills, nausea, vomiting. Also spoke to family and informed them on current plans and clinical status. 01/10: Patient seen and examined at bedside this morning. No acute overnight events. Vitals, labs reviewed. Mildly tachycardic and SBP in 140s, but with patient without any acute complaints. States she occasionally does have some pain but it is of 3?4, and has not required any Dilaudid. Will resume p.o. oxycodone as she is increasing oral intake, as her oral thrush is improving. She states she has not slept and would like something for sleep tonight. Labs significant for increase in WBC, ANC 4402. Will give filgrastim for 1 more day. Urine culture returned ESBL, initially started on Zosyn, ID consulted appreciate recs. Platelets remain low, will continue to monitor. Electrolytes repleted. Family at bedside updated with plan. 01/11: No acute overnight events noted. Seen and examined at bedside in telemetry. Upon evaluation, patient appeared to be more more lethargic compared to prior and was not able to answer questions regarding orientation. Per nursing staff, mentation started to decline on 01/10 from p.m. onwards. Patient eyes are open to pain but was able to localize. She has not been able to sleep for the last couple of days and will start trazodone at bedtime. Exam Vital Signs Temp Pulse Resp BP Pulse Ox O2 Del Method O2 Flow Rate 98.2 F 95 26 H 129/88 H 95 Nasal Cannula 3 01/11/25 11:56 01/11/25 11:56 01/11/25 11:56 01/11/25 11:56 01/11/25 11:56 01/11/25 11:56 01/11/25 11:56 Narrative Exam General: Somnolent, answering some questions but unintelligible speech, localized to pain but did not open eyes HEENT: poor dentition, oral thrush/white plaques in oral cavity improving, NC/AT, mucous membranes moist, bilateral sclera anicteric Cardiovascular: tachycardic, regular rhythm, S1/S2 present, no murmurs appreciated Pulmonary: improved left-sided lung sounds, clear to auscultation on right Abdominal: soft, TTP in RUQ resolved, non-distended, no rebound/guarding, normal bowel sounds present Musculoskeletal: LUE edema, 0/5 strength in LUE, normal ROM Skin: warm and dry, intact, no rashes Objective Labs 01/11/25 05:29 01/11/25 05:29 Labs: Laboratory Results - last 24 hr 01/11/25 05:29 WBC 15.7 H D RBC 3.08 L Hgb 10.7 L Hct 31.2 L MCV 101 H MCH 34.7 MCHC 34.3 RDW Std Deviation 49.5 H Plt Count 30 L D Neut % (Auto) 80 Lymph % (Auto) 2 L [place] % (Auto) 5 Eos % (Auto) 0 Baso % (Auto) 0 Neut # (Auto) 12.6 H Lymph # (Auto) 0.4 L [place] # (Auto) 0.7 Eos # (Auto) 0.0 Baso # (Auto) 0.0 Immature Gran # (Auto) 2.07 H Absolute Nucleated RBC 0.52 H Immature Gran % 13 H Nucleated RBC % 3 H Sodium 150 H Potassium 3.4 Chloride 113 H Carbon Dioxide 29.5 Anion Gap 8 BUN 12 Creatinine 0.4 L Estim Creat Clear Calc 135.0 eGFR > 60 BUN/Creatinine Ratio 30 H Glucose 147 H Calculated Osmolality 300 H Calcium 7.2 L Corrected Calcium 8.4 L Phosphorus 1.0 L Magnesium 2.2 Total Bilirubin 3.6 H D AST 58 H ALT 10 Alkaline Phosphatase 166 H D Total Protein 5.2 L Albumin 2.5 L Globulin 2.7 Albumin/Globulin Ratio 0.9 L Misc Test Result Platelets confirmed ABG Interpretation ABG results: 01/07/25 10:14 VBG pH 7.57 VBG pCO2 30 L VBG pO2 100 H VBG Base Excess 5 H Quality Measures Quality Measures VTE prophylaxis (SCDs) and sepsis Current suspected stage: ruled out Possible source: pulmonary, GI tract/intra-abdominal, genitourinary, unknown and other (GNR bacteremia) Blood cultures ordered: completed in ED Antibiotic ordered: Yes Assessment & Plan Assessment Current Active Medications: Generic Name Dose Route Start Last Admin Trade Name Freq PRN Reason Stop Dose Admin Acetaminophen 650 mg 01/07/25 17:32 Acetaminophen 325 Mg Tablet PO 02/06/25 17:31 Q6H PRN PAIN 1-3 OR FEVER > 100.4 Al Hydrox/Mg Hydrox/Simethicone 6 ml 01/10/25 18:00 01/11/25 08:54 Mg Hyd/Al Hyd/Matt (Maalox Reg) Susp 30 Ml Udc PO 02/09/25 17:59 Not Given PCHS ERNESTO Hydromorphone HCl 0.25 mg 01/08/25 15:17 01/08/25 22:03 Hydromorphone Inj 2 Mg/Ml Vial IVP 01/13/25 11:18 0.25 mg Q3HR PRN Administration PAIN SCALE 4-10(Mod-Sev Protocol Multivitamins/Minerals 10 ml/ 1,010 mls @ 75 mls/hr 01/11/25 09:00 01/11/25 10:29 Dextrose IV 02/10/25 08:59 75 mls/hr .[id number] ERNESTO Administration Fluconazole 200 mg in 100 mls @ 100 mls/hr 01/11/25 10:07 01/11/25 10:52 Diflucan/Ns Ivpb IV 01/18/25 10:06 100 mls/hr QDAY ERNESTO Administration Potassium Phosphate 15 mmol in 250 mls @ 62.5 mls/hr 01/11/25 12:00 Pot Phos 15 Mmol In Ns 250 Ml IV 01/11/25 15:59 X1 ONE Lactated Ringer's 500 mls @ 150 mls/hr 01/11/25 10:49 01/11/25 10:56 Lactated Ringers IV 01/11/25 14:08 150 mls/hr .Q3H20M ONE Administration Levetiracetam 1,000 mg 01/07/25 21:00 01/11/25 08:37 Levetiracetam Inj 100 Mg/Ml Vial 5ml IVP 02/06/25 20:59 1,000 mg Q12HR ERNESTO Administration Lidocaine HCl 4 ml 01/10/25 18:00 01/11/25 08:54 Lidocaine Viscous 2% 15 Ml Udc PO 02/09/25 17:59 Not Given PC ERNESTO Melatonin 3 mg 01/10/25 21:00 01/10/25 21:17 Melatonin 3 Mg Tablet PO 02/09/25 20:59 3 mg HS ERNESTO Administration Metoclopramide HCl 10 mg 01/07/25 17:32 Metoclopramide 5 Mg Tablet PO 02/06/25 17:31 Q6H PRN NAUSEA OR VOMITING Protocol Ondansetron HCl 4 mg 01/08/25 00:17 01/08/25 06:26 Ondansetron Inj 2 Mg/Ml Inj 2 Ml IV 02/07/25 00:16 4 mg Q6HR PRN Administration NAUSEA OR VOMITING Protocol Oxycodone HCl 5 mg 01/07/25 17:32 01/08/25 02:23 Oxycodone Hcl 5 Mg Ir Tab PO 01/12/25 17:31 5 mg Q6HR PRN Administration PAIN SCALE 4-10(Mod-Sev Thiamine HCl 100 mg 01/08/25 15:00 01/11/25 08:37 Thiamine Inj 100 Mg/Ml Vial 2 Ml IVP 02/07/25 14:59 100 mg QDAY ERNETSO Administration Trazodone HCl 50 mg 01/11/25 21:00 Trazodone Hcl 50 Mg Tablet PO 02/10/25 20:59 HS ERNESTO Trimethoprim/Sulfamethoxazole 1 tab 01/10/25 21:00 01/11/25 08:55 Trimethoprim/Sulfa 160/800 Ds Tablet PO 01/17/25 20:[address] [facility] Dinorah Salazar is a 59-year-old female with a past medical history of right-sided (ER/TX positive, HER2-low) breast cancer diagnosed 2012 s/p right-sided mastectomy with metastasis to brain, liver, lung, and bone who was admitted on 01/07 for management of neutropenic fever in setting of recent chemoradiation therapy. #Severe sepsis in setting of neutropenic fever, resolved #? Cholecystitis vs PNA vs UTI vs GNR bacteremia #History of breast cancer status post chemoradiation therapy On presentation: ANC 80, Pro-Esequiel 4.2, LA 3, Tmax 101.9, tachycardia, tachypnea and hypotensive 78/54. WBC uptrending from 4.7 to 15.7. Repeat CXR continues to showed extensive left-sided opacity. ? Blood culture 01/07: Klebsiella in 2/2 bottles, with repeat cultures negative at 24 hours ? Blood culture 01/09: NGTD ? Urine culture 01/07: ESBL E. coli ? ID consulted, appreciate recs: Bactrim ? Case discussed with patient's oncologist: filgrastim 300 mcg SC daily (01/08-01/10) #Hyperbilirubinemia, improving #Coagulopathy Abdominal US: Concerning for acute cholecystitis with large CBD in setting of elevated T. bili. MRCP: thickened gallbladder wall and no CBD dilatation. Initially had TTP in RUQ with positive Silva sign, 01/10 no abdominal tenderness => will hold off on general surgery consult at this time and continue to monitor patient's symptoms/exam. #Pancytopenia #Macrocytic anemia 2 units platelets transfused at admission => platelets 23, Hgb 10.6, MCV 102; improved leukocyte/ANC as above B12 749. RBC folate pending. ? Continue to monitor CBC #Mucositis in setting of chemotherapy #Oral thrush ? Given symptoms and plaques remain, resumed fluconazole 200 mg IV daily ? Maalox with lidocaine PO PCHS with goal of aiding in tolerating diet ? RD recommends parenteral nutrition -> due to severe pancytopenia, will defer PICC line/parenteral nutrition due to risk of bleed/fungal infection => will start with dextrose fluids and vitamins #Failure to thrive #Electrolyte abnormalities #Hyperosmolar hypernatremia #Hypophosphatemia ? K and Phos repleted with total of 30 mmol ? 500 cc of LR at 150 mL/h x1 #Lactic acidosis, improved Received 7 L IVF in ED. ? Continue to trend => downtrending #Left upper extremity swelling ? Doppler negative for DVT #Seizures ? Home Keppra 1000 mg twice daily #History of hypertension ? Hold home antihypertensives given low BP #Chronic pain, likely secondary to bone mets ? Oxycodone changed to IV Dilaudid 0.25 mg every 3 hours #Subclinical hyperthyroidism TSH 0.26, free T4 within normal limits ? Possibly in the setting of chemo => will advise patient to repeat thyroid panel in 4 to 6 weeks Hospital management: Disposition: Continued management of sepsis related to neutropenic fever, with multiple sources of infection; failure to thrive; ANC improving Fluids: D5-LR with vitamins Diet: Dysphagia 1; p.o. intake is increasing Lines: PIV DVT prophylaxis: SCDs GI prophylaxis: Pantoprazole IV [place]: Placed CODE STATUS: full code ----- Plan discussed with attending physician Dr. Erick Esquivel MD PGY-1 Internal Medicine Attending Provider Attestation/Addendum I have discussed and was present for the essential components of the history, physical examination, diagnosis, and treatment plan with the resident. I agree with the patient's care as documented by the resident and amended herein by me. Regulo Suarez DO. Patient seen and evaluated this AM. No acute events overnight, patient more somnolent in the a.m., I do not believe she is sleeping well overnight. Melatonin given last night however do not think it was effective. Vital signs stable, patient afebrile overnight. Significant labs include an uptrending WBC to 15.7, hemoglobin 10.7, platelet count 30, sodium 130, chloride 113, potassium 3.4 and ANC 12.6. Will gastrum has been discontinued. Will continue the patient on Bactrim for 7 days per infectious disease recommendations and also going to continue fluconazole as the patient's oral thrush is significantly improved and the patient is now tolerating some p.o. intake which she was not on admission. Chest x-ray also ordered for today, repeat blood cultures demonstrating NGTD. Continue to monitor closely while she is here Although this document has been carefully reviewed, there may still be some phonetic and other typographical errors. These errors are purely grammatical due to imperfections in the software program and should not be construed in any way to compromise the substance of the patient's medical care during this visit.
[2025-01-11] MEDS: TRIMETHOPRIM/SULFA 160/800 DS TABLET 1 TAB PO (22:24)
[2025-01-12] VITALS (10 sets, daily range): BP systolic 122–148; BP diastolic 77–91; PULSE 94–117; RESP 20–29; TEMP 36.5–37.6; O2SAT 94–96; BMI 25.0
[2025-01-12 06:16] LABS: Basophils % (Auto) 0 % (0-2.5); Eosinophils % (Auto) 0 % (0-10); Hematocrit 31.1 % (36.0-46.0); Hemoglobin 10.6 g/dL (12.0-16.0); Immature Granulocytes % (Auto) 12 % (0-0); Immature Granulocytes Auto 1.96 Thou/mm3 (0.00-0.00); Lymphocytes # (Auto) 0.5 Thou/mm3 (1.0-4.8); Lymphocytes % (Auto) 3 % (10-50); Mean Corpuscular HGB Conc 34.1 g/dl (31.0-37.0); Mean Corpuscular Volume 103 fL (80-100); Monocytes # (Auto) 0.9 Thou/mm3 (0.0-0.8); Monocytes % (Auto) 6 % (0-12); Neutrophils # (Auto) 12.6 Thou/mm3 (1.8-7.7); Neutrophils % (Auto) 79 % (37-80); Nucleated Red Blood Cell # 0.55 Thou/mm3 (0.00-0.00); Nucleated Red Blood Cell % 4 /100 WBC (0); RDW Standard Deviation 51.8 fL (36.4-46.3); Red Blood Count 3.03 Miln/mm3 (4.00-5.20); White Blood Count 15.9 Thou/mm3 (3.6-11.0)
[2025-01-12 06:17] LABS: Platelet Count 27 Thou/mm3 (140-440)
[2025-01-12 06:18] LABS: Slide Review Platelets confirmed
[2025-01-12 07:02] LABS: Alanine Aminotransferase 7 U/L (10-49); Albumin, Serum 2.4 gm/dL (3.5-5.0); Albumin/Globulin Ratio 0.9 (1.2-2.2); Alkaline Phosphatase 208 U/L (46-116); Anion Gap 5 (7-16); Aspartate Amino Transferase 58 U/L (0-34); BUN/Creatinine Ratio 33 Ratio (12-20); Bilirubin,Total 2.7 mg/dL (0.3-1.2); Blood Urea Nitrogen 13 mg/dL (9-23); Calcium 6.9 mg/dL (8.3-10.6); Calcium (Corrected) 8.2 mg/dL (8.5-10.1); Carbon Dioxide 27.9 mMol/L (20.0-31.0); Chloride 112 mMol/L (98-107); Creatinine (Component) 0.4 mg/dL (0.6-1.3); Estimated Creatinine Clearance 133.2 mL/min (>60); Globulin 2.6 gm/dL (2.3-3.5); Glucose 138 mg/dL (74-106); Osmolality,Calculated 290 (275-295); Phosphorous 1.4 mg/dL (2.4-5.1); Potassium 3.5 mMol/L (3.4-5.1); Sodium 145 mMol/L (136-145); eGFR > 60 See Note
[2025-01-12] MEDS: levETIRAcetam INJ 100 MG/ML VIAL 5ML 1000 MG IVP ×2 (08:41→20:49)
[2025-01-12] MEDS: THIAMINE INJ 100 MG/ML VIAL 2 ML IVP (08:42)
[2025-01-12] MEDS: TRIMETHOPRIM/SULFA 160/800 DS TABLET 1 TAB PO ×2 (08:42→20:51)
[2025-01-12] MEDS: RINGERS LACTATED 1000 ML 1,000 ML 999 ML IV (11:07)
[2025-01-12] MEDS: POT PHOS 15 mMol in NS 250 ML 15 MMOL/250 ML BAG 62.5 MMOL IV ×2 (12:07→16:03)
[2025-01-12] MEDS: FLUCONAZOLE/NS 200 MG IVPB 200 MG/100 ML BAG 100 MG IV (12:07)
--- NOTE | 2025-01-12 13:05 | PD.RESPRO ---
Documentation for date of: 01/12/25 Exam Vital Signs Temp Pulse Resp BP Pulse Ox O2 Del Method O2 Flow Rate 99.6 F 112 H 29 H 122/84 94 L Nasal Cannula 2 01/12/25 08:00 01/12/25 08:00 01/12/25 08:00 01/12/25 08:00 01/12/25 08:00 01/12/25 08:00 01/12/25 08:00 Objective Labs 01/12/25 04:40 01/12/25 04:40 Labs: Laboratory Results - last 24 hr 01/12/25 04:40 WBC 15.9 H RBC 3.03 L Hgb 10.6 L Hct 31.1 L MCV 103 H MCH 35.0 MCHC 34.1 RDW Std Deviation 51.8 H Plt Count 27 L* Neut % (Auto) 79 Lymph % (Auto) 3 L [place] % (Auto) 6 Eos % (Auto) 0 Baso % (Auto) 0 Neut # (Auto) 12.6 H Lymph # (Auto) 0.5 L [place] # (Auto) 0.9 H Eos # (Auto) 0.0 Baso # (Auto) 0.0 Immature Gran # (Auto) 1.96 H Absolute Nucleated RBC 0.55 H Immature Gran % 12 H Nucleated RBC % 4 H Sodium 145 Potassium 3.5 Chloride 112 H Carbon Dioxide 27.9 Anion Gap 5 L BUN 13 Creatinine 0.4 L Estim Creat Clear Calc 133.2 eGFR > 60 BUN/Creatinine Ratio 33 H Glucose 138 H Calculated Osmolality 290 Calcium 6.9 L Corrected Calcium 8.2 L Phosphorus 1.4 L Magnesium 2.0 Total Bilirubin 2.7 H D AST 58 H ALT 7 L Alkaline Phosphatase 208 H D Total Protein 5.0 L Albumin 2.4 L Globulin 2.6 Albumin/Globulin Ratio 0.9 L Misc Test Result Platelets confirmed ABG Interpretation ABG results: 01/07/25 10:14 VBG pH 7.57 VBG pCO2 30 L VBG pO2 100 H VBG Base Excess 5 H Quality Measures Quality Measures VTE prophylaxis (SCDs) and sepsis Possible source: pulmonary, GI tract/intra-abdominal, genitourinary, unknown and other (GNR bacteremia) Blood cultures ordered: completed in ED Assessment & Plan Assessment Current Active Medications: Generic Name Dose Route Start Last Admin Trade Name Freq PRN Reason Stop Dose Admin Acetaminophen 650 mg 01/07/25 17:32 Acetaminophen 325 Mg Tablet PO 02/06/25 17:31 Q6H PRN PAIN 1-3 OR FEVER > 100.4 Al Hydrox/Mg Hydrox/Simethicone 6 ml 01/10/25 18:00 01/12/25 12:21 Mg Hyd/Al Hyd/Matt (Maalox Reg) Susp 30 Ml Udc PO 02/09/25 17:59 Not Given PCHS ERNESTO Hydromorphone HCl 0.25 mg 01/08/25 15:17 01/08/25 22:03 Hydromorphone Inj 2 Mg/Ml Vial IVP 01/13/25 11:18 0.25 mg Q3HR PRN Administration PAIN SCALE 4-10(Mod-Sev Protocol Multivitamins/Minerals 10 ml/ 1,010 mls @ 75 mls/hr 01/11/25 09:00 01/12/25 02:11 Dextrose IV 02/10/25 08:59 75 mls/hr .[id number] ERNESTO Administration Fluconazole 200 mg in 100 mls @ 100 mls/hr 01/11/25 10:07 01/12/25 12:07 Diflucan/Ns Ivpb IV 01/18/25 10:06 100 mls/hr QDAY ERNESTO Administration Potassium Phosphate 15 mmol in 250 mls @ 62.5 mls/hr 01/12/25 07:57 01/12/25 12:07 Pot Phos 15 Mmol In Ns 250 Ml IV 01/12/25 15:56 62.5 mls/hr Q4H ERNESTO Administration Levetiracetam 1,000 mg 01/07/25 21:00 01/12/25 08:41 Levetiracetam Inj 100 Mg/Ml Vial 5ml IVP 02/06/25 20:59 1,000 mg Q12HR ERNESTO Administration Lidocaine HCl 4 ml 01/10/25 18:00 01/12/25 12:21 Lidocaine Viscous 2% 15 Ml Udc PO 02/09/25 17:59 Not Given PCHS ERNESTO Melatonin 3 mg 01/10/25 21:00 01/11/25 22:24 Melatonin 3 Mg Tablet PO 02/09/25 20:59 Not Given HS ERNESTO Metoclopramide HCl 10 mg 01/07/25 17:32 Metoclopramide 5 Mg Tablet PO 02/06/25 17:31 Q6H PRN NAUSEA OR VOMITING Protocol Ondansetron HCl 4 mg 01/08/25 00:17 01/08/25 06:26 Ondansetron Inj 2 Mg/Ml Inj 2 Ml IV 02/07/25 00:16 4 mg Q6HR PRN Administration NAUSEA OR VOMITING Protocol Oxycodone HCl 5 mg 01/07/25 17:32 01/08/25 02:23 Oxycodone Hcl 5 Mg Ir Tab PO 01/12/25 17:31 5 mg Q6HR PRN Administration PAIN SCALE 4-10(Mod-Sev Thiamine HCl 100 mg 01/08/25 15:00 01/12/25 08:42 Thiamine Inj 100 Mg/Ml Vial 2 Ml IVP 02/07/25 14:59 100 mg QDAY ERNESTO Administration Trazodone HCl 50 mg 01/11/25 21:00 01/11/25 22:24 Trazodone Hcl 50 Mg Tablet PO 02/10/25 20:59 Not Given HS ERNESTO Trimethoprim/Sulfamethoxazole 1 tab 01/10/25 21:00 01/12/25 08:42 Trimethoprim/Sulfa 160/800 Ds Tablet PO 01/17/25 20:59 1 tab BID ERNESTO Administration
--- NOTE | 2025-01-12 14:39 | ESPR_ITS ---
<Statement entered by Bhavin Castillo MD - 01/12/25 16:31> Patient was seen and examined at the bedside this morning. Patient is AO x 2 however open appears to be better than yesterday. No acute overnight events were reported. Blood pressure remained stable. Patient saturating well on 2 L NC. Labs showed improvement in white count hemoglobin remained stable. Platelet count around 27. ANC 0.55. Chemistry panel showed borderline hypokalemia. Blood glucose was unremarkable. Phosphorus 1.4. We ordered PT evaluation however PT was not able to evaluate the patient and will be evaluated tomorrow morning. 1 L bolus of fluid was given due to decreased urine output. Will continue Bactrim for total 7 days as well as fluconazole for total 7 days. Anticipating discharge tomorrow. All labs and orders were reviewed. I saw and examined the patient, and I agree with current management stated by Dr Sierra MD,PGY1. Plan of care was discussed with the attending physician and resident physician. Disclaimer: Despite multiple revisions, due to the dictation software being used, the document bellow may not be free of grammatical errors including phonetic/typographic errors. However, this does not deter from our commitment to providing health care in the patient's best interest in mind. Dr. Jonathan MD, PGY 2 Documentation for date of: 01/12/25 Subjective Subjective Interval history: Lakshmi Salazar is a 59-year-old female with a past medical history of right-sided (ER/ME positive, HER2-low) breast cancer diagnosed 2012 s/p right-sided mastectomy with metastasis to brain, liver, lung, and bone who presented to the ED on 01/07 for generalized weakness and decreased PO intake and odynophagia in setting of oral ulcers. She does not endorse any abdominal pain, N/V/D but does say she has had fever, chills, and foul-smelling urine without dysuria. Of note, she had recently finished her last round of radiation therapy with Dr. Bradford and started on chemotherapy with Dr. Olmstead last week. During this time, it has been noted that patient has had increased swelling in her LUE as well as decreased function for the past three months. Patient admitted for further management of neutropenic fever in setting of recent chemoradiation therapy. 01/09: No acute overnight events noted. Seen and examined at bedside with family present. Patient states that she was able to drink some coffee without difficulty but still endorses pain in her oral cavity otherwise, does not endorse worsening shortness of breath, any fevers, chills, nausea, vomiting. Also spoke to family and informed them on current plans and clinical status. 01/10: Patient seen and examined at bedside this morning. No acute overnight events. Vitals, labs reviewed. Mildly tachycardic and SBP in 140s, but with patient without any acute complaints. States she occasionally does have some pain but it is of 3?4, and has not required any Dilaudid. Will resume p.o. oxycodone as she is increasing oral intake, as her oral thrush is improving. She states she has not slept and would like something for sleep tonight. Labs significant for increase in WBC, ANC 4402. Will give filgrastim for 1 more day. Urine culture returned ESBL, initially started on Zosyn, ID consulted appreciate recs. Platelets remain low, will continue to monitor. Electrolytes repleted. Family at bedside updated with plan. 01/11: No acute overnight events noted. Seen and examined at bedside in telemetry. Upon evaluation, patient appeared to be more more lethargic compared to prior and was not able to answer questions regarding orientation. Per nursing staff, mentation started to decline on 01/10 from p.m. onwards. Patient eyes are open to pain but was able to localize. She has not been able to sleep for the last couple of days and will start trazodone at bedtime. 01/12: No acute overnight events noted. Seen and examined at bedside in telemetry and patient appears to be much more alert and oriented (self, birthdate, place) compared to yesterday. She states that she was able to rest overnight and did not need trazodone. Otherwise, she has no other complaints and has been able to tolerate p.o. liquids and dysphagia 1 diet. Anticipate discharge within the next 24 to 48 hours, pending PT evaluation. Exam Vital Signs Temp Pulse Resp BP Pulse Ox O2 Del Method O2 Flow Rate 98.5 F 96 27 H 125/87 H 95 Nasal Cannula 2 01/12/25 12:01/12/25 12:01/12/25 12:01/12/25 12:01/12/25 12:01/12/25 12:00 01/12/25 12:00 Narrative Exam General: S alert and oriented x 3, answering questions appropriately, fatigued HEENT: poor dentition, improvement in stomatitis and oral thrush, NC/AT, mucous membranes moist, bilateral sclera anicteric Cardiovascular: tachycardic, regular rhythm, S1/S2 present, no murmurs appreciated Pulmonary: Diminished left-sided lung sounds, clear to auscultation on right Abdominal: soft, non-distended, no rebound/guarding, normal bowel sounds present Musculoskeletal: LUE edema, 0/5 strength in LUE, normal ROM Skin: warm and dry, intact, no rashes Objective Labs 01/12/25 04:40 01/12/25 04:40 Labs: Laboratory Results - last 24 hr 01/12/25 04:40 WBC 15.9 H RBC 3.03 L Hgb 10.6 L Hct 31.1 L MCV 103 H MCH 35.0 MCHC 34.1 RDW Std Deviation 51.8 H Plt Count 27 L* Neut % (Auto) 79 Lymph % (Auto) 3 L [place] % (Auto) 6 Eos % (Auto) 0 Baso % (Auto) 0 Neut # (Auto) 12.6 H Lymph # (Auto) 0.5 L [place] # (Auto) 0.9 H Eos # (Auto) 0.0 Baso # (Auto) 0.0 Immature Gran # (Auto) 1.96 H Absolute Nucleated RBC 0.55 H Immature Gran % 12 H Nucleated RBC % 4 H Sodium 145 Potassium 3.5 Chloride 112 H Carbon Dioxide 27.9 Anion Gap 5 L BUN 13 Creatinine 0.4 L Estim Creat Clear Calc 133.2 eGFR > 60 BUN/Creatinine Ratio 33 H Glucose 138 H Calculated Osmolality 290 Calcium 6.9 L Corrected Calcium 8.2 L Phosphorus 1.4 L Magnesium 2.0 Total Bilirubin 2.7 H D AST 58 H ALT 7 L Alkaline Phosphatase 208 H D Total Protein 5.0 L Albumin 2.4 L Globulin 2.6 Albumin/Globulin Ratio 0.9 L Misc Test Result Platelets confirmed ABG Interpretation ABG results: 01/07/25 10:14 VBG pH 7.57 VBG pCO2 30 L VBG pO2 100 H VBG Base Excess 5 H Quality Measures Quality Measures VTE prophylaxis (SCDs) and sepsis Current suspected stage: sepsis Possible source: pulmonary, GI tract/intra-abdominal, genitourinary, unknown and other (GNR bacteremia) Blood cultures ordered: completed in ED Antibiotic ordered: Yes Assessment & Plan Assessment Current Active Medications: Generic Name Dose Route Start Last Admin Trade Name Freq PRN Reason Stop Dose Admin Acetaminophen 650 mg 01/07/25 17:32 Acetaminophen 325 Mg Tablet PO 02/06/25 17:31 Q6H PRN PAIN 1-3 OR FEVER > 100.4 Al Hydrox/Mg Hydrox/Simethicone 6 ml 01/10/25 18:00 01/12/25 12:21 Mg Hyd/Al Hyd/Matt (Maalox Reg) Susp 30 Ml Udc PO 02/09/25 17:59 Not Given PCHS ERNESTO Hydromorphone HCl 0.25 mg 01/08/25 15:17 01/08/25 22:03 Hydromorphone Inj 2 Mg/Ml Vial IVP 01/13/25 11:18 0.25 mg Q3HR PRN Administration PAIN SCALE 4-10(Mod-Sev Protocol Multivitamins/Minerals 10 ml/ 1,010 mls @ 75 mls/hr 01/11/25 09:00 01/12/25 02:11 Dextrose IV 02/10/25 08:59 75 mls/hr .[id number] ERNESTO Administration Fluconazole 200 mg in 100 mls @ 100 mls/hr 01/11/25 10:07 01/12/25 12:07 Diflucan/Ns Ivpb IV 01/18/25 10:06 100 mls/hr QDAY ERNESTO Administration Potassium Phosphate 15 mmol in 250 mls @ 62.5 mls/hr 01/12/25 07:57 01/12/25 12:07 Pot Phos 15 Mmol In Ns 250 Ml IV 01/12/25 15:56 62.5 mls/hr Q4H ERNESTO Administration Levetiracetam 1,000 mg 01/07/25 21:00 01/12/25 08:41 Levetiracetam Inj 100 Mg/Ml Vial 5ml IVP 02/06/25 20:59 1,000 mg Q12HR ERNESTO Administration Lidocaine HCl 4 ml 01/10/25 18:00 01/12/25 12:21 Lidocaine Viscous 2% 15 Ml Udc PO 02/09/25 17:59 Not Given PCHS ERNESTO Melatonin 3 mg 01/10/25 21:00 01/11/25 22:24 Melatonin 3 Mg Tablet PO 02/09/25 20:59 Not Given HS ERNESTO Metoclopramide HCl 10 mg 01/07/25 17:32 Metoclopramide 5 Mg Tablet PO 02/06/25 17:31 Q6H PRN NAUSEA OR VOMITING Protocol Ondansetron HCl 4 mg 01/08/25 00:17 01/08/25 06:26 Ondansetron Inj 2 Mg/Ml Inj 2 Ml IV 02/07/25 00:16 4 mg Q6HR PRN Administration NAUSEA OR VOMITING Protocol Oxycodone HCl 5 mg 01/07/25 17:32 01/08/25 02:23 Oxycodone Hcl 5 Mg Ir Tab PO 01/12/25 17:31 5 mg Q6HR PRN Administration PAIN SCALE 4-10(Mod-Sev Thiamine HCl 100 mg 01/08/25 15:00 01/12/25 08:42 Thiamine Inj 100 Mg/Ml Vial 2 Ml IVP 02/07/25 14:59 100 mg QDAY ERNESTO Administration Trazodone HCl 50 mg 01/11/25 21:00 01/11/25 22:24 Trazodone Hcl 50 Mg Tablet PO 02/10/25 20:59 Not Given HS ERNESTO Trimethoprim/Sulfamethoxazole 1 tab 01/10/25 21:00 01/12/25 08:42 Trimethoprim/Sulfa 160/800 Ds Tablet PO 01/17/25 20:59 1 tab BID ERNESTO Administration Plan Lakshmi Salazar is a 59-year-old female with a past medical history of right-sided (ER/ME positive, HER2-low) breast cancer diagnosed 2012 s/p right-sided mastectomy with metastasis to brain, liver, lung, and bone who was admitted on 01/07 for management of neutropenic fever in setting of recent chemoradiation therapy. #Severe sepsis in setting of neutropenic fever, resolved #? Cholecystitis vs PNA vs UTI vs GNR bacteremia #History of breast cancer status post chemoradiation therapy On presentation: ANC 80, Pro-Esequiel 4.2, LA 3, Tmax 101.9, tachycardia, tachypnea and hypotensive 78/54. WBC uptrending from 4.7 to 15.7. Repeat CXR continues to showed extensive left- sided opacity. ? Blood culture 01/07: Klebsiella in 2/2 bottles, with repeat cultures negative at 24 hours ? Blood culture 01/09: NGTD ? Urine culture 01/07: ESBL E. coli ? ID consulted, appreciate recs: Bactrim ? Case discussed with patient's oncologist: filgrastim 300 mcg SC daily (01/08- 01/10) #Hyperbilirubinemia, improving #Coagulopathy Abdominal US: Concerning for acute cholecystitis with large CBD in setting of elevated T. bili. MRCP: thickened gallbladder wall and no CBD dilatation. Initially had TTP in RUQ with positive Silva sign, 01/10 no abdominal tenderness => will hold off on general surgery consult at this time and continue to monitor patient's symptoms/exam. #Pancytopenia #Macrocytic anemia 2 units platelets transfused at admission => platelets 23, Hgb 10.6, MCV 102; improved leukocyte/ANC as above B12 749. RBC folate pending. ? Continue to monitor CBC #Mucositis in setting of chemotherapy #Oral thrush ? Fluconazole 200 mg IV daily ? Maalox with lidocaine PO PCHS with goal of aiding in tolerating diet #Failure to thrive #Electrolyte abnormalities #Hyperosmolar hypernatremia #Hypophosphatemia ? K and Phos repleted with total of 15 mmol #Lactic acidosis, improved Received 7 L IVF in ED. ? Continue to trend => downtrending #Left upper extremity swelling ? Doppler negative for DVT #Seizures ? Home Keppra 1000 mg twice daily #History of hypertension ? Hold home antihypertensives given low BP #Chronic pain, likely secondary to bone mets ? Oxycodone changed to IV Dilaudid 0.25 mg every 3 hours #Subclinical hyperthyroidism TSH 0.26, free T4 within normal limits ? Possibly in the setting of chemo => will advise patient to repeat thyroid panel in 4 to 6 weeks Hospital management: Disposition: Pending physical therapy evaluation Fluids: D5W with vitamins Diet: Dysphagia 1; p.o. intake is increasing Lines: PIV DVT prophylaxis: SCDs GI prophylaxis: Pantoprazole IV [place]: Placed CODE STATUS: full code ----- Plan discussed with attending physician Dr. Suarez and senior resident physician Dr. Jonathan Esquivel MD PGY-1 Internal Medicine Attending Provider Attestation/Addendum I have discussed and was present for the essential components of the history, physical examination, diagnosis, and treatment plan with the resident. I agree with the patient's care as documented by the resident and amended herein by me. Regulo Suarez DO. Patient seen and evaluated this AM. No acute events overnight, patient tachycardic with a pulse of 112. SpO2 94% on 2 L NC. Patient afebrile overnight. Patient states that he slept well last night, much more rested, alert and oriented this morning. Significant labs include a WBC of 15.9 which is likely attributed to the gastrum given, hemoglobin stable 10.6, platelets low at 27 however stable. BMP significant for a sodium of 145, potassium 3.5, chloride 112, BUN 13 and a normal creatinine. The patient's oral lesions are also significantly improved on the fluconazole. Will replete electrolytes as necessary, continue Bactrim per infectious disease recommendations, will also continue a 7-day course of fluconazole for the patient's oral candidiasis, limiting her oral intake. Initial physical therapy evaluation will be tomorrow however the patient's family does want her to go home, home health with physical therapy has been ordered. Likely discharge tomorrow, 01/13 if the patient continues to improve. Although this document has been carefully reviewed, there may still be some phonetic and other typographical errors. These errors are purely grammatical due to imperfections in the software program and should not be construed in any way to compromise the substance of the patient's medical care during this visit.
[2025-01-12] MEDS: LIDOCAINE VISCOUS 2% 15 ML UDC 4 ML PO (20:50)
[2025-01-12] MEDS: MG HYD/AL HYD/SIME (Maalox Reg) SUSP 30 ML UDC 6 ML PO (20:51)
[2025-01-12] MEDS: MELATONIN 3 MG TABLET PO (20:51)
[2025-01-13] VITALS (9 sets, daily range): BP systolic 107–126; BP diastolic 70–83; PULSE 100–114; RESP 18–26; TEMP 36.3–36.8; O2SAT 94–96; BMI 25.0; BMI 12.0
[2025-01-13 06:13] LABS: Basophils # (Auto) 0.1 Thou/mm3 (0.0-0.2); Basophils % (Auto) 1 % (0-2.5); Eosinophils % (Auto) 0 % (0-10); Hematocrit 31.3 % (36.0-46.0); Hemoglobin 10.7 g/dL (12.0-16.0); Immature Granulocytes % (Auto) 12 % (0-0); Immature Granulocytes Auto 1.37 Thou/mm3 (0.00-0.00); Lymphocytes # (Auto) 0.4 Thou/mm3 (1.0-4.8); Lymphocytes % (Auto) 4 % (10-50); Mean Corpuscular HGB Conc 34.2 g/dl (31.0-37.0); Mean Corpuscular Hemoglobin 35.1 pg (25.0-35.0); Mean Corpuscular Volume 103 fL (80-100); Monocytes # (Auto) 0.9 Thou/mm3 (0.0-0.8); Monocytes % (Auto) 8 % (0-12); Neutrophils # (Auto) 8.6 Thou/mm3 (1.8-7.7); Neutrophils % (Auto) 76 % (37-80); Nucleated Red Blood Cell # 0.46 Thou/mm3 (0.00-0.00); Nucleated Red Blood Cell % 4 /100 WBC (0); Red Blood Count 3.05 Miln/mm3 (4.00-5.20); White Blood Count 11.3 Thou/mm3 (3.6-11.0)
[2025-01-13 06:14] LABS: Platelet Count 21 Thou/mm3 (140-440)
[2025-01-13 06:15] LABS: Slide Review Platelets confirmed
[2025-01-13 06:39] LABS: Alanine Aminotransferase 11 U/L (10-49); Albumin, Serum 2.3 gm/dL (3.5-5.0); Albumin/Globulin Ratio 0.9 (1.2-2.2); Alkaline Phosphatase 205 U/L (46-116); Anion Gap 7 (7-16); Aspartate Amino Transferase 54 U/L (0-34); BUN/Creatinine Ratio 28 Ratio (12-20); Bilirubin,Total 2.6 mg/dL (0.3-1.2); Blood Urea Nitrogen 11 mg/dL (9-23); Calcium (Corrected) 7.9 mg/dL (8.5-10.1); Chloride 109 mMol/L (98-107); Creatinine (Component) 0.4 mg/dL (0.6-1.3); Estimated Creatinine Clearance 133.2 mL/min (>60); Globulin 2.6 gm/dL (2.3-3.5); Glucose 149 mg/dL (74-106); Magnesium 1.9 mg/dL (1.6-2.6); Osmolality,Calculated 285 (275-295); Phosphorous 1.5 mg/dL (2.4-5.1); Potassium 3.9 mMol/L (3.4-5.1); Sodium 142 mMol/L (136-145); Total Protein 4.9 gm/dL (5.7-8.2); eGFR > 60 See Note
[2025-01-13 06:41] LABS: Calcium 6.5 mg/dL (8.3-10.6)
[2025-01-13 06:59] LABS: Folate, RBC* 763 ng/mL RBC (>280)
--- NOTE | 2025-01-13 07:32 | PC.CC ---
Pt entered into [facility], no preferred agencies noted
[2025-01-13] MEDS: FLUCONAZOLE/NS 200 MG IVPB 200 MG/100 ML BAG 100 MG IV (08:24)
[2025-01-13] MEDS: POT PHOS 15 mMol in NS 250 ML 15 MMOL/250 ML BAG 62.5 MMOL IV ×2 (08:24→11:53)
[2025-01-13] MEDS: THIAMINE INJ 100 MG/ML VIAL 2 ML IVP (08:25)
[2025-01-13] MEDS: levETIRAcetam INJ 100 MG/ML VIAL 5ML 1000 MG IVP ×2 (08:25→20:34)
[2025-01-13] MEDS: MG HYD/AL HYD/SIME (Maalox Reg) SUSP 30 ML UDC 6 ML PO ×4 (08:25→20:35)
[2025-01-13] MEDS: LIDOCAINE VISCOUS 2% 15 ML UDC 4 ML PO ×4 (08:25→20:35)
[2025-01-13] MEDS: TRIMETHOPRIM/SULFA 160/800 DS TABLET 1 TAB PO ×2 (08:26→20:35)
[2025-01-13] MEDS: CALCIUM CARBONATE 600 MG TABLET PO (08:26)
--- NOTE | 2025-01-13 09:07 | PD.IDPROG ---
Subjective Subjective Interval history: primary team restarted the flucon. rationale for use of that agent per them. finish Bactrim Monday. use of flucon at discretion of primary team. it is the same po or iv btw. Exam Vital Signs Temp Pulse Resp BP Pulse Ox O2 Del Method O2 Flow Rate 97.4 F 107 H 18 118/73 95 Nasal Cannula 2 01/13/25 04:00 01/13/25 07:47 01/13/25 07:47 01/13/25 04:00 01/13/25 07:47 01/13/25 04:00 01/13/25 07:47 Narrative Exam limited eval Objective - Internal Medicine Labs 01/13/25 05:47 01/13/25 05:47 Labs: Laboratory Results - last 24 hr 01/07/25 01/13/25 19:19 05:47 WBC 11.3 H RBC 3.05 L Hgb 10.7 L Hct 31.3 L MCV 103 H MCH 35.1 H MCHC 34.2 RDW Std Deviation 53.0 H Plt Count 21 L* D Neut % (Auto) 76 Lymph % (Auto) 4 L [place] % (Auto) 8 Eos % (Auto) 0 Baso % (Auto) 1 Neut # (Auto) 8.6 H Lymph # (Auto) 0.4 L [place] # (Auto) 0.9 H Eos # (Auto) 0.0 Baso # (Auto) 0.1 Immature Gran # (Auto) 1.37 H Absolute Nucleated RBC 0.46 H Immature Gran % 12 H Nucleated RBC % 4 H Sodium 142 Potassium 3.9 Chloride 109 H Carbon Dioxide 26.0 Anion Gap 7 BUN 11 Creatinine 0.4 L Estim Creat Clear Calc 133.2 eGFR > 60 BUN/Creatinine Ratio 28 H Glucose 149 H Calculated Osmolality 285 Calcium 6.5 L* Corrected Calcium 7.9 L Phosphorus 1.5 L Magnesium 1.9 Total Bilirubin 2.6 H AST 54 H ALT 11 Alkaline Phosphatase 205 H Total Protein 4.9 L Albumin 2.3 L Globulin 2.6 Albumin/Globulin Ratio 0.9 L RBC Folate Hemolysate 763 Misc Test Result Platelets confirmed ABG Interpretation ABG results: 01/07/25 10:14 VBG pH 7.57 VBG pCO2 30 L VBG pO2 100 H VBG Base Excess 5 H Assessment & Plan A&P Narrative neutropenic sepsis. bc with kleb metastatic breast CA. prognosis per oncology use of flucon per primary team she is only 59 yoa. that may play into the rx plan for her bactrim ds 1 po bid thru 01/17 planned. counts up. fever gone. will see again prn duration of flucon up to primary team as they restarted it the other day Time Spent With Patient Time: Total time spent is greater than 50% in coordination of care (as documented) at patient's floor/unit and/or counseling patient:
--- NOTE | 2025-01-13 10:40 | PC.RT ---
SS follow up note; SS was contacted by Gilles from PT and he informed SS that patient would need SNF. SS contacted surrogate decision maker, Miriam and she reported she would like patient to discharge to SNF. SS submitted SNF inquiry through [facility]. SS will contact Miriam to present SNF choices.
--- NOTE | 2025-01-13 11:46 | ESPR_ITS ---
<Statement entered by Bhavin Castillo MD - 01/13/25 15:25> He was seen and examined at the bedside. No acute overnight events were reported. Vitals were stable this morning. Patient was more alert and interactive. PT evaluated the patient recommended short-term rehab as patient is extremely weak. Urine output was 675 cc. White count, hemoglobin as well as platelet downtrended. Due to drop in platelet we will keep the patient 1 more day to evaluate and if continues to decline we will likely touch base with oncologist, Dr. Olmstead for possible administration of Promacta or any other recommendations. Family was updated regarding the plan. Currently continuing nystatin swish and swallow for oral thrush as well as fluconazole.Continue bactrim until 01/17. All labs and orders were reviewed. I saw and examined the patient, and I agree with current management stated by Dr Sierra MD,PGY1. Plan of care was discussed with the attending physician and resident physician. Disclaimer: Despite multiple revisions, due to the dictation software being used, the document bellow may not be free of grammatical errors including phonetic/typographic errors. However, this does not deter from our commitment to providing health care in the patient's best interest in mind. Dr. Jonathan MD, PGY 2 Documentation for date of: 01/13/25 Subjective Subjective Interval history: Lakshmi Salazar is a 59-year-old female with a past medical history of right-sided (ER/IA positive, HER2-low) breast cancer diagnosed 2012 s/p right-sided mastectomy with metastasis to brain, liver, lung, and bone who presented to the ED on 01/07 for generalized weakness and decreased PO intake and odynophagia in setting of oral ulcers. She does not endorse any abdominal pain, N/V/D but does say she has had fever, chills, and foul-smelling urine without dysuria. Of note, she had recently finished her last round of radiation therapy with Dr. Bradford and started on chemotherapy with Dr. Olmstead last week. During this time, it has been noted that patient has had increased swelling in her LUE as well as decreased function for the past three months. Patient admitted for further management of neutropenic fever in setting of recent chemoradiation therapy. 01/09: No acute overnight events noted. Seen and examined at bedside with family present. Patient states that she was able to drink some coffee without difficulty but still endorses pain in her oral cavity otherwise, does not endorse worsening shortness of breath, any fevers, chills, nausea, vomiting. Also spoke to family and informed them on current plans and clinical status. 01/10: Patient seen and examined at bedside this morning. No acute overnight events. Vitals, labs reviewed. Mildly tachycardic and SBP in 140s, but with patient without any acute complaints. States she occasionally does have some pain but it is of 3?4, and has not required any Dilaudid. Will resume p.o. oxycodone as she is increasing oral intake, as her oral thrush is improving. She states she has not slept and would like something for sleep tonight. Labs significant for increase in WBC, ANC 4402. Will give filgrastim for 1 more day. Urine culture returned ESBL, initially started on Zosyn, ID consulted appreciate recs. Platelets remain low, will continue to monitor. Electrolytes repleted. Family at bedside updated with plan. 01/11: No acute overnight events noted. Seen and examined at bedside in telemetry. Upon evaluation, patient appeared to be more more lethargic compared to prior and was not able to answer questions regarding orientation. Per nursing staff, mentation started to decline on 01/10 from p.m. onwards. Patient eyes are open to pain but was able to localize. She has not been able to sleep for the last couple of days and will start trazodone at bedtime. 01/12: No acute overnight events noted. Seen and examined at bedside in telemetry and patient appears to be much more alert and oriented (self, birthdate, place) compared to yesterday. She states that she was able to rest overnight and did not need trazodone. Otherwise, she has no other complaints and has been able to tolerate p.o. liquids and dysphagia 1 diet. Anticipate discharge within the next 24 to 48 hours, pending PT evaluation. 01/13: No acute overnight events noted. Seen and examined at bedside in telemetry with family present. She remains oriented to self, birthdate, place compared to a couple of days ago. She continues to tolerate oral liquids and dysphagia 1 diet. Seen by physical therapy who recommended short-term rehab placement for further PT. However, will keep patient for another 24 hours to monitor platelets. Exam Vital Signs Temp Pulse Resp BP Pulse Ox O2 Del Method O2 Flow Rate 97.5 F 106 H 20 119/77 95 Nasal Cannula 2 01/13/25 08:00 01/13/25 08:00 01/13/25 08:00 01/13/25 08:00 01/13/25 08:00 01/13/25 08:00 01/13/25 08:00 Narrative Exam General: alert and oriented x 3, answering questions appropriately, fatigued HEENT: poor dentition, improvement in stomatitis and oral thrush, NC/AT, mucous membranes moist, bilateral sclera anicteric Cardiovascular: tachycardic, regular rhythm, S1/S2 present, no murmurs appreciated Pulmonary: Diminished left-sided lung sounds, clear to auscultation on right Abdominal: soft, non-distended, no rebound/guarding, normal bowel sounds present Musculoskeletal: LUE edema, 0/5 strength in LUE Skin: warm and dry, intact, no rashes Objective Labs 01/13/25 05:47 01/13/25 05:47 Labs: Laboratory Results - last 24 hr 01/07/25 01/13/25 19:19 05:47 WBC 11.3 H RBC 3.05 L Hgb 10.7 L Hct 31.3 L MCV 103 H MCH 35.1 H MCHC 34.2 RDW Std Deviation 53.0 H Plt Count 21 L* D Neut % (Auto) 76 Lymph % (Auto) 4 L Sanders % (Auto) 8 Eos % (Auto) 0 Baso % (Auto) 1 Neut # (Auto) 8.6 H Lymph # (Auto) 0.4 L Sanders # (Auto) 0.9 H Eos # (Auto) 0.0 Baso # (Auto) 0.1 Immature Gran # (Auto) 1.37 H Absolute Nucleated RBC 0.46 H Immature Gran % 12 H Nucleated RBC % 4 H Sodium 142 Potassium 3.9 Chloride 109 H Carbon Dioxide 26.0 Anion Gap 7 BUN 11 Creatinine 0.4 L Estim Creat Clear Calc 133.2 eGFR > 60 BUN/Creatinine Ratio 28 H Glucose 149 H Calculated Osmolality 285 Calcium 6.5 L* Corrected Calcium 7.9 L Phosphorus 1.5 L Magnesium 1.9 Total Bilirubin 2.6 H AST 54 H ALT 11 Alkaline Phosphatase 205 H Total Protein 4.9 L Albumin 2.3 L Globulin 2.6 Albumin/Globulin Ratio 0.9 L RBC Folate Hemolysate 763 Misc Test Result Platelets confirmed ABG Interpretation ABG results: 01/07/25 10:14 VBG pH 7.57 VBG pCO2 30 L VBG pO2 100 H VBG Base Excess 5 H Quality Measures Quality Measures VTE prophylaxis (SCDs) and sepsis Current suspected stage: sepsis Possible source: pulmonary, GI tract/intra-abdominal, genitourinary, unknown and other (GNR bacteremia) Blood cultures ordered: completed in ED Antibiotic ordered: Yes Assessment & Plan Assessment Current Active Medications: Generic Name Dose Route Start Last Admin Trade Name Freq PRN Reason Stop Dose Admin Acetaminophen 650 mg 01/07/25 17:32 Acetaminophen 325 Mg Tablet PO 02/06/25 17:31 Q6H PRN PAIN 1-3 OR FEVER > 100.4 Al Hydrox/Mg Hydrox/Simethicone 6 ml 01/10/25 18:00 01/13/25 08:25 Mg Hyd/Al Hyd/Matt (Maalox Reg) Susp 30 Ml Udc PO 02/09/25 17:59 6 ml PCHS ERNESTO Administration Calcium Carbonate 600 mg 01/13/25 09:00 01/13/25 08:26 Calcium Carbonate 600 Mg Tablet PO 02/12/25 08:59 600 mg QDAY ERNESTO Administration Multivitamins/Minerals 10 ml/ 1,010 mls @ 75 mls/hr 01/11/25 09:00 01/13/25 05:51 Dextrose IV 02/10/25 08:59 75 mls/hr .[id number] ERNESTO Administration Fluconazole 200 mg in 100 mls @ 100 mls/hr 01/11/25 10:07 01/13/25 08:24 Diflucan/Ns Ivpb IV 01/18/25 10:06 100 mls/hr QDAY ERNESTO Administration Potassium Phosphate 15 mmol in 250 mls @ 62.5 mls/hr 01/13/25 07:45 01/13/25 08:24 Pot Phos 15 Mmol In Ns 250 Ml IV 01/13/25 15:44 62.5 mls/hr Q4H ERNESTO Administration Levetiracetam 1,000 mg 01/07/25 21:00 01/13/25 08:25 Levetiracetam Inj 100 Mg/Ml Vial 5ml IVP 02/06/25 20:59 1,000 mg Q12HR ERNESTO Administration Lidocaine HCl 4 ml 01/10/25 18:00 01/13/25 08:25 Lidocaine Viscous 2% 15 Ml Udc PO 02/09/25 17:59 4 ml PCHS ERNESTO Administration Melatonin 3 mg 01/10/25 21:00 01/12/25 20:51 Melatonin 3 Mg Tablet PO 02/09/25 20:59 3 mg HS ERNESTO Administration Metoclopramide HCl 10 mg 01/07/25 17:32 Metoclopramide 5 Mg Tablet PO 02/06/25 17:31 Q6H PRN NAUSEA OR VOMITING Protocol Ondansetron HCl 4 mg 01/08/25 00:17 01/08/25 06:26 Ondansetron Inj 2 Mg/Ml Inj 2 Ml IV 02/07/25 00:16 4 mg Q6HR PRN Administration NAUSEA OR VOMITING Protocol Thiamine HCl 100 mg 01/08/25 15:00 01/13/25 08:25 Thiamine Inj 100 Mg/Ml Vial 2 Ml IVP 02/07/25 14:59 100 mg QDAY ERNESTO Administration Trazodone HCl 50 mg 01/11/25 21:00 01/12/25 20:51 Trazodone Hcl 50 Mg Tablet PO 02/10/25 20:59 Not Given HS ERNESTO Trimethoprim/Sulfamethoxazole 1 tab 01/10/25 21:00 01/13/25 08:26 Trimethoprim/Sulfa 160/800 Ds Tablet PO 01/17/25 20:59 1 tab BID ERNESTO Administration Plan Lakshmi Salazar is a 59-year-old female with a past medical history of right-sided (ER/IA positive, HER2-low) breast cancer diagnosed 2012 s/p right-sided mastectomy with metastasis to brain, liver, lung, and bone who was admitted on 01/07 for management of neutropenic fever in setting of recent chemoradiation therapy. #Severe sepsis in setting of neutropenic fever, resolved #? Cholecystitis vs PNA vs UTI vs GNR bacteremia #History of breast cancer status post chemoradiation therapy On presentation: ANC 80, Pro-Esequiel 4.2, LA 3, Tmax 101.9, tachycardia, tachypnea and hypotensive 78/54. WBC uptrending from 4.7 to 15.7. Repeat CXR continues to showed extensive left- sided opacity. ? Blood culture 01/07: Klebsiella in 2/2 bottles ? Blood culture 01/09: NGTD ? Urine culture 01/07: ESBL E. coli ? ID consulted, appreciate recs: Bactrim ? Case discussed with patient's oncologist: filgrastim 300 mcg SC daily (01/08- 01/10) #Pancytopenia #Macrocytic anemia #Thrombocytopenia 2 units platelets transfused at admission B12 749. RBC folate 763. ? Continue to monitor CBC ? If platelets decrease from , will reach out to patient's oncologist for recommendations ? If platelets remain stable, anticipate discharge within next 24 hours #Mucositis in setting of chemotherapy, improving #Oral thrush, improving ? Fluconazole 200 mg IV daily ? Maalox with lidocaine PO PCHS with goal of aiding in tolerating diet #Failure to thrive #Electrolyte abnormalities #Hyperosmolar hypernatremia, resolved #Hypophosphatemia #Hypocalcemia ? Calcium carbonate 600 mg p.o. daily ? K and Phos repleted with total of 30 mmol #Hyperbilirubinemia, improving #Coagulopathy Abdominal US: Concerning for acute cholecystitis with large CBD in setting of elevated T. bili. MRCP: thickened gallbladder wall and no CBD dilatation. Initially had TTP in RUQ with positive Silva sign, 01/10 no abdominal tenderness => will hold off on general surgery consult at this time and continue to monitor patient's symptoms/exam. #Lactic acidosis, improved Received 7 L IVF in ED. ? Continue to trend => downtrending #Left upper extremity swelling ? Doppler negative for DVT #Seizures ? Home Keppra 1000 mg twice daily #History of hypertension ? Hold home antihypertensives given low BP #Chronic pain, likely secondary to bone mets ? Oxycodone changed to IV Dilaudid 0.25 mg every 3 hours #Subclinical hyperthyroidism TSH 0.26, free T4 within normal limits ? Possibly in the setting of chemo => will advise patient to repeat thyroid panel in 4 to 6 weeks Hospital management: Disposition: Neutropenic fever resolved, monitoring platelets Fluids: D5W with vitamins Diet: Dysphagia 1; p.o. intake is increasing Lines: PIV DVT prophylaxis: SCDs GI prophylaxis: Pantoprazole IV Noble: Placed CODE STATUS: full code ----- Plan discussed with attending physician Dr. Suarez and senior resident physician Dr. Jnoathan Esquivel MD PGY-1 Internal Medicine Attending Provider Attestation/Addendum I have discussed and was present for the essential components of the history, physical examination, diagnosis, and treatment plan with the resident. I agree with the patient's care as documented by the resident and amended herein by me. Regulo Suarez DO. Patient seen and evaluated this AM. No acute events overnight, patient's mentation back to baseline, she slept well overnight. Blood pressure WNL, pulse slightly tachycardic at 101, I's and O's 2385/675. The patient's cell counts are beginning to decline, no Neupogen in the few days, WBCs down trended 11.3 today, hemoglobin stable at 10.7, neutrophils 8.6 today, lymphocytes 0.4. Platelets down trended to 21, the patient did come in with a platelet count of 11 which did uptrend after Neupogen. Physical therapy did evaluate the patient and recommended SNF placement which the family does agree with. Patient will continue on Bactrim per infectious disease until 01/17 for Klebsiella oxytocin bacteremia in setting of neutropenic fever, patient will also continue on a few more days of fluconazole for oral thrush which was severe however significantly improved now. Patient is getting close to discharge to SNF however I am hesitant due to the platelet drop, will monitor overnight however if they continue to decline, we may have to reach out to oncology tomorrow, possibly more fill gastrum or maybe Promacta. If it is stable and they be best to leave it alone if it is not to low. Will continue to monitor closely, all the patient's family was at bedside today, they were all updated, will replete electrolytes as needed and reassess tomorrow. Although this document has been carefully reviewed, there may still be some phonetic and other typographical errors. These errors are purely grammatical due to imperfections in the software program and should not be construed in any way to compromise the substance of the patient's medical care during this visit.
--- NOTE | 2025-01-13 12:26 | PC.SS ---
Addendum entered by Maxine Salazar 01/13/25 12:53: SS follow up note; SS sent PT notes to [facility]. She informed SS she will submit for auth. Original Note: SS was informed by Gilles from PT that patient was needing SNF. SS contacted Miriam patient's surrogate decision maker and her choice of SNF is [facility], SS contacted [facility] and she informed SS she is able to accept patient however will submit once PT note is faxed. SS awaiting for PT notes to fax to [facility]. SS sent [facility] as well.
[2025-01-13] MEDS: traZODone HCL 50 MG TABLET PO (20:35)
[2025-01-13] MEDS: MELATONIN 3 MG TABLET PO (20:35)
[2025-01-14] VITALS (8 sets, daily range): BP systolic 107–126; BP diastolic 67–80; PULSE 76–109; RESP 14–28; TEMP 36.1–37.2; O2SAT 93–98
[2025-01-14 05:44] LABS: Basophils % (Auto) 0 % (0-2.5); Eosinophils % (Auto) 0 % (0-10); Hematocrit 28.7 % (36.0-46.0); Hemoglobin 9.9 g/dL (12.0-16.0); Immature Granulocytes % (Auto) 11 % (0-0); Immature Granulocytes Auto 0.89 Thou/mm3 (0.00-0.00); Lymphocytes # (Auto) 0.1 Thou/mm3 (1.0-4.8); Lymphocytes % (Auto) 2 % (10-50); Mean Corpuscular HGB Conc 34.5 g/dl (31.0-37.0); Mean Corpuscular Hemoglobin 35.4 pg (25.0-35.0); Mean Corpuscular Volume 103 fL (80-100); Monocytes # (Auto) 0.5 Thou/mm3 (0.0-0.8); Monocytes % (Auto) 6 % (0-12); Neutrophils # (Auto) 6.8 Thou/mm3 (1.8-7.7); Neutrophils % (Auto) 82 % (37-80); Nucleated Red Blood Cell % 5 /100 WBC (0); Platelet Count 89 Thou/mm3 (140-440); RDW Standard Deviation 53.6 fL (36.4-46.3); White Blood Count 8.3 Thou/mm3 (3.6-11.0)
[2025-01-14 06:05] LABS: Alanine Aminotransferase 12 U/L (10-49); Albumin, Serum 2.3 gm/dL (3.5-5.0); Alkaline Phosphatase 191 U/L (46-116); Anion Gap 6 (7-16); Aspartate Amino Transferase 78 U/L (0-34); BUN/Creatinine Ratio 25 Ratio (12-20); Bilirubin,Total 2.5 mg/dL (0.3-1.2); Blood Urea Nitrogen 10 mg/dL (9-23); Calcium (Corrected) 7.9 mg/dL (8.5-10.1); Carbon Dioxide 26.7 mMol/L (20.0-31.0); Chloride 106 mMol/L (98-107); Creatinine (Component) 0.4 mg/dL (0.6-1.3); Estimated Creatinine Clearance 142.8 mL/min (>60); Globulin 2.4 gm/dL (2.3-3.5); Glucose 131 mg/dL (74-106); Magnesium 1.8 mg/dL (1.6-2.6); Osmolality,Calculated 278 (275-295); Phosphorous 1.4 mg/dL (2.4-5.1); Potassium 4.2 mMol/L (3.4-5.1); Sodium 139 mMol/L (136-145); Total Protein 4.7 gm/dL (5.7-8.2); eGFR > 60 See Note
[2025-01-14 06:11] LABS: Calcium 6.5 mg/dL (8.3-10.6)
[2025-01-14] MEDS: LIDOCAINE VISCOUS 2% 15 ML UDC 4 ML PO ×4 (08:29→20:38)
[2025-01-14] MEDS: MG HYD/AL HYD/SIME (Maalox Reg) SUSP 30 ML UDC 6 ML PO ×4 (08:29→20:19)
[2025-01-14] MEDS: TRIMETHOPRIM/SULFA 160/800 DS TABLET 1 TAB PO ×2 (08:30→20:20)
[2025-01-14] MEDS: CALCIUM CARBONATE 600 MG TABLET PO (08:30)
[2025-01-14] MEDS: THIAMINE INJ 100 MG/ML VIAL 2 ML IVP (08:30)
[2025-01-14] MEDS: Magnesium Sulfate 2 GM Ivpb 2 GM/50 ML BAG IV (08:31)
[2025-01-14] MEDS: NAPH,KPH MBDB 1 PACKET (1.5 GM) 2 PACKET PO (08:31)
[2025-01-14] MEDS: levETIRAcetam INJ 100 MG/ML VIAL 5ML 1000 MG IVP ×2 (08:31→20:18)
[2025-01-14] MEDS: FLUCONAZOLE/NS 200 MG IVPB 200 MG/100 ML BAG 100 MG IV (08:58)
--- NOTE | 2025-01-14 11:13 | ESDS_ITS ---
<Statement entered by Bhavni Castillo MD - 01/14/25 14:46> Patient was seen and examined at the bedside. No acute overnight events were reported. Vitals were stable this morning. Labs revealed improvement in platelet count. No fevers were recorded. Patient is currently pending on SNF authorization and will likely discharge to [facility] today. I saw and examined the patient, and I agree with current management stated by Dr Sierra MD,PGY1. Plan of care was discussed with the attending physician and resident physician. Disclaimer: Despite multiple revisions, due to the dictation software being used, the document bellow may not be free of grammatical errors including phonetic/typographic errors. However, this does not deter from our commitment to providing health care in the patient's best interest in mind. Dr. Jonathan MD, PGY 2 Planned Discharge Date 01/14/25 DS: Providers Provider Date of admission: 01/07/25 17:29 Primary care physician: Klever Daniel MD Admitting Provider: Madan Suarez DO Attending Provider on Admission: Madan Suarez DO Consults: 01/07/25 17:31 Referral Registered Dietitian Stat Comment: Instructions: Oral ulcers, referral for diet patient can tolerate 01/07/25 21:00 Referral Registered Dietitian Routine Comment: 01/08/25 08:22 Consult to Infectious Diseases Urgent Comment: neutropenic fever Consulting Provider: Bienvenido Salinas 01/12/25 10:10 Referral Physical Therapy Routine Comment: Physician Instructions: Instructions: Assess for home health assessment. Attending Provider on DC: Reinier Esquivel MD Discharging Provider: Reinier Esquivel MD DS: Diagnosis Problem List Completed Was Problem List Reviewed/Reconciled?: Yes Hospital Course Hospital Course Hospital course: Lakshmi Salazar is a 59-year-old female with a past medical history of right-sided (ER/MI positive, HER2-low) breast cancer diagnosed 2012 s/p right-sided mastectomy with metastasis to brain, liver, lung, and bone who presented to the ED on 01/07 for generalized weakness, decreased PO intake, and odynophagia in setting of oral ulcers. She does not endorse any abdominal pain, N/V/D but does say she has had fever, chills, and foul-smelling urine without dysuria. Of note, she had recently finished her last round of radiation therapy with Dr. Bradford and started on chemotherapy with Dr. Olmstead week prior to presentation. During this time, it has been noted that patient has had increased swelling in her LUE as well as decreased function for the past three months. Upon presentation to the ED, blood pressure was 78/54, HR of 133, temp 101.9 F and saturating 91% on room air and ICU team was consulted. However, blood pressure did eventually respond to fluid resuscitation as MAP > 65 and thus medicine team was called for admission. Initial WBC <0.4 (ANC 80), platelets 11, T. bili 6.1, Pro-Esequiel 4.2. UA dirty, abdominal ultrasound showed thickened gallbladder wall, CXR showed extensive pleural/parenchymal disease in left hemithorax. Admitted for further management of neutropenic fever. Originally on cefepime, vancomycin, and Flagyl. Infectious disease consulted and recommended cefepime only, but decided to continue with Flagyl due to right upper quadrant pain in setting of hyperbilirubinemia and abdominal ultrasound findings. Patient also started on fluconazole for oral ulcers and thrush. Blood cultures eventually grew Klebsiella oxytoca and 2 out of 2 bottles as well as ESBL E. coli from urine culture. Per ID, antibiotics changed to Bactrim to cover both bugs and other antibiotics discontinued. Also spoke to patient's oncologist, Dr. Olmstead, over the phone for recommendations regarding neutropenic fever and started Filgrastim. 2 drains pulled out 26 mL for the pelvic abscess 26 mL material and 1 throughout hospitalization, ANC significantly improved, thrombocytopenia improved after transfusion 1 unit platelets, and subsequently blood cultures negative. Mucositis and oral thrush also improved with fluconazole states that patient was unable to tolerate anything p.o. on admission and was drinking 7-Up, coffee, and soft solids on day of discharge. Patient will be discharged on an additional 14 days of fluconazole and 4 days of Bactrim for thrush and UTI, respectively. Recommended to follow-up with PCP and oncologist within 1 to 2 weeks of discharge and to return to the ED if symptoms worsen or recur. Diagnoses during admission: #Severe sepsis in setting of neutropenic fever, resolved #? Cholecystitis vs PNA vs UTI vs GNR bacteremia #History of breast cancer status post chemoradiation therapy #Pancytopenia #Macrocytic anemia #Thrombocytopenia #Mucositis in setting of chemotherapy, improving #Oral thrush, improving #Failure to thrive #Electrolyte abnormalities #Hyperosmolar hypernatremia, resolved #Hypophosphatemia #Hypocalcemia #Hyperbilirubinemia, improving #Coagulopathy #Lactic acidosis, improved #Left upper extremity swelling #Seizures #History of hypertension #Chronic pain, likely secondary to bone mets #Subclinical hyperthyroidism Discharge instructions: - Continue taking fluconazole oral suspension daily for another 14 days for oral thrush/candidiasis - Continue taking bactrim (sulfamethoxazole-trimethoprim) twice per day for four days - Continue taking all other home medications as prescribed - Follow-up with your PCP within 1 week of discharge - Follow-up with your oncologist within 1-2 weeks of discharge - Return to the ED if symptoms worsen or recur Time Spent with Patient Time attestation: Total time spent providing and/or coordinating discharge services: Exam Vital Signs Temp Pulse Resp BP Pulse Ox O2 Del Method O2 Flow Rate 98.8 F 107 H 28 H 122/80 95 Nasal Cannula 2 01/14/25 08:00 01/14/25 08:00 01/14/25 08:00 01/14/25 08:00 01/14/25 08:00 01/14/25 08:00 01/14/25 08:00 Narrative Exam General: alert and oriented x 3, answering questions appropriately, fatigued HEENT: poor dentition, improvement in stomatitis and oral thrush, NC/AT, mucous membranes moist, bilateral sclera anicteric Cardiovascular: tachycardic, regular rhythm, S1/S2 present, no murmurs appreciated Pulmonary: Diminished left-sided lung sounds, clear to auscultation on right Abdominal: soft, non-distended, no rebound/guarding, normal bowel sounds present Musculoskeletal: LUE edema, 0/5 strength in LUE Skin: warm and dry, intact, no rashes Discharge Plan Plan Patient Disposition: Xfer Skilled Nsg Fac (SNF) Disposition Comment: Hospitalist to admit Care Plan Goals: - Continue taking fluconazole oral suspension daily for another 14 days for oral thrush/candidiasis - Continue taking bactrim (sulfamethoxazole-trimethoprim) twice per day for four days - Continue taking all other home medications as prescribed - Follow-up with your PCP within 1 week of discharge - Follow-up with your oncologist within 1-2 weeks of discharge - Return to the ED if symptoms worsen or recur Prescriptions/Referrals Prescriptions/Med Rec: New sulfamethoxazole-trimethoprim 800-160 mg Tablet 1 tab PO BID 4 Days Qty: 8 0RF fluconazole 40 mg/mL suspension for reconstitution 222 mg PO QDAY 14 Days Qty: 77.7 0RF Continued esomeprazole magnesium [Nexium] 40 mg Capsule,Delayed Release(Dr/Ec) 40 mg PO QDAY losartan 25 mg Tablet 50 mg PO QDAY Calcium 600 + D(3) 600 mg calcium- 200 unit Capsule 1 cap PO QDAY levetiracetam 500 mg tablet 1,000 mg PO Q12H Patient Comments: TAKE 2 TABLETS BY MOUTH TWICE A DAY FOR 90 DAYS gabapentin 300 mg capsule 300 mg PO QDAY Patient Comments: TAKE 1 CAPSULE BY MOUTH THREE TIMES A DAY oxycodone 5 mg tablet 5 mg PO Q6H Patient Comments: TAKE 1 TO 2 TABLETS BY MOUTH 4 TIMES A DAY NEEDED ondansetron 8 mg tablet,disintegrating 8 mg PO Q8H PRN (Reason: nausea and vomiting) Patient Comments: DISSOLVE 1 TABLET ON THE TONGUE EVERY 8 HOURS NEEDED FOR NAUSEA Referrals: Klever Daniel MD [Primary Care Provider] - Patient/Caregiver Discharge Instructions Print Language: Welsh Stand Alone Forms: [employer] Award Info., Patient Portal Info Letter Discharge Order Discharge Orders: Discharge (Routine); Ordered 01/14/25 Ordered By: Bhavin Castillo Quality Discharge Quality Measures VTE prophylaxis Attestestation MD Attestation I reviewed labs, imaging, EKG, home medications and prior available records. Face to face evaluation was performed by me. I have personally examined the patient and discussed assessment and plan with the IM team. I reviewed the resident note and agree with the plan with exceptions as below. Neutropenic fever ESBL E. coli Klebsiella bacteremia Breast cancer with metastasis Oral thrush Continue Bactrim till 01/17 Consulted oncology: Recommended Neupogen. Monitor CBC Platelet level improved. Continue to monitor Fluconazole for thrush Pending authorization for discharge
--- NOTE | 2025-01-14 15:09 | PC.SS ---
SS follow up note; Pending auth number at the time, SS was updated by [facility] from [employer].
[2025-01-14] MEDS: MELATONIN 3 MG TABLET PO (20:20)
[2025-01-14] MEDS: traZODone HCL 50 MG TABLET PO (20:20)
[2025-01-14] MEDS: ACETAMINOPHEN 325 MG TABLET 650 MG PO (23:48)
[2025-01-15] VITALS (9 sets, daily range): BP systolic 113–140; BP diastolic 67–87; PULSE 86–105; RESP 16–30; TEMP 36.4–37.2; O2SAT 93–97; BMI 28.9; BMI 12.0
[2025-01-15 05:50] LABS: Basophils % (Auto) 0 % (0-2.5); Eosinophils % (Auto) 0 % (0-10); Hematocrit 28.5 % (36.0-46.0); Hemoglobin 9.3 g/dL (12.0-16.0); Immature Granulocytes % (Auto) 11 % (0-0); Immature Granulocytes Auto 0.93 Thou/mm3 (0.00-0.00); Lymphocytes # (Auto) 0.2 Thou/mm3 (1.0-4.8); Lymphocytes % (Auto) 2 % (10-50); Mean Corpuscular HGB Conc 32.6 g/dl (31.0-37.0); Mean Corpuscular Hemoglobin 34.7 pg (25.0-35.0); Mean Corpuscular Volume 106 fL (80-100); Monocytes # (Auto) 0.6 Thou/mm3 (0.0-0.8); Monocytes % (Auto) 7 % (0-12); Neutrophils # (Auto) 6.5 Thou/mm3 (1.8-7.7); Neutrophils % (Auto) 79 % (37-80); Nucleated Red Blood Cell # 0.31 Thou/mm3 (0.00-0.00); Nucleated Red Blood Cell % 4 /100 WBC (0); Red Blood Count 2.68 Miln/mm3 (4.00-5.20); White Blood Count 8.2 Thou/mm3 (3.6-11.0)
[2025-01-15 06:18] LABS: Platelet Count 21 Thou/mm3 (140-440)
[2025-01-15 06:28] LABS: Alanine Aminotransferase 11 U/L (10-49); Albumin, Serum 2.1 gm/dL (3.5-5.0); Albumin/Globulin Ratio 0.8 (1.2-2.2); Alkaline Phosphatase 185 U/L (46-116); Anion Gap 5 (7-16); Aspartate Amino Transferase 87 U/L (0-34); BUN/Creatinine Ratio 20 Ratio (12-20); Bilirubin,Total 2.4 mg/dL (0.3-1.2); Blood Urea Nitrogen 8 mg/dL (9-23); Calcium (Corrected) 8.1 mg/dL (8.5-10.1); Carbon Dioxide 25.3 mMol/L (20.0-31.0); Chloride 104 mMol/L (98-107); Creatinine (Component) 0.4 mg/dL (0.6-1.3); Estimated Creatinine Clearance 142.8 mL/min (>60); Globulin 2.7 gm/dL (2.3-3.5); Glucose 115 mg/dL (74-106); Osmolality,Calculated 267 (275-295); Phosphorous 1.3 mg/dL (2.4-5.1); Potassium 4.3 mMol/L (3.4-5.1); Sodium 134 mMol/L (136-145); Total Protein 4.8 gm/dL (5.7-8.2); eGFR > 60 See Note
[2025-01-15 06:41] LABS: Calcium 6.6 mg/dL (8.3-10.6)
[2025-01-15] MEDS: levETIRAcetam INJ 100 MG/ML VIAL 5ML 1000 MG IVP ×2 (08:40→21:37)
[2025-01-15] MEDS: CALCIUM CARBONATE 600 MG TABLET PO ×2 (08:41→21:35)
[2025-01-15] MEDS: THIAMINE INJ 100 MG/ML VIAL 2 ML IVP (08:41)
[2025-01-15] MEDS: FLUCONAZOLE/NS 200 MG IVPB 200 MG/100 ML BAG 100 MG IV (08:41)
[2025-01-15] MEDS: TRIMETHOPRIM/SULFA 160/800 DS TABLET 1 TAB PO ×2 (08:41→21:35)
[2025-01-15] MEDS: MG HYD/AL HYD/SIME (Maalox Reg) SUSP 30 ML UDC 6 ML PO ×4 (08:42→21:36)
[2025-01-15] MEDS: LIDOCAINE VISCOUS 2% 15 ML UDC 4 ML PO ×4 (08:42→21:36)
[2025-01-15] MEDS: POT PHOS 15 mMol in NS 250 ML 15 MMOL/250 ML BAG 62.5 MMOL IV ×2 (09:58→14:23)
--- NOTE | 2025-01-15 10:29 | PD.IDPROG ---
Subjective Subjective Interval history: was on both topical and systemic rx for thrush. will stop flucon and leave on bactrim. Exam Vital Signs Temp Pulse Resp BP Pulse Ox O2 Del Method O2 Flow Rate 97.5 F 98 16 120/71 97 Nasal Cannula 2 01/15/25 08:00 01/15/25 09:14 01/15/25 09:14 01/15/25 08:00 01/15/25 09:14 01/15/25 08:00 01/15/25 09:14 Narrative Exam limited eval Objective - Internal Medicine Labs 01/15/25 05:15 01/15/25 05:15 Labs: Laboratory Results - last 24 hr 01/15/25 05:15 WBC 8.2 RBC 2.68 L Hgb 9.3 L Hct 28.5 L MCV 106 H MCH 34.7 MCHC 32.6 RDW Std Deviation 55.0 H Plt Count 21 L* D Neut % (Auto) 79 Lymph % (Auto) 2 L [place] % (Auto) 7 Eos % (Auto) 0 Baso % (Auto) 0 Neut # (Auto) 6.5 Lymph # (Auto) 0.2 L [place] # (Auto) 0.6 Eos # (Auto) 0.0 Baso # (Auto) 0.0 Immature Gran # (Auto) 0.93 H Absolute Nucleated RBC 0.31 H Immature Gran % 11 H Nucleated RBC % 4 H Sodium 134 L Potassium 4.3 Chloride 104 Carbon Dioxide 25.3 Anion Gap 5 L BUN 8 L Creatinine 0.4 L Estim Creat Clear Calc 142.8 eGFR > 60 BUN/Creatinine Ratio 20 Glucose 115 H Calculated Osmolality 267 L Calcium 6.6 L* Corrected Calcium 8.1 L Phosphorus 1.3 L Magnesium 2.0 Total Bilirubin 2.4 H AST 87 H ALT 11 Alkaline Phosphatase 185 H Total Protein 4.8 L Albumin 2.1 L Globulin 2.7 Albumin/Globulin Ratio 0.8 L ABG Interpretation ABG results: 01/07/25 10:14 VBG pH 7.57 VBG pCO2 30 L VBG pO2 100 H VBG Base Excess 5 H Assessment & Plan A&P Narrative neutropenic sepsis. bc with kleb metastatic breast CA. prognosis per oncology topical rx ok for thrush she is only 59 yoa. that may play into the rx plan for her bactrim ds 1 po bid thru 01/17 planned. counts up. fever gone. will see again Monday if she has trouble swallowing, gi eval and/or swallow eval prudent. Time Spent With Patient Time: Total time spent is greater than 50% in coordination of care (as documented) at patient's floor/unit and/or counseling patient:
[2025-01-15 10:48] LABS: Slide Review Platelets confirmed
--- NOTE | 2025-01-15 14:23 | PC.SS ---
SS follow up note; SS contacted Tigre from [facility] and she informed SS that at the time authorization is still under Clinical Review.
[2025-01-15] MEDS: DEXAMETHASONE SOD PHOS INJ 4 MG/ML VIAL 40 MG IV (15:38)
[2025-01-15] MEDS: PANTOPRAZOLE INJ 40 MG VIAL IV (15:38)
--- NOTE | 2025-01-15 18:06 | ESPR_ITS ---
<Statement entered by Bhavin Castillo MD - 01/15/25 18:44> Patient was seen and examined at the bedside. No acute overnight events were reported. Patient had a drop in platelet count therefore oncologist, Dr. Olmstead was contacted who recommended to start dexamethasone 40 mg IV once daily for 4 days and concomitant administration of Protonix. She also recommended to start CBC twice weekly. Next CBC to be followed at 9 PM. We will continue to monitor platelets and clinical signs of bleeding as well. Family was updated regarding plan. Currently pending on authorization for PT as well. All labs and orders were reviewed. I saw and examined the patient, and I agree with current management stated by Dr Sierra MD,PGY1. Plan of care was discussed with the attending physician and resident physician. Disclaimer: Despite multiple revisions, due to the dictation software being used, the document bellow may not be free of grammatical errors including phonetic/typographic errors. However, this does not deter from our commitment to providing health care in the patient's best interest in mind. Dr. Shelley MD, PGY 2 Documentation for date of: 01/15/25 Subjective Subjective Interval history: Lakshmi Salazar is a 59-year-old female with a past medical history of right-sided (ER/AZ positive, HER2-low) breast cancer diagnosed 2012 s/p right-sided mastectomy with metastasis to brain, liver, lung, and bone who presented to the ED on 01/07 for generalized weakness and decreased PO intake and odynophagia in setting of oral ulcers. She does not endorse any abdominal pain, N/V/D but does say she has had fever, chills, and foul-smelling urine without dysuria. Of note, she had recently finished her last round of radiation therapy with Dr. Bradford and started on chemotherapy with Dr. Olmstead last week. During this time, it has been noted that patient has had increased swelling in her LUE as well as decreased function for the past three months. Patient admitted for further management of neutropenic fever in setting of recent chemoradiation therapy. 01/09: No acute overnight events noted. Seen and examined at bedside with family present. Patient states that she was able to drink some coffee without difficulty but still endorses pain in her oral cavity otherwise, does not endorse worsening shortness of breath, any fevers, chills, nausea, vomiting. Also spoke to family and informed them on current plans and clinical status. 01/10: Patient seen and examined at bedside this morning. No acute overnight events. Vitals, labs reviewed. Mildly tachycardic and SBP in 140s, but with patient without any acute complaints. States she occasionally does have some pain but it is of 3?4, and has not required any Dilaudid. Will resume p.o. oxycodone as she is increasing oral intake, as her oral thrush is improving. She states she has not slept and would like something for sleep tonight. Labs significant for increase in WBC, ANC 4402. Will give filgrastim for 1 more day. Urine culture returned ESBL, initially started on Zosyn, ID consulted appreciate recs. Platelets remain low, will continue to monitor. Electrolytes repleted. Family at bedside updated with plan. 01/11: No acute overnight events noted. Seen and examined at bedside in telemetry. Upon evaluation, patient appeared to be more more lethargic compared to prior and was not able to answer questions regarding orientation. Per nursing staff, mentation started to decline on 01/10 from p.m. onwards. Patient eyes are open to pain but was able to localize. She has not been able to sleep for the last couple of days and will start trazodone at bedtime. 01/12: No acute overnight events noted. Seen and examined at bedside in telemetry and patient appears to be much more alert and oriented (self, birthdate, place) compared to yesterday. She states that she was able to rest overnight and did not need trazodone. Otherwise, she has no other complaints and has been able to tolerate p.o. liquids and dysphagia 1 diet. Anticipate discharge within the next 24 to 48 hours, pending PT evaluation. 01/13: No acute overnight events noted. Seen and examined at bedside in telemetry with family present. She remains oriented to self, birthdate, place compared to a couple of days ago. She continues to tolerate oral liquids and dysphagia 1 diet. Seen by physical therapy who recommended short-term rehab placement for further PT. However, will keep patient for another 24 hours to monitor platelets. 01/15: No acute overnight events noted. Seen and examined at bedside and states that she feels much better compared to day prior regarding pain. She appears more energetic and remains alert and orientated x3. States that she feels happy she is able to at least take a few bites of her breakfast without experiencing any pain. Insurance authorization remains pending for SNF. In meantime, platelets remain low and consulted oncology over the phone, currently suspecting ITP. Will start decadeon daily and monitor CBC twice daily. Exam Vital Signs Temp Pulse Resp BP Pulse Ox O2 Del Method O2 Flow Rate 98.7 F 100 16 115/73 96 Nasal Cannula 2 01/15/25 12:00 01/15/25 12:00 01/15/25 12:00 01/15/25 12:01/15/25 12:01/15/25 12:01/15/25 12:00 Narrative Exam General: alert and oriented x 3, answering questions appropriately, fatigued HEENT: poor dentition, improvement in stomatitis and oral thrush, chemoradiation-induced alopecia Cardiovascular: tachycardic, regular rhythm, S1/S2 present, no murmurs appreciated Pulmonary: Diminished left-sided lung sounds, clear to auscultation on right Abdominal: soft, non-distended, no rebound/guarding, normal bowel sounds present Musculoskeletal: LUE edema, 0/5 strength in LUE Skin: warm and dry, intact, no rashes Objective Labs 01/16/25 04:37 01/16/25 04:37 Labs: Laboratory Results - last 24 hr 01/15/25 05:15 WBC 8.2 RBC 2.68 L Hgb 9.3 L Hct 28.5 L MCV 106 H MCH 34.7 MCHC 32.6 RDW Std Deviation 55.0 H Plt Count 21 L* D Neut % (Auto) 79 Lymph % (Auto) 2 L [place] % (Auto) 7 Eos % (Auto) 0 Baso % (Auto) 0 Neut # (Auto) 6.5 Lymph # (Auto) 0.2 L [place] # (Auto) 0.6 Eos # (Auto) 0.0 Baso # (Auto) 0.0 Immature Gran # (Auto) 0.93 H Absolute Nucleated RBC 0.31 H Immature Gran % 11 H Nucleated RBC % 4 H Sodium 134 L Potassium 4.3 Chloride 104 Carbon Dioxide 25.3 Anion Gap 5 L BUN 8 L Creatinine 0.4 L Estim Creat Clear Calc 142.8 eGFR > 60 BUN/Creatinine Ratio 20 Glucose 115 H Calculated Osmolality 267 L Calcium 6.6 L* Corrected Calcium 8.1 L Phosphorus 1.3 L Magnesium 2.0 Total Bilirubin 2.4 H AST 87 H ALT 11 Alkaline Phosphatase 185 H Total Protein 4.8 L Albumin 2.1 L Globulin 2.7 Albumin/Globulin Ratio 0.8 L Misc Test Result Platelets confirmed ABG Interpretation ABG results: 01/07/25 10:14 VBG pH 7.57 VBG pCO2 30 L VBG pO2 100 H VBG Base Excess 5 H Quality Measures Quality Measures VTE prophylaxis Assessment & Plan Assessment Current Active Medications: Generic Name Dose Route Start Last Admin Trade Name Freq PRN Reason Stop Dose Admin Acetaminophen 650 mg 01/07/25 17:32 01/14/25 23:48 Acetaminophen 325 Mg Tablet PO 02/06/25 17:31 650 mg Q6H PRN Administration PAIN 1-3 OR FEVER > 100.4 Al Hydrox/Mg Hydrox/Simethicone 6 ml 01/10/25 18:00 01/15/25 12:43 Mg Hyd/Al Hyd/Matt (Maalox Reg) Susp 30 Ml Udc PO 02/09/25 17:59 6 ml PCHS ERNESTO Administration Calcium Carbonate 600 mg 01/15/25 09:00 01/15/25 08:41 Calcium Carbonate 600 Mg Tablet PO 02/14/25 08:59 600 mg BID ERNESTO Administration Dexamethasone Sodium Phosphate 40 mg 01/15/25 14:45 01/15/25 15:38 Dexamethasone Sod Phos Inj 4 Mg/Ml Vial IV 01/19/25 14:44 40 mg QDAY ERNESTO Administration Protocol Multivitamins/Minerals 10 ml/ 1,010 mls @ 75 mls/hr 01/11/25 09:00 01/15/25 09:58 Dextrose IV 02/10/25 08:59 75 mls/hr .[id number] ERNESTO Administration Levetiracetam 1,000 mg 01/07/25 21:00 01/15/25 08:40 Levetiracetam Inj 100 Mg/Ml Vial 5ml IVP 02/06/25 20:59 1,000 mg Q12HR ERNESTO Administration Lidocaine HCl 4 ml 01/10/25 18:00 01/15/25 12:44 Lidocaine Viscous 2% 15 Ml Udc PO 02/09/25 17:59 4 ml PCHS ERNESTO Administration Melatonin 3 mg 01/10/25 21:00 01/14/25 20:20 Melatonin 3 Mg Tablet PO 02/09/25 20:59 3 mg HS ERNESTO Administration Metoclopramide HCl 10 mg 01/07/25 17:32 Metoclopramide 5 Mg Tablet PO 02/06/25 17:31 Q6H PRN NAUSEA OR VOMITING Protocol Ondansetron HCl 4 mg 01/08/25 00:17 01/08/25 06:26 Ondansetron Inj 2 Mg/Ml Inj 2 Ml IV 02/07/25 00:16 4 mg Q6HR PRN Administration NAUSEA OR VOMITING Protocol Pantoprazole Sodium 40 mg 01/15/25 14:40 01/15/25 15:38 Pantoprazole Inj 40 Mg Vial IV 02/14/25 14:39 40 mg QDAY ERNESTO Administration Thiamine HCl 100 mg 01/08/25 15:00 01/15/25 08:41 Thiamine Inj 100 Mg/Ml Vial 2 Ml IVP 02/07/25 14:59 100 mg QDAY ERNESTO Administration Trazodone HCl 50 mg 01/11/25 21:00 01/14/25 20:20 Trazodone Hcl 50 Mg Tablet PO 02/10/25 20:59 50 mg HS ERNESTO Administration Trimethoprim/Sulfamethoxazole 1 tab 01/10/25 21:00 01/15/25 08:41 Trimethoprim/Sulfa 160/800 Ds Tablet PO 01/17/25 20:59 1 tab BID ERNESTO Administration Plan Lakshmi Salazar is a 59-year-old female with a past medical history of right-sided (ER/AZ positive, HER2-low) breast cancer diagnosed 2012 s/p right-sided mastectomy with metastasis to brain, liver, lung, and bone who was admitted on 01/07 for management of neutropenic fever in setting of recent chemoradiation therapy. #Severe sepsis in setting of neutropenic fever, resolved #? Cholecystitis vs PNA vs UTI vs GNR bacteremia #History of breast cancer status post chemoradiation therapy On presentation: ANC 80, Pro-Esequiel 4.2, LA 3, Tmax 101.9, tachycardia, tachypnea and hypotensive 78/54. WBC uptrending from 4.7 to 15.7. Repeat CXR continues to showed extensive left- sided opacity. ? Blood culture 01/07: Klebsiella in 2/2 bottles ? Blood culture 01/09: NGTD ? Urine culture 01/07: ESBL E. coli ? ID consulted, appreciate recs: Bactrim ? Case discussed with patient's oncologist: filgrastim 300 mcg SC daily (01/08- 01/10) #Pancytopenia #Macrocytic anemia #Thrombocytopenia, ? ITP 2 units platelets transfused at admission B12 749. RBC folate 763. ? Twice daily CBC ? Decadron 40 mg IV daily #Mucositis in setting of chemotherapy, improving #Oral thrush, improving ? Fluconazole 200 mg IV daily ? Maalox with lidocaine PO PCHS with goal of aiding in tolerating diet #Failure to thrive #Electrolyte abnormalities #Hyperosmolar hypernatremia, resolved #Hypophosphatemia #Hypocalcemia ? Calcium carbonate 600 mg p.o. BID #Hyperbilirubinemia, improving #Coagulopathy Abdominal US: Concerning for acute cholecystitis with large CBD in setting of elevated T. bili. MRCP: thickened gallbladder wall and no CBD dilatation. Initially had TTP in RUQ with positive Silva sign, 01/10 no abdominal tenderness => will hold off on general surgery consult at this time and continue to monitor patient's symptoms/exam. #Left upper extremity swelling ? Doppler negative for DVT #Seizures ? Home Keppra 1000 mg twice daily #History of hypertension ? Hold home antihypertensives given low BP #Chronic pain, likely secondary to bone mets ? Oxycodone changed to IV Dilaudid 0.25 mg every 3 hours #Subclinical hyperthyroidism TSH 0.26, free T4 within normal limits ? Possibly in the setting of chemo => will advise patient to repeat thyroid panel in 4 to 6 weeks #Lactic acidosis, improved Received 7 L IVF in ED. Hospital management: Disposition: Neutropenic fever resolved, monitoring platelets, pending insurance auth Fluids: D5W with vitamins Diet: Dysphagia 1; p.o. intake is increasing Lines: PIV DVT prophylaxis: SCDs GI prophylaxis: Pantoprazole IV [place]: Placed CODE STATUS: full code ----- Plan discussed with attending physician Dr. Mon and senior resident physician Dr. Shelley Esquivel MD PGY-1 Internal Medicine Attending Provider Attestation/Addendum I reviewed labs, imaging, EKG, home medications and prior available records. Face to face evaluation was performed by me. I have personally examined the patient and discussed assessment and plan with the IM team. I reviewed the resident note and agree with the plan with exceptions as below. Neutropenic fever ESBL E. coli Klebsiella bacteremia Breast cancer with metastasis Oral thrush Thrombocytopenia Continue Bactrim till 01/17 Consulted oncology: Recommended Neupogen. Monitor CBC every 12 hours Platelet level dropped again. Discussed with oncology: Recommended starting IV corticosteroids. Monitor for bleeding. Monitor platelet level Fluconazole for thrush
[2025-01-15] MEDS: ACETAMINOPHEN 325 MG TABLET 650 MG PO (19:14)
[2025-01-15] MEDS: MELATONIN 3 MG TABLET PO (21:35)
[2025-01-15] MEDS: traZODone HCL 50 MG TABLET PO (21:35)
[2025-01-15 21:37] LABS: Basophils % (Auto) 0 % (0-2.5); Eosinophils % (Auto) 0 % (0-10); Hematocrit 29.7 % (36.0-46.0); Hemoglobin 10.2 g/dL (12.0-16.0); Immature Granulocytes % (Auto) 7 % (0-0); Immature Granulocytes Auto 0.63 Thou/mm3 (0.00-0.00); Lymphocytes # (Auto) 0.2 Thou/mm3 (1.0-4.8); Lymphocytes % (Auto) 2 % (10-50); Mean Corpuscular HGB Conc 34.3 g/dl (31.0-37.0); Mean Corpuscular Hemoglobin 34.9 pg (25.0-35.0); Mean Corpuscular Volume 102 fL (80-100); Monocytes # (Auto) 0.2 Thou/mm3 (0.0-0.8); Monocytes % (Auto) 2 % (0-12); Neutrophils # (Auto) 7.9 Thou/mm3 (1.8-7.7); Neutrophils % (Auto) 89 % (37-80); Nucleated Red Blood Cell # 0.18 Thou/mm3 (0.00-0.00); Nucleated Red Blood Cell % 2 /100 WBC (0); RDW Standard Deviation 52.1 fL (36.4-46.3); Red Blood Count 2.92 Miln/mm3 (4.00-5.20); White Blood Count 8.9 Thou/mm3 (3.6-11.0)
[2025-01-15 21:44] LABS: Platelet Count 24 Thou/mm3 (140-440); Slide Review Platelets confirmed
[2025-01-15 22:05] LABS: Band Neutrophils (Manual) 6 % (0-6); Metamyelocytes (Manual) 1 % (0-0); Myelocytes (Manual) 1 % (0-0); Neutrophils (Manual) 92 % (50-70)
[2025-01-15 22:10] LABS: Lymphocytes (Manual) 0 % (20-44)
[2025-01-16] VITALS (8 sets, daily range): BP systolic 114–150; BP diastolic 73–85; PULSE 88–100; RESP 20–32; TEMP 36.1–36.9; O2SAT 95–97; BMI 27.8; BMI 12.0
[2025-01-16] MEDS: ACETAMINOPHEN 325 MG TABLET 650 MG PO ×3 (03:32→21:35)
[2025-01-16 05:45] LABS: Basophils % (Auto) 0 % (0-2.5); Eosinophils % (Auto) 0 % (0-10); Hemoglobin 10.5 g/dL (12.0-16.0); Immature Granulocytes % (Auto) 5 % (0-0); Immature Granulocytes Auto 0.39 Thou/mm3 (0.00-0.00); Lymphocytes # (Auto) 0.3 Thou/mm3 (1.0-4.8); Lymphocytes % (Auto) 4 % (10-50); Mean Corpuscular HGB Conc 33.9 g/dl (31.0-37.0); Mean Corpuscular Hemoglobin 35.1 pg (25.0-35.0); Mean Corpuscular Volume 104 fL (80-100); Monocytes # (Auto) 0.1 Thou/mm3 (0.0-0.8); Monocytes % (Auto) 2 % (0-12); Neutrophils # (Auto) 6.6 Thou/mm3 (1.8-7.7); Neutrophils % (Auto) 89 % (37-80); Nucleated Red Blood Cell # 0.11 Thou/mm3 (0.00-0.00); Nucleated Red Blood Cell % 2 /100 WBC (0); RDW Standard Deviation 52.1 fL (36.4-46.3); Red Blood Count 2.99 Miln/mm3 (4.00-5.20); White Blood Count 7.4 Thou/mm3 (3.6-11.0)
[2025-01-16 05:57] LABS: Platelet Count 26 Thou/mm3 (140-440)
[2025-01-16 05:58] LABS: Slide Review Platelets confirmed
[2025-01-16 06:23] LABS: Albumin, Serum 2.3 gm/dL (3.5-5.0); Anion Gap 6 (7-16); BUN/Creatinine Ratio 25 Ratio (12-20); Blood Urea Nitrogen 10 mg/dL (9-23); Calcium 7.5 mg/dL (8.3-10.6); Calcium (Corrected) 8.9 mg/dL (8.5-10.1); Carbon Dioxide 24.3 mMol/L (20.0-31.0); Chloride 105 mMol/L (98-107); Creatinine (Component) 0.4 mg/dL (0.6-1.3); Estimated Creatinine Clearance 142.8 mL/min (>60); Glucose 154 mg/dL (74-106); Magnesium 1.9 mg/dL (1.6-2.6); Osmolality,Calculated 272 (275-295); Phosphorous 1.9 mg/dL (2.4-5.1); Potassium 5.4 mMol/L (3.4-5.1); Sodium 135 mMol/L (136-145); eGFR > 60 See Note
[2025-01-16] MEDS: MG HYD/AL HYD/SIME (Maalox Reg) SUSP 30 ML UDC 6 ML PO ×4 (08:53→20:57)
[2025-01-16] MEDS: LIDOCAINE VISCOUS 2% 15 ML UDC 4 ML PO ×4 (08:53→20:58)
[2025-01-16] MEDS: Magnesium Sulfate 2 GM Ivpb 2 GM/50 ML BAG IV (08:54)
[2025-01-16] MEDS: levETIRAcetam INJ 100 MG/ML VIAL 5ML 1000 MG IVP ×2 (08:54→21:17)
[2025-01-16] MEDS: THIAMINE INJ 100 MG/ML VIAL 2 ML IVP (08:54)
[2025-01-16] MEDS: CALCIUM CARBONATE 600 MG TABLET PO ×2 (08:55→20:49)
[2025-01-16] MEDS: DEXAMETHASONE SOD PHOS INJ 4 MG/ML VIAL 40 MG IV (08:55)
[2025-01-16] MEDS: PANTOPRAZOLE INJ 40 MG VIAL IV (08:55)
[2025-01-16] MEDS: TRIMETHOPRIM/SULFA 160/800 DS TABLET 1 TAB PO ×2 (08:56→20:49)
[2025-01-16 09:51] LABS: Potassium 5.1 mMol/L (3.4-5.1)
--- NOTE | 2025-01-16 11:24 | ESPR_ITS ---
<Statement entered by Bhavin Castillo MD - 01/16/25 15:32> Patient was seen and examined at the bedside. No acute overnight events were reported. She endorsed some pain in the oral cavity and was not able to eat and drink. GI has been consulted for further evaluation. Additionally, insurance authorization is pending. Oncologist recommended to continue dexamethasone 40 mg for 3 more days and will repeat CBC at night as well. Platelet mildly improved. Will also perform CT chest to evaluate for any other pathology. Electrolytes were repleted. Hemoglobin stable at 10.5. Platelet count improved from 24->26. Patient continues to require oxygen around 3 L. All labs and orders were reviewed. I saw and examined the patient, and I agree with current management stated by Dr Sierra MD,PGY1. Plan of care was discussed with the attending physician and resident physician. Disclaimer: Despite multiple revisions, due to the dictation software being used, the document bellow may not be free of grammatical errors including phonetic/typographic errors. However, this does not deter from our commitment to providing health care in the patient's best interest in mind. Dr. Jonathan MD, PGY 2 Documentation for date of: 01/16/25 Subjective Subjective Interval history: Lakshmi Salazar is a 59-year-old female with a past medical history of right-sided (ER/SD positive, HER2-low) breast cancer diagnosed 2012 s/p right-sided mastectomy with metastasis to brain, liver, lung, and bone who presented to the ED on 01/07 for generalized weakness and decreased PO intake and odynophagia in setting of oral ulcers. She does not endorse any abdominal pain, N/V/D but does say she has had fever, chills, and foul-smelling urine without dysuria. Of note, she had recently finished her last round of radiation therapy with Dr. Bradford and started on chemotherapy with Dr. Olmstead last week. During this time, it has been noted that patient has had increased swelling in her LUE as well as decreased function for the past three months. Patient admitted for further management of neutropenic fever in setting of recent chemoradiation therapy. 01/09: No acute overnight events noted. Seen and examined at bedside with family present. Patient states that she was able to drink some coffee without difficulty but still endorses pain in her oral cavity otherwise, does not endorse worsening shortness of breath, any fevers, chills, nausea, vomiting. Also spoke to family and informed them on current plans and clinical status. 01/10: Patient seen and examined at bedside this morning. No acute overnight events. Vitals, labs reviewed. Mildly tachycardic and SBP in 140s, but with patient without any acute complaints. States she occasionally does have some pain but it is of 3?4, and has not required any Dilaudid. Will resume p.o. oxycodone as she is increasing oral intake, as her oral thrush is improving. She states she has not slept and would like something for sleep tonight. Labs significant for increase in WBC, ANC 4402. Will give filgrastim for 1 more day. Urine culture returned ESBL, initially started on Zosyn, ID consulted appreciate recs. Platelets remain low, will continue to monitor. Electrolytes repleted. Family at bedside updated with plan. 01/11: No acute overnight events noted. Seen and examined at bedside in telemetry. Upon evaluation, patient appeared to be more more lethargic compared to prior and was not able to answer questions regarding orientation. Per nursing staff, mentation started to decline on 01/10 from p.m. onwards. Patient eyes are open to pain but was able to localize. She has not been able to sleep for the last couple of days and will start trazodone at bedtime. 01/12: No acute overnight events noted. Seen and examined at bedside in telemetry and patient appears to be much more alert and oriented (self, birthdate, place) compared to yesterday. She states that she was able to rest overnight and did not need trazodone. Otherwise, she has no other complaints and has been able to tolerate p.o. liquids and dysphagia 1 diet. Anticipate discharge within the next 24 to 48 hours, pending PT evaluation. 01/13: No acute overnight events noted. Seen and examined at bedside in telemetry with family present. She remains oriented to self, birthdate, place compared to a couple of days ago. She continues to tolerate oral liquids and dysphagia 1 diet. Seen by physical therapy who recommended short-term rehab placement for further PT. However, will keep patient for another 24 hours to monitor platelets. 01/15: No acute overnight events noted. Seen and examined at bedside and states that she feels much better compared to day prior regarding pain. She appears more energetic and remains alert and orientated x3. States that she feels happy she is able to at least take a few bites of her breakfast without experiencing any pain. Insurance authorization remains pending for [facility]. In meantime, platelets remain low and consulted oncology over the phone, currently suspecting ITP. Will start decadeon daily and monitor CBC twice daily. 01/16: No acute overnight events noted. Seen and examined at bedside and does not have any new complaints. She does endorse pain in oral activity but not that it is necessarily worse than prior. Denies any fever, chills, N/V, diarrhea. Insurance authorization still pending. Spoke to oncologist, Dr. Olmstead, and will start IVIG and nystatin PO for possible ITP and candidiasis, respectively. Exam Vital Signs Temp Pulse Resp BP Pulse Ox O2 Del Method O2 Flow Rate 97.1 F 89 20 114/76 96 Nasal Cannula 3 01/16/25 08:00 01/16/25 08:00 01/16/25 08:00 01/16/25 08:00 01/16/25 08:00 01/16/25 08:00 01/16/25 04:00 Narrative Exam General: alert and oriented x 3, answering questions appropriately, fatigued HEENT: bright red blood coming from oral cavity to lip, poor dentition, improvement in stomatitis and oral thrush, chemoradiation-induced alopecia Cardiovascular: tachycardic, regular rhythm, S1/S2 present, no murmurs appreciated Pulmonary: Diminished left-sided lung sounds, clear to auscultation on right Abdominal: soft, non-distended, no rebound/guarding, normal bowel sounds present Musculoskeletal: LUE edema, 0/5 strength in LUE Skin: warm and dry, intact, no rashes Objective Labs 01/17/25 04:43 01/17/25 04:43 Labs: Laboratory Results - last 24 hr 01/15/25 01/16/25 01/16/25 21:16 04:37 09:09 WBC 8.9 7.4 RBC 2.92 L 2.99 L Hgb 10.2 L 10.5 L Hct 29.7 L 31.0 L MCV 102 H 104 H MCH 34.9 35.1 H MCHC 34.3 33.9 RDW Std Deviation 52.1 H 52.1 H Plt Count 24 L* 26 L* Neut % (Auto) 89 H 89 H Lymph % (Auto) 2 L 4 L [place] % (Auto) 2 2 Eos % (Auto) 0 0 Baso % (Auto) 0 0 Neut # (Auto) 7.9 H 6.6 Lymph # (Auto) 0.2 L 0.3 L [place] # (Auto) 0.2 0.1 Eos # (Auto) 0.0 0.0 Baso # (Auto) 0.0 0.0 Immature Gran # (Auto) 0.63 H 0.39 H Absolute Nucleated RBC 0.18 H 0.11 H Immature Gran % 7 H 5 H Neutrophils % (Manual) 92 H Metamyelocytes % 1 H Myelocytes % 1 H Nucleated RBC % 2 H 2 H Band Neutrophils 6 Lymphocytes (Manual) 0 L Sodium 135 L Potassium 5.4 H D 5.1 Chloride 105 Carbon Dioxide 24.3 Anion Gap 6 L BUN 10 Creatinine 0.4 L Estim Creat Clear Calc 142.8 eGFR > 60 BUN/Creatinine Ratio 25 H Glucose 154 H Calculated Osmolality 272 L Calcium 7.5 L Corrected Calcium 8.9 Phosphorus 1.9 L Magnesium 1.9 Albumin 2.3 L Misc Test Result Platelets confirmed Platelets confirmed ABG Interpretation ABG results: 01/07/25 10:14 VBG pH 7.57 VBG pCO2 30 L VBG pO2 100 H VBG Base Excess 5 H Quality Measures Quality Measures VTE prophylaxis Assessment & Plan Assessment Current Active Medications: Generic Name Dose Route Start Last Admin Trade Name Freq PRN Reason Stop Dose Admin Acetaminophen 650 mg 01/07/25 17:32 01/16/25 08:56 Acetaminophen 325 Mg Tablet PO 02/06/25 17:31 650 mg Q6H PRN Administration PAIN 1-3 OR FEVER > 100.4 Al Hydrox/Mg Hydrox/Simethicone 6 ml 01/10/25 18:00 01/16/25 08:53 Mg Hyd/Al Hyd/Matt (Maalox Reg) Susp 30 Ml Udc PO 02/09/25 17:59 6 ml PCHS ERNESTO Administration Calcium Carbonate 600 mg 01/15/25 09:00 01/16/25 08:55 Calcium Carbonate 600 Mg Tablet PO 02/14/25 08:59 600 mg BID ERNESTO Administration Dexamethasone Sodium Phosphate 40 mg 01/15/25 14:45 01/16/25 08:55 Dexamethasone Sod Phos Inj 4 Mg/Ml Vial IV 01/19/25 14:44 40 mg QDAY ERNESTO Administration Protocol Levetiracetam 1,000 mg 01/07/25 21:00 01/16/25 08:54 Levetiracetam Inj 100 Mg/Ml Vial 5ml IVP 02/06/25 20:59 1,000 mg Q12HR ERNESTO Administration Lidocaine HCl 4 ml 01/10/25 18:00 01/16/25 08:53 Lidocaine Viscous 2% 15 Ml Udc PO 02/09/25 17:59 4 ml PCHS ERNESTO Administration Melatonin 3 mg 01/10/25 21:00 01/15/25 21:35 Melatonin 3 Mg Tablet PO 02/09/25 20:59 3 mg HS ERNESTO Administration Metoclopramide HCl 10 mg 01/07/25 17:32 Metoclopramide 5 Mg Tablet PO 02/06/25 17:31 Q6H PRN NAUSEA OR VOMITING Protocol Ondansetron HCl 4 mg 01/08/25 00:17 01/08/25 06:26 Ondansetron Inj 2 Mg/Ml Inj 2 Ml IV 02/07/25 00:16 4 mg Q6HR PRN Administration NAUSEA OR VOMITING Protocol Pantoprazole Sodium 40 mg 01/15/25 14:40 01/16/25 08:55 Pantoprazole Inj 40 Mg Vial IV 02/14/25 14:39 40 mg QDAY ERNESTO Administration Potassium Phos/Sodium Phos 1 packet 01/16/25 10:55 Naph,Kp Mbdb 1 Packet (1.5 Gm) PO 02/15/25 10:54 BID ERNESTO Thiamine HCl 100 mg 01/08/25 15:00 01/16/25 08:54 Thiamine Inj 100 Mg/Ml Vial 2 Ml IVP 02/07/25 14:59 100 mg QDAY ERNESTO Administration Trazodone HCl 50 mg 01/11/25 21:00 01/15/25 21:35 Trazodone Hcl 50 Mg Tablet PO 02/10/25 20:59 50 mg HS ERNESTO Administration Trimethoprim/Sulfamethoxazole 1 tab 01/10/25 21:00 01/16/25 08:56 Trimethoprim/Sulfa 160/800 Ds Tablet PO 01/17/25 20:59 1 tab BID ERNESTO Administration Plan Lakshmi Salazar is a 59-year-old female with a past medical history of right-sided (ER/SD positive, HER2-low) breast cancer diagnosed 2012 s/p right-sided mastectomy with metastasis to brain, liver, lung, and bone who was admitted on 01/07 for management of neutropenic fever in setting of recent chemoradiation therapy. #Severe sepsis in setting of neutropenic fever, resolved #? Cholecystitis vs PNA vs UTI vs GNR bacteremia #History of breast cancer status post chemoradiation therapy On presentation: ANC 80, Pro-Esequiel 4.2, LA 3, Tmax 101.9, tachycardia, tachypnea and hypotensive 78/54. WBC has responded well to filgrastim and currently 7.4 and has not had any fevers since admission. ? Blood culture 01/07: Klebsiella in 2/2 bottles ? Blood culture 01/09: NGTD ? Urine culture 01/07: ESBL E. coli ? ID consulted, appreciate recs ? Bactrim until 01/17 ? 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 RBC folate 763. Decadron 40 mg IV daily (01/15-01/16) Communicated with oncologist, Dr. Olmstead, and recommended IVIG 1 g/kg for possible ITP. ? IVIG 1 g/kg for 1-2 days, pending platelet response ? Twice daily CBC #Mucositis in setting of chemotherapy, improving #Oral thrush, improving #Odynophagia Fluconazole discontinued yesterday by ID. Oral thrush and mucositis improving on fluconazole and possible esophagitis and will continue with fluconazole. On 01/16, bright red blood noted from oral cavity coming out of left side of lip. Fluconazole discontinued. Communicated with oncologist, Dr. Olmstead, and recommended nystatin. ? Maalox with lidocaine PO PCHS with goal of aiding in tolerating diet ? Nystatin 5 mL PO QID ? GI consulted for odynophagia, appreciate recommendations ? Follow-up CT chest #Failure to thrive #Electrolyte abnormalities #Hyperosmolar hypernatremia, resolved #Hypophosphatemia #Hypocalcemia Previously on D5W with multivitamins due to decreased PO intake but was stopped as patient has received ~22 L of IVF since admission. ? Speech therapy consulted to evaluate maximum diet that patient can tolerate ? RD consulted to change diet to something patient will prefer to increase PO intake ? Calcium carbonate 600 mg p.o. BID ? Neutra-Phos packet PO BID for hypophosphatemia #Hyperbilirubinemia, improving #Coagulopathy Abdominal US: Concerning for acute cholecystitis with large CBD in setting of elevated T. bili. MRCP: thickened gallbladder wall and no CBD dilatation. Initially had TTP in RUQ with positive Silva sign, 01/10 no abdominal tenderness => will hold off on general surgery consult at this time and continue to monitor patient's symptoms/exam. #Left upper extremity swelling ? Doppler negative for DVT #Seizures ? Home Keppra 1000 mg twice daily #History of hypertension ? Hold home antihypertensives given low BP #Chronic pain, likely secondary to bone mets ? Oxycodone changed to IV Dilaudid 0.25 mg every 3 hours #Subclinical hyperthyroidism TSH 0.26, free T4 within normal limits ? Possibly in the setting of chemo => will advise patient to repeat thyroid panel in 4 to 6 weeks #Lactic acidosis, improved Received 7 L IVF in ED. Hospital management: Disposition: Neutropenic fever resolved, monitoring platelets, pending insurance auth Fluids: D5W with vitamins discontinued Diet: Dysphagia 1; p.o., pending speech and RD evaluations to update Lines: PIV DVT prophylaxis: SCDs GI prophylaxis: Pantoprazole IV [place]: Placed CODE STATUS: full code ----- Plan discussed with attending physician Dr. Mon and senior resident physician Dr. Jonathan Esquivel MD PGY-1 Internal Medicine Attending Provider Attestation/Addendum I reviewed labs, imaging, EKG, home medications and prior available records. Face to face evaluation was performed by me. I have personally examined the patient and discussed assessment and plan with the IM team. I reviewed the resident note and agree with the plan with exceptions as below. Acute hypoxic respiratory failure Neutropenic fever ESBL E. coli Klebsiella bacteremia Breast cancer with metastasis Oral thrush Thrombocytopenia Ordered chest x-ray that showed severe left pulmonary disease. Ordered CT scan of the chest for better visualization Patient has worsening dysphagia and odynophagia. Continue fluconazole. Consulted GI for possible EGD Ordered speech evaluation Continue Bactrim till 01/17 Consulted oncology: Recommended Neupogen. Monitor CBC every 12 hours Platelet level dropped again. Discussed with oncology: Recommended starting IV corticosteroids. Monitor for bleeding. Monitor platelet level: Improved slightly
--- NOTE | 2025-01-16 11:30 | PC.SS ---
SS follow up note; Auth has been obtained by [facility]. Patient will discharge in 2-3 days.
--- NOTE | 2025-01-16 12:12 | XR_ITS ---
Examination: AP chest single view Technique one AP portable semiupright chest single view Exam date and time: January 16, 2025 1237 hours Comparison January 11, 2025 INDICATIONS: Shortness of breath, neutropenic fever today, diagnosis right breast cancer, pulmonary mass left lower lobe 5.[address] chest September 04, 2024 FINDINGS: Extensive opacity left hemithorax again noted No significant cardiac enlargement Right internal jugular Port-A-Cath tip right atrium Mild opacity diffusely in the right lung IMPRESSION: Mild diffuse right lung pneumonia Consider CT chest post intravenous contrast follow-up to further assess the extensive left hemithorax opacity
[2025-01-16] MEDS: NAPH,KPH MBDB 1 PACKET (1.5 GM) PO ×2 (12:15→20:49)
[2025-01-16] MEDS: FLUCONAZOLE/NS 200 MG IVPB 200 MG/100 ML BAG 100 MG IV (14:42)
[2025-01-16] MEDS: NYSTATIN SUSP 5 ML UDC PO ×2 (17:50→21:06)
[2025-01-16 18:04] LABS: Basophils % (Auto) 0 % (0-2.5); Eosinophils % (Auto) 0 % (0-10); Hematocrit 31.1 % (36.0-46.0); Hemoglobin 10.8 g/dL (12.0-16.0); Immature Granulocytes % (Auto) 2 % (0-0); Immature Granulocytes Auto 0.23 Thou/mm3 (0.00-0.00); Lymphocytes # (Auto) 0.3 Thou/mm3 (1.0-4.8); Lymphocytes % (Auto) 3 % (10-50); Mean Corpuscular HGB Conc 34.7 g/dl (31.0-37.0); Mean Corpuscular Hemoglobin 35.1 pg (25.0-35.0); Mean Corpuscular Volume 101 fL (80-100); Monocytes # (Auto) 0.3 Thou/mm3 (0.0-0.8); Monocytes % (Auto) 3 % (0-12); Neutrophils # (Auto) 10.2 Thou/mm3 (1.8-7.7); Neutrophils % (Auto) 93 % (37-80); Nucleated Red Blood Cell # 0.12 Thou/mm3 (0.00-0.00); Nucleated Red Blood Cell % 1 /100 WBC (0); RDW Standard Deviation 50.7 fL (36.4-46.3); Red Blood Count 3.08 Miln/mm3 (4.00-5.20)
[2025-01-16 19:15] LABS: Platelet Count 40 Thou/mm3 (140-440)
[2025-01-16 20:22] LABS: Slide Review Platelets confirmed
[2025-01-16] MEDS: MELATONIN 3 MG TABLET PO (20:49)
[2025-01-17] VITALS: BP 123/66; PULSE 87; PULSE 88; RESP 22; TEMP 36.8; O2SAT 96
[2025-01-17 04:00] VITALS: BP 152/88; PULSE 53; PULSE 88; RESP 20; TEMP 36.4; O2SAT 100
[2025-01-17] MEDS: ACETAMINOPHEN 325 MG TABLET 650 MG PO (04:49)
[2025-01-17] MEDS: NYSTATIN SUSP 5 ML UDC PO ×4 (05:00→20:45)
[2025-01-17 06:00] VITALS: BMI 27.3
[2025-01-17 06:03] LABS: Basophils % (Auto) 0 % (0-2.5); Eosinophils % (Auto) 0 % (0-10); Hematocrit 28.8 % (36.0-46.0); Hemoglobin 9.8 g/dL (12.0-16.0); Immature Granulocytes % (Auto) 2 % (0-0); Immature Granulocytes Auto 0.17 Thou/mm3 (0.00-0.00); Lymphocytes # (Auto) 0.2 Thou/mm3 (1.0-4.8); Lymphocytes % (Auto) 2 % (10-50); Mean Corpuscular Hemoglobin 34.6 pg (25.0-35.0); Mean Corpuscular Volume 102 fL (80-100); Monocytes # (Auto) 0.4 Thou/mm3 (0.0-0.8); Monocytes % (Auto) 3 % (0-12); Neutrophils # (Auto) 9.8 Thou/mm3 (1.8-7.7); Neutrophils % (Auto) 93 % (37-80); Nucleated Red Blood Cell # 0.14 Thou/mm3 (0.00-0.00); Nucleated Red Blood Cell % 1 /100 WBC (0); RDW Standard Deviation 50.7 fL (36.4-46.3); Red Blood Count 2.83 Miln/mm3 (4.00-5.20); White Blood Count 10.5 Thou/mm3 (3.6-11.0)
[2025-01-17 06:13] LABS: Platelet Count 44 Thou/mm3 (140-440)
[2025-01-17 06:50] LABS: Alanine Aminotransferase 14 U/L (10-49); Albumin, Serum 1.9 gm/dL (3.5-5.0); Albumin/Globulin Ratio 0.4 (1.2-2.2); Alkaline Phosphatase 191 U/L (46-116); Anion Gap 5 (7-16); Aspartate Amino Transferase 78 U/L (0-34); BUN/Creatinine Ratio 28 Ratio (12-20); Bilirubin,Total 1.6 mg/dL (0.3-1.2); Blood Urea Nitrogen 11 mg/dL (9-23); Calcium 6.9 mg/dL (8.3-10.6); Calcium (Corrected) 8.6 mg/dL (8.5-10.1); Carbon Dioxide 24.2 mMol/L (20.0-31.0); Chloride 104 mMol/L (98-107); Creatinine (Component) 0.4 mg/dL (0.6-1.3); Estimated Creatinine Clearance 138.9 mL/min (>60); Globulin 4.8 gm/dL (2.3-3.5); Glucose 182 mg/dL (74-106); Magnesium 1.8 mg/dL (1.6-2.6); Osmolality,Calculated 270 (275-295); Phosphorous 1.6 mg/dL (2.4-5.1); Potassium 5.2 mMol/L (3.4-5.1); Sodium 133 mMol/L (136-145); Total Protein 6.7 gm/dL (5.7-8.2); eGFR > 60 See Note
[2025-01-17 08:00] VITALS: BP 136/81; PULSE 90; RESP 19; TEMP 36.3; O2SAT 96
[2025-01-17] MEDS: oxyCODONE/APAP 5/325 TABLET 1 TAB PO (08:35)
[2025-01-17] MEDS: TRIMETHOPRIM/SULFA 160/800 DS TABLET 1 TAB PO ×2 (08:37→20:45)
[2025-01-17] MEDS: LIDOCAINE VISCOUS 2% 15 ML UDC 4 ML PO ×4 (08:37→21:31)
[2025-01-17] MEDS: CALCIUM CARBONATE 600 MG TABLET PO ×2 (08:37→20:45)
[2025-01-17] MEDS: MG HYD/AL HYD/SIME (Maalox Reg) SUSP 30 ML UDC 6 ML PO ×4 (08:38→21:31)
[2025-01-17] MEDS: PANTOPRAZOLE INJ 40 MG VIAL IV (08:39)
[2025-01-17] MEDS: levETIRAcetam INJ 100 MG/ML VIAL 5ML 1000 MG IVP ×2 (08:39→20:43)
[2025-01-17] MEDS: THIAMINE INJ 100 MG/ML VIAL 2 ML IVP (08:39)
[2025-01-17 09:30] LABS: Slide Review Platelets confirmed
--- NOTE | 2025-01-17 09:32 | PD.IDPROG ---
Subjective Subjective Interval history: finish planned bactrim. no objection to outpt f/u with others. I am unable to see her Exam Vital Signs Temp Pulse Resp BP Pulse Ox O2 Del Method O2 Flow Rate 97.3 F 90 19 136/81 H 96 Nasal Cannula 3 01/17/25 08:00 01/17/25 08:00 01/17/25 08:00 01/17/25 08:00 01/17/25 08:00 01/17/25 08:00 01/17/25 08:00 Narrative Exam limited eval Objective - Internal Medicine Labs 01/17/25 04:43 01/17/25 04:43 Labs: Laboratory Results - last 24 hr 01/16/25 01/16/25 01/17/25 09:09 17:38 04:43 WBC 11.0 D 10.5 RBC 3.08 L 2.83 L Hgb 10.8 L 9.8 L Hct 31.1 L 28.8 L MCV 101 H 102 H MCH 35.1 H 34.6 MCHC 34.7 34.0 RDW Std Deviation 50.7 H 50.7 H Plt Count 40 L D 44 L Neut % (Auto) 93 H 93 H Lymph % (Auto) 3 L 2 L [place] % (Auto) 3 3 Eos % (Auto) 0 0 Baso % (Auto) 0 0 Neut # (Auto) 10.2 H 9.8 H Lymph # (Auto) 0.3 L 0.2 L [place] # (Auto) 0.3 0.4 Eos # (Auto) 0.0 0.0 Baso # (Auto) 0.0 0.0 Immature Gran # (Auto) 0.23 H 0.17 H Absolute Nucleated RBC 0.12 H 0.14 H Immature Gran % 2 H 2 H Nucleated RBC % 1 H 1 H Sodium 133 L Potassium 5.1 5.2 H Chloride 104 Carbon Dioxide 24.2 Anion Gap 5 L BUN 11 Creatinine 0.4 L Estim Creat Clear Calc 138.9 eGFR > 60 BUN/Creatinine Ratio 28 H Glucose 182 H Calculated Osmolality 270 L Calcium 6.9 L Corrected Calcium 8.6 Phosphorus 1.6 L Magnesium 1.8 Total Bilirubin 1.6 H D AST 78 H ALT 14 Alkaline Phosphatase 191 H Total Protein 6.7 Albumin 1.9 L Globulin 4.8 H Albumin/Globulin Ratio 0.4 L Misc Test Result Platelets confirmed Platelets confirmed ABG Interpretation ABG results: 01/07/25 10:14 VBG pH 7.57 VBG pCO2 30 L VBG pO2 100 H VBG Base Excess 5 H Assessment & Plan A&P Narrative neutropenic sepsis. bc with kleb metastatic breast CA. prognosis per oncology topical rx ok for thrush she is only 59 yoa. that may play into the rx plan for her bactrim ds 1 po bid thru 01/23 planned. counts up. fever gone. will see again PRN if she has trouble swallowing, gi eval and/or swallow eval prudent. will see again prn. Time Spent With Patient Time: Total time spent is greater than 50% in coordination of care (as documented) at patient's floor/unit and/or counseling patient:
--- NOTE | 2025-01-17 11:38 | PD.RESPRO ---
Documentation for date of: 01/17/25 Subjective Subjective Interval history: Patient seen and examined at bedside this morning. No acute overnight events, although patient was refusing chest PT and CT scan. At bedside, family is present. Patient is stating she is getting tired and does not want any further interventions. Goals of care discussion was had, with patient and family in agreement of transitioning patient to hospice at home. SS notified. Vitals and labs reviewed. Platelet increase noted, mild hyperkalemia. Additionally, went over POLST with patient in presence of ROLL COATING MACHINE OPERATOR, and patient would like to be made DNR/DNI, with comfort focused measures in the event she were to suffer cardiac arrest. Copy of POLST made for patient's chart, and original given to patient. Exam Vital Signs Temp Pulse Resp BP Pulse Ox O2 Del Method O2 Flow Rate 97.3 F 90 19 136/81 H 96 Nasal Cannula 3 01/17/25 08:00 01/17/25 08:00 01/17/25 08:00 01/17/25 08:00 01/17/25 08:00 01/17/25 08:00 01/17/25 08:00 Narrative Exam General: alert and oriented x 3, answering questions appropriately, fatigued, cachetic, appears chronically ill HEENT: bright red blood coming from oral cavity to lip, poor dentition, improvement in stomatitis and oral thrush, chemoradiation-induced alopecia Cardiovascular: tachycardic, regular rhythm, S1/S2 present, no murmurs appreciated Pulmonary: Decreased left-sided lung sounds, clear to auscultation on right Abdominal: soft, non-distended, no rebound/guarding, normal bowel sounds present Musculoskeletal: LUE edema, 0/5 strength in LUE Skin: warm and dry, intact, no rashes Objective Labs 01/18/25 04:40 01/18/25 04:40 Labs: Laboratory Results - last 24 hr 01/16/25 01/17/25 17:38 04:43 WBC 11.0 D 10.5 RBC 3.08 L 2.83 L Hgb 10.8 L 9.8 L Hct 31.1 L 28.8 L MCV 101 H 102 H MCH 35.1 H 34.6 MCHC 34.7 34.0 RDW Std Deviation 50.7 H 50.7 H Plt Count 40 L D 44 L Neut % (Auto) 93 H 93 H Lymph % (Auto) 3 L 2 L Lamb % (Auto) 3 3 Eos % (Auto) 0 0 Baso % (Auto) 0 0 Neut # (Auto) 10.2 H 9.8 H Lymph # (Auto) 0.3 L 0.2 L Lamb # (Auto) 0.3 0.4 Eos # (Auto) 0.0 0.0 Baso # (Auto) 0.0 0.0 Immature Gran # (Auto) 0.23 H 0.17 H Absolute Nucleated RBC 0.12 H 0.14 H Immature Gran % 2 H 2 H Nucleated RBC % 1 H 1 H Sodium 133 L Potassium 5.2 H Chloride 104 Carbon Dioxide 24.2 Anion Gap 5 L BUN 11 Creatinine 0.4 L Estim Creat Clear Calc 138.9 eGFR > 60 BUN/Creatinine Ratio 28 H Glucose 182 H Calculated Osmolality 270 L Calcium 6.9 L Corrected Calcium 8.6 Phosphorus 1.6 L Magnesium 1.8 Total Bilirubin 1.6 H D AST 78 H ALT 14 Alkaline Phosphatase 191 H Total Protein 6.7 Albumin 1.9 L Globulin 4.8 H Albumin/Globulin Ratio 0.4 L Misc Test Result Platelets confirmed Platelets confirmed ABG Interpretation ABG results: 01/07/25 10:14 VBG pH 7.57 VBG pCO2 30 L VBG pO2 100 H VBG Base Excess 5 H Quality Measures Quality Measures VTE prophylaxis Assessment & Plan Assessment Current Active Medications: Generic Name Dose Route Start Last Admin Trade Name Freq PRN Reason Stop Dose Admin Acetaminophen 650 mg 01/07/25 17:32 01/17/25 04:49 Acetaminophen 325 Mg Tablet PO 02/06/25 17:31 650 mg Q6H PRN Administration PAIN 1-3 OR FEVER > 100.4 Al Hydrox/Mg Hydrox/Simethicone 6 ml 01/10/25 18:00 01/17/25 08:38 Mg Hyd/Al Hyd/Matt (Maalox Reg) Susp 30 Ml Udc PO 02/09/25 17:59 6 ml PCHS ERNESTO Administration Calcium Carbonate 600 mg 01/15/25 09:00 01/17/25 08:37 Calcium Carbonate 600 Mg Tablet PO 02/14/25 08:59 600 mg BID ERNESTO Administration Hydromorphone HCl 0.5 mg 01/17/25 08:07 Hydromorphone Inj 2 Mg/Ml Vial IVP 01/22/25 08:06 Q3HR PRN PAIN SCALE 7-10 (Severe Levetiracetam 1,000 mg 01/07/25 21:00 01/17/25 08:39 Levetiracetam Inj 100 Mg/Ml Vial 5ml IVP 02/06/25 20:59 1,000 mg Q12HR ERNESTO Administration Lidocaine HCl 4 ml 01/10/25 18:00 01/17/25 08:37 Lidocaine Viscous 2% 15 Ml Udc PO 02/09/25 17:59 4 ml PCHS ERNESTO Administration Melatonin 3 mg 01/10/25 21:00 01/16/25 20:49 Melatonin 3 Mg Tablet PO 02/09/25 20:59 3 mg HS ERNESTO Administration Metoclopramide HCl 10 mg 01/07/25 17:32 Metoclopramide 5 Mg Tablet PO 02/06/25 17:31 Q6H PRN NAUSEA OR VOMITING Protocol Nystatin 5 ml 01/16/25 17:15 01/17/25 05:00 Nystatin Susp 5 Ml Udc PO 01/23/25 17:14 5 ml QID ERNESTO Administration Ondansetron HCl 4 mg 01/08/25 00:17 01/08/25 06:26 Ondansetron Inj 2 Mg/Ml Inj 2 Ml IV 02/07/25 00:16 4 mg Q6HR PRN Administration NAUSEA OR VOMITING Protocol Oxycodone/Acetaminophen 1 tab 01/17/25 08:07 01/17/25 08:35 Oxycodone/Apap 5/325 Tablet PO 01/22/25 08:06 1 tab Q4HR PRN Administration PAIN SCALE 4-6 (Moderate Pantoprazole Sodium 40 mg 01/15/25 14:40 01/17/25 08:39 Pantoprazole Inj 40 Mg Vial IV 02/14/25 14:39 40 mg QDAY ERNESTO Administration Potassium Phos/Sodium Phos 1 packet 01/16/25 10:55 01/16/25 20:49 Naph,[facility] Mbdb 1 Packet (1.5 Gm) PO 02/15/25 10:54 1 packet BID ERNESTO Administration Thiamine HCl 100 mg 01/08/25 15:00 01/17/25 08:39 Thiamine Inj 100 Mg/Ml Vial 2 Ml IVP 02/07/25 14:59 100 mg QDAY ERNESTO Administration Trazodone HCl 50 mg 01/11/25 21:00 01/16/25 20:59 Trazodone Hcl 50 Mg Tablet PO 02/10/25 20:59 Not Given HS ERNESTO Trimethoprim/Sulfamethoxazole 1 tab 01/10/25 21:00 01/17/25 08:37 Trimethoprim/Sulfa 160/800 Ds Tablet PO 01/23/25 20:59 1 tab BID ERNESTO Administration Plan Lakshmi Salazar is a 59-year-old female with a past medical history of right-sided (ER/WA positive, HER2-low) breast cancer diagnosed 2012 s/p right-sided mastectomy with metastasis to brain, liver, lung, and bone who was admitted on 01/07 for management of neutropenic fever in setting of recent chemoradiation therapy. #Goals of care Patient ultimately decided on hospice at home, and signed POLST for DNR/DNI. CODE STATUS changed. #Severe sepsis in setting of neutropenic fever, resolved #? Cholecystitis vs PNA vs UTI vs GNR bacteremia #History of breast cancer status post chemoradiation therapy On presentation: ANC 80, Pro-Esequiel 4.2, LA 3, Tmax 101.9, tachycardia, tachypnea and hypotensive 78/54. WBC has responded well to filgrastim and currently 7.4 and has not had any fevers since admission. ? Blood culture 01/07: Klebsiella in 2/2 bottles ? Blood culture 01/09: NGTD ? Urine culture 01/07: ESBL E. coli ? ID consulted, appreciate recs ? Bactrim until 01/17 ? 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 RBC folate 763. Communicated with oncologist, Dr. Olmstead, and recommended IVIG 1 g/kg for possible ITP. ? IVIG 1 g/kg for 1-2 days, pending platelet response ? Twice daily CBC => will discontinue as patient is transitioning to home hospice #Mucositis in setting of chemotherapy, improving #Esophageal candidiasis, improving #Odynophagia Fluconazole discontinued yesterday by ID. Esopahgeal candidiasis/Oral thrush and mucositis improving on fluconazole. Communicated with oncologist, Dr. Olmstead, and recommended nystatin. ? Maalox with lidocaine PO PCHS with goal of aiding in tolerating diet => continue on DC as it helps patient with odynophagia ? Nystatin 5 mL PO QID ? GI consulted for odynophagia, appreciate recommendations ? Follow-up CT chest => cancelled as patient does not want further intervention #Failure to thrive #Electrolyte abnormalities #Hyperosmolar hypernatremia, resolved #Hypophosphatemia #Hypocalcemia Previously on D5W with multivitamins due to decreased PO intake but was stopped as patient has received ~22 L of IVF since admission. -CaCO3 600mg BID -Patient transitioning to hospice at home => can consider starting dronabinol vs megace #Hyperbilirubinemia, improving #Coagulopathy Abdominal US: Concerning for acute cholecystitis with large CBD in setting of elevated T. bili. MRCP: thickened gallbladder wall and no CBD dilatation. Initially had TTP in RUQ with positive Silva sign, 01/10 no abdominal tenderness => will hold off on general surgery consult at this time and continue to monitor patient's symptoms/exam. #Left upper extremity swelling ? Doppler negative for DVT #Seizures ? Home Keppra 1000 mg twice daily #History of hypertension ? Hold home antihypertensives given low BP #Chronic pain, likely secondary to bone mets ? Oxycodone changed to IV Dilaudid 0.25 mg every 3 hours - Will defer pain regimen to home hospice agency #Subclinical hyperthyroidism TSH 0.26, free T4 within normal limits ? Possibly in the setting of chemo => patient transitioning to hospice at home #Lactic acidosis, improved Received 7 L IVF in ED. Hospital management: Disposition: Home with hospice once set up Fluids: None Diet: Dysphagia 1 Lines: PIV DVT prophylaxis: SCDs GI prophylaxis: Pantoprazole IV Noble: Placed CODE STATUS: DNR/DNI, POLST signed Patient seen and care discussed with my attending Dr. Mon. Palmer Ceron MD PGY-3 Attending Provider Attestation/Addendum I reviewed labs, imaging, EKG, home medications and prior available records. Face to face evaluation was performed by me. I have personally examined the patient and discussed assessment and plan with the IM team. I reviewed the resident note and agree with the plan with exceptions as below. Acute hypoxic respiratory failure Neutropenic fever ESBL E. coli Klebsiella bacteremia Breast cancer with metastasis Oral thrush Thrombocytopenia Goals of care discussion/counseling Ordered chest x-ray that showed severe left pulmonary disease. Ordered CT scan of the chest for better visualization: Patient refused Patient has worsening dysphagia and odynophagia. Continue fluconazole. Consulted GI for possible EGD: Patient refused Finished Bactrim on 01/17 Consulted oncology: Recommended IV corticosteroid for thrombocytopenia Discussed goals of care with the patient and her family as she was refusing further testing and given her significant decline, advanced malignancy and multiple hospital complications. Decision was made to transition to home with hospice. See event note. sorting livestock worker was notified
[2025-01-17 12:00] VITALS: BP 157/89; PULSE 89; PULSE 90; RESP 16; TEMP 36.4; O2SAT 96
--- NOTE | 2025-01-17 14:27 | PC.SS ---
SS follow up note; SS was contacted nc Dr. Castillo that family and patient would like to pursue hospice services. SS met with patient at bedside and patient's sister, Miriam, SS presented Hospice agencies, however patient reported they did not have a prefrence, [facility]. SS contacted Shahana [phone]. SS informed her that family wishes to have patient discharge tomorrow. Shahana reported she would contact patient's sister, Miriam to arrange DME delivery. SS will stand by for furthter needs.
[2025-01-17 16:00] VITALS: BP 138/80; PULSE 81; PULSE 89; RESP 19; TEMP 36.4; O2SAT 97
--- NOTE | 2025-01-17 16:55 | PC.SS ---
POLST form completed. Patient code status DNR. Copy of POLST form placed in patient's chart. Original provided to the patient.
[2025-01-17 17:01] LABS: Basophils % (Auto) 0 % (0-2.5); Eosinophils % (Auto) 0 % (0-10); Hematocrit 28.7 % (36.0-46.0); Hemoglobin 9.9 g/dL (12.0-16.0); Immature Granulocytes % (Auto) 1 % (0-0); Immature Granulocytes Auto 0.18 Thou/mm3 (0.00-0.00); Lymphocytes # (Auto) 0.3 Thou/mm3 (1.0-4.8); Lymphocytes % (Auto) 2 % (10-50); Mean Corpuscular HGB Conc 34.5 g/dl (31.0-37.0); Mean Corpuscular Volume 101 fL (80-100); Monocytes # (Auto) 0.6 Thou/mm3 (0.0-0.8); Monocytes % (Auto) 4 % (0-12); Neutrophils # (Auto) 12.8 Thou/mm3 (1.8-7.7); Neutrophils % (Auto) 92 % (37-80); Nucleated Red Blood Cell # 0.13 Thou/mm3 (0.00-0.00); Nucleated Red Blood Cell % 1 /100 WBC (0); RDW Standard Deviation 51.2 fL (36.4-46.3); Red Blood Count 2.83 Miln/mm3 (4.00-5.20); White Blood Count 13.9 Thou/mm3 (3.6-11.0)
[2025-01-17 17:10] LABS: Platelet Count 49 Thou/mm3 (140-440)
[2025-01-17 18:22] LABS: Slide Review Platelets confirmed
[2025-01-17 20:00] VITALS: BP 149/81; PULSE 85; RESP 19; TEMP 36.7; O2SAT 97
--- NOTE | 2025-01-17 20:01 | PD.IMCONS ---
HPI Data of Consult Requesting Physician: Caesar Mon MD Primary Care Provider: Klever Daniel MD Consult Narrative Reason for consult: Odynophagia History of present illness: 59 years old female I have been asked to evaluate her for odynophagia She has undergone chemotherapy for the right breast carcinoma ER/MD positive HER2 positive low count She has neutropenia fever sepsis and mucosal ulceration and Tiffanie esophagitis Initially on Diflucan which did not help much and after consultation with her oncologist has been switched to nystatin She appears very weak And there is a discussion ongoing to make her comfort care as patient decided not to undergo any invasive workup cc:: cc: Caesar Mon MD Review of Systems Review of Systems Systems Reviewed: All systems reviewed, normal except as documented Past Medical History Surgical History OTHER SURGICAL HX: Sepsis Fever Metastatic stage IV right breast carcinoma undergoing chemotherapy Seizure disorder Lactic acidosis Meds Home Medications and Allergies Home Medications ?Medication ?Instructions ?Recorded ?Confirmed ?Type calcium 600 mg (as 1 cap PO QDAY 01/07/19 01/07/25 History carbonate)-vitamin D3 5 mcg (200 unit) capsule (Calcium 600 + D(3)) esomeprazole magnesium 40 mg 40 mg PO QDAY 01/07/19 01/07/25 History capsule,delayed release (Nexium) losartan 25 mg tablet 50 mg PO QDAY 01/07/19 01/07/25 History gabapentin 300 mg capsule 300 mg PO QDAY 01/07/25 01/07/25 History levetiracetam 500 mg tablet 1,000 mg PO Q12H 01/07/25 01/07/25 History ondansetron 8 mg disintegrating 8 mg PO Q8H PRN nausea and vomiting 01/07/25 01/07/25 History tablet oxycodone 5 mg tablet 5 mg PO Q6H 01/07/25 01/07/25 History Allergies Allergy/AdvReac Type Severity Reaction Status Date / Time No Known Allergies Allergy Verified 03/25/21 10:39 Exam Vital Signs Temp Pulse Resp BP Pulse Ox O2 Del Method O2 Flow Rate 97.6 F 89 19 138/80 H 97 Nasal Cannula 3 01/17/25 16:00 01/17/25 16:00 01/17/25 16:00 01/17/25 16:00 01/17/25 16:00 01/17/25 16:00 01/17/25 16:00 Constitutional Comments: Chronically ill-appearing Weak Routine Respiratory Exam Comments: Scattered rhonchi Routine Abdominal Exam Comments: Soft nontender Results Labs 01/17/25 16:51 01/17/25 04:43 Labs: Short CBC 01/17/25 01/17/25 Range/Units 04:43 16:51 WBC 10.5 13.9 H (3.6-11.0) Thou/mm3 Hgb 9.8 L 9.9 L (12.0-16.0) g/dL Hct 28.8 L 28.7 L (36.0-46.0) % Plt Count 44 L 49 L (140-440) Thou/mm3 BMP 01/17/25 04:43 Sodium 133 L Potassium 5.2 H Chloride 104 Carbon Dioxide 24.2 BUN 11 Creatinine 0.4 L Glucose 182 H Calcium 6.9 L Liver Function 01/17/25 Range/Units 04:43 Total Bilirubin 1.6 H D (0.3-1.2) mg/dL AST 78 H (0-34) U/L ALT 14 (10-49) U/L Alkaline Phosphatase 191 H (46-116) U/L Albumin 1.9 L (3.5-5.0) gm/dL ABG Interpretation ABG results: 01/07/25 10:14 VBG pH 7.57 VBG pCO2 30 L VBG pO2 100 H VBG Base Excess 5 H Assessment and Plan Additional Assessment & Plan Additional Plan: # Odynophagia due to mucositis chemotherapy-induced with possibly oral candidiasis and esophageal candidiasis Continue oral nystatin swish and swallow 3 times a day No need for any invasive GI workup Treat the patient conservatively Will follow thank you for the opportunity to participate in the care of this patient
[2025-01-17] MEDS: MELATONIN 3 MG TABLET PO (20:45)
[2025-01-17] MEDS: traZODone HCL 50 MG TABLET PO (20:45)
[2025-01-18] VITALS (7 sets, daily range): BP systolic 130–148; BP diastolic 72–83; PULSE 83–99; RESP 16–27; TEMP 36.1–36.6; O2SAT 94–98; BMI 26.9
[2025-01-18] MEDS: NYSTATIN SUSP 5 ML UDC PO ×2 (05:17→11:49)
[2025-01-18 06:06] LABS: Basophils % (Auto) 0 % (0-2.5); Eosinophils % (Auto) 0 % (0-10); Hematocrit 29.9 % (36.0-46.0); Hemoglobin 10.2 g/dL (12.0-16.0); Immature Granulocytes % (Auto) 1 % (0-0); Immature Granulocytes Auto 0.19 Thou/mm3 (0.00-0.00); Lymphocytes # (Auto) 0.4 Thou/mm3 (1.0-4.8); Lymphocytes % (Auto) 3 % (10-50); Mean Corpuscular HGB Conc 34.1 g/dl (31.0-37.0); Mean Corpuscular Hemoglobin 35.1 pg (25.0-35.0); Mean Corpuscular Volume 103 fL (80-100); Monocytes # (Auto) 0.7 Thou/mm3 (0.0-0.8); Monocytes % (Auto) 5 % (0-12); Neutrophils # (Auto) 11.9 Thou/mm3 (1.8-7.7); Neutrophils % (Auto) 90 % (37-80); Nucleated Red Blood Cell # 0.09 Thou/mm3 (0.00-0.00); Nucleated Red Blood Cell % 1 /100 WBC (0); RDW Standard Deviation 52.7 fL (36.4-46.3); Red Blood Count 2.91 Miln/mm3 (4.00-5.20); White Blood Count 13.2 Thou/mm3 (3.6-11.0)
[2025-01-18 06:28] LABS: Alanine Aminotransferase 20 U/L (10-49); Albumin, Serum 1.9 gm/dL (3.5-5.0); Albumin/Globulin Ratio 0.4 (1.2-2.2); Alkaline Phosphatase 193 U/L (46-116); Anion Gap 3 (7-16); Aspartate Amino Transferase 90 U/L (0-34); BUN/Creatinine Ratio 28 Ratio (12-20); Bilirubin,Total 1.6 mg/dL (0.3-1.2); Blood Urea Nitrogen 11 mg/dL (9-23); Calcium 7.2 mg/dL (8.3-10.6); Calcium (Corrected) 8.9 mg/dL (8.5-10.1); Chloride 107 mMol/L (98-107); Creatinine (Component) 0.4 mg/dL (0.6-1.3); Estimated Creatinine Clearance 138.9 mL/min (>60); Globulin 4.5 gm/dL (2.3-3.5); Glucose 106 mg/dL (74-106); Magnesium 1.8 mg/dL (1.6-2.6); Osmolality,Calculated 271 (275-295); Phosphorous 1.8 mg/dL (2.4-5.1); Potassium 5.1 mMol/L (3.4-5.1); Sodium 136 mMol/L (136-145); Total Protein 6.4 gm/dL (5.7-8.2); eGFR > 60 See Note
[2025-01-18 06:45] LABS: Platelet Count 50 Thou/mm3 (140-440)
[2025-01-18 07:18] LABS: Slide Review Platelets confirmed
--- NOTE | 2025-01-18 08:03 | PD.RESDS ---
Planned Discharge Date 01/18/25 DS: Providers Provider Date of admission: 01/07/25 17:29 Primary care physician: Klever Daniel MD Admitting Provider: Madan Suarez DO Attending Provider on Admission: Caesar Mon MD Consults: 01/07/25 17:31 Referral Registered Dietitian Stat Comment: Instructions: Oral ulcers, referral for diet patient can tolerate 01/07/25 21:00 Referral Registered Dietitian Routine Comment: 01/08/25 08:22 Consult to Infectious Diseases Urgent Comment: neutropenic fever Consulting Provider: Bienvenido Salinas 01/12/25 10:10 Referral Physical Therapy Routine Comment: Physician Instructions: Instructions: Assess for home health assessment. 01/16/25 08:17 Referral Speech Therapy Routine Comment: Instructions: Thrush and mucositis secondary to chemoradiation, improving. Please assess max diet patient can tolerate without exacerbating mucositis. 01/16/25 14:12 Consult to Gastroenterology Routine Comment: Consulting Provider: Renee Clarke 01/17/25 10:50 Referral Hospice Urgent Comment: Attending Provider on DC: Palmer Ceron MD Discharging Provider: Palmer Ceron MD DS: Diagnosis Problem List Completed Was Problem List Reviewed/Reconciled?: Yes Hospital Course Hospital Course Hospital course: Patient was a 59-year-old female with history of right-sided ER/MA positive, HER2-low breast cancer 2011, s/p right-sided mastectomy with recurrence/mets to brain/liver/lung/bone who was admitted on 01/07 with neutropenic fever after having chemoradiation in the prior week. Additionally patient had generalized weakness, decreased oral intake and odynophagia in the setting of esophageal candidiasis. There were multiple sources of infection noted including candidiasis, pneumonia, UTI, Klebsiella bacteremia and concern for cholecystitis as noted on imaging. She was started on broad-spectrum antibiotics with vancomycin, cefepime, Flagyl, and fluconazole for candidiasis. ID was consulted and recommended Bactrim based on culture sensitivities, for which she completed the course. Patient's oncologist was consulted and recommended filgrastim as patient's ANC was 24. There was significant improvement in WBC, and filgrastim stopped after 3 days. Over the course of admission, patient's platelet count dropped and she received steroids/IVIG with mild improvement. At this time, patient stated she is feeling tired and a goals of care discussion was had, or patient decided she wanted to forego further treatment. POLST form was signed in the presence of SOLDERER ASSEMBLER. Patient was made DNR/DNI and will be discharged with home hospice. #Severe sepsis in setting of neutropenic fever, resolved #?Cholecystitis #PNA #UTI, ESBL #Klebsiella bacteremia #History of breast cancer status post chemoradiation therapy #Pancytopenia #Macrocytic anemia #Thrombocytopenia #Mucositis in setting of chemotherapy, improving #Oral thrush, improving #Failure to thrive #Electrolyte abnormalities #Hyperosmolar hypernatremia, resolved #Hypophosphatemia #Hypocalcemia #Hyperbilirubinemia, improving #Coagulopathy #Lactic acidosis, improved #Left upper extremity swelling #Seizures #History of hypertension #Chronic pain, likely secondary to bone mets #Subclinical hyperthyroidism #Pleural effusion Patient seen and care discussed with my attending Dr. Mon. Palmer Ceron MD PGY-3 Status at Discharge Cognitive/behavioral status at discharge: AAOx3 Time Spent with Patient Time attestation: Total time spent providing and/or coordinating discharge services: Time spent: Greater than 30 minutes Exam Vital Signs Temp Pulse Resp BP Pulse Ox O2 Del Method O2 Flow Rate 96.9 F 95 24 H 142/72 H 98 Nasal Cannula 3 01/18/25 04:00 01/18/25 07:49 01/18/25 07:49 01/18/25 04:00 01/18/25 07:49 01/18/25 04:00 01/18/25 07:49 Narrative Exam General: alert and oriented x 3, answering questions appropriately, fatigued, cachetic, appears chronically ill HEENT: bright red blood coming from oral cavity to lip, poor dentition, improvement in stomatitis and oral thrush, chemoradiation-induced alopecia Cardiovascular: tachycardic, regular rhythm, S1/S2 present, no murmurs appreciated Pulmonary: Decreased left-sided lung sounds, clear to auscultation on right Abdominal: soft, non-distended, no rebound/guarding, normal bowel sounds present Musculoskeletal: LUE edema, 0/5 strength in LUE Skin: warm and dry, intact, no rashes Discharge Plan Plan Patient Disposition: Home w/HOSPICE Care Plan Goals: - Continue taking fluconazole & nystatin swish-swallow for another 14 days for oral thrush/candidiasis - Continue taking bactrim (sulfamethoxazole-trimethoprim) twice per day for four days - Use lidocaine as needed for mouth sores/pain - Continue taking all other home medications as prescribed - Follow-up with your PCP within 1 week of discharge - Follow-up with your oncologist within 1-2 weeks of discharge Prescriptions/Referrals Prescriptions/Med Rec: New fluconazole 40 mg/mL suspension for reconstitution 222 mg PO QDAY 14 Days Qty: 77.7 0RF nystatin 100,000 unit/mL Suspension 5 ml PO QID 10 Days Qty: 60 1RF Rx Instructions: Swish and swallow melatonin 3 mg Tablet 3 mg PO HS 30 Days Qty: 30 0RF lidocaine HCl 2 % Solution 4 ml PO PCHS 30 Days Qty: 300 0RF Continued esomeprazole magnesium [Nexium] 40 mg Capsule,Delayed Release(Dr/Ec) 40 mg PO QDAY losartan 25 mg Tablet 50 mg PO QDAY Calcium 600 + D(3) 600 mg calcium- 200 unit Capsule 1 cap PO QDAY levetiracetam 500 mg tablet 1,000 mg PO Q12H Patient Comments: TAKE 2 TABLETS BY MOUTH TWICE A DAY FOR 90 DAYS gabapentin 300 mg capsule 300 mg PO QDAY Patient Comments: TAKE 1 CAPSULE BY MOUTH THREE TIMES A DAY oxycodone 5 mg tablet 5 mg PO Q6H Patient Comments: TAKE 1 TO 2 TABLETS BY MOUTH 4 TIMES A DAY NEEDED ondansetron 8 mg tablet,disintegrating 8 mg PO Q8H PRN (Reason: nausea and vomiting) Patient Comments: DISSOLVE 1 TABLET ON THE TONGUE EVERY 8 HOURS NEEDED FOR NAUSEA Referrals: Klever Daniel MD [Primary Care Provider] - Patient/Caregiver Discharge Instructions Discharge Activity: resume usual activities Print Language: Albanian Stand Alone Forms: Romelia Award Info., Patient Portal Info Letter Discharge Order Discharge Orders: Discharge (Routine); Ordered 01/18/25 Ordered By: Palmer Ceron Quality Discharge Quality Measures VTE prophylaxis Attestestation MD Attestation I reviewed labs, imaging, EKG, home medications and prior available records. Face to face evaluation was performed by me. I have personally examined the patient and discussed assessment and plan with the IM team. I reviewed the resident note and agree with the plan with exceptions as below. Acute hypoxic respiratory failure Neutropenic fever ESBL E. coli Klebsiella bacteremia Breast cancer with metastasis Oral thrush Thrombocytopenia Goals of care discussion/counseling Ordered chest x-ray that showed severe left pulmonary disease. Ordered CT scan of the chest for better visualization: Patient refused Patient has worsening dysphagia and odynophagia. Continue fluconazole. Consulted GI for possible EGD: Patient refused Finished Bactrim on 01/17 Consulted oncology: Recommended IV corticosteroid for thrombocytopenia Discussed goals of care with the patient and her family as she was refusing further testing and given her significant decline, advanced malignancy and multiple hospital complications. Decision was made to transition to home with hospice. See event note. canvas worker apprentice was notified Will continue fluconazole and her home medications Outpatient follow-up with PCP and oncology Time spent is 40 minutes. More than 50% of the time was spent on patient education and coordination of care.
[2025-01-18] MEDS: levETIRAcetam INJ 100 MG/ML VIAL 5ML 1000 MG IVP (09:24)
[2025-01-18] MEDS: THIAMINE INJ 100 MG/ML VIAL 2 ML IVP (09:25)
[2025-01-18] MEDS: oxyCODONE/APAP 5/325 TABLET 1 TAB PO (09:25)
[2025-01-18] MEDS: TRIMETHOPRIM/SULFA 160/800 DS TABLET 1 TAB PO (09:25)
[2025-01-18] MEDS: CALCIUM CARBONATE 600 MG TABLET PO (09:25)
[2025-01-18] MEDS: PANTOPRAZOLE INJ 40 MG VIAL IV (09:25)
[2025-01-18] MEDS: LIDOCAINE VISCOUS 2% 15 ML UDC 4 ML PO ×2 (10:25→11:50)
[2025-01-18] MEDS: MG HYD/AL HYD/SIME (Maalox Reg) SUSP 30 ML UDC 6 ML PO ×2 (10:25→11:50)
--- NOTE | 2025-01-18 11:29 | PC.SS ---
Purchase Price Analyst (JOSE) Trinh informed by Senior GME Resident Dr. Ceron that patient is cleared to discharge. SW met with patient at bedside. Patient confirmed discharge plan: return home with [facility]. SW contacted patient's niece, Rosana to discuss time for arrival. Rosana requested 1600. SW contacted [facility] Admission Coordinator, Dawna to discuss arrival time to home. Dawna reported that the nurse would be there at the time of patient's arrival. JOSE contacted [facility] for authorization (reference number: [id number]/authorization code: [id number]). JOSE will schedule transportation for 1600.
--- NOTE | 2025-01-18 14:00 | PC.CC ---
ASW made contact with [facility] regarding patient who reports it had initially been arranged with [facility] but they are out of the area so they re-assigned it to [facility]. Transportation has been arranged with [facility] for 1600.
--- NOTE | 2025-01-18 16:27 | PC.SS ---
SS spoke with medical team confirming pt to discharge with [facility] SS spoke with [facility], confirmed ok to discharge with [facility] SS received call from medical team asking if pt could discharge with [facility]
== END 2025-01-18 16:33 | disposition hospice, home (50) | DRG 720 ==
LOC: SERX 14:21 → SERHOLD 18:10 → S3NX 20:24 → S2NX 01-09 15:19
PROVIDERS: Emergency Medicine; Internal Medicine Infectious Disease; Student in an Organized Health Care Education/Training Program; Admitting Provider Student in an Organized Health Care Education/Training Program; Emergency Provider Emergency Medicine; PCP Family Medicine; Visit Provider Student in an Organized Health Care Education/Training Program
DX: A41.50 Gram-negative sepsis, unspecified (principal); D70.1 Agranulocytosis secondary to cancer chemotherapy; Z17.0 Estrogen receptor positive status [ER+]; Z17.21 Progesterone receptor positive status; Z90.11 Acquired absence of right breast and nipple; C79.31 Secondary malignant neoplasm of brain; I95.9 Hypotension, unspecified; R50.81 Fever presenting with conditions classified elsewhere; D69.59 Other secondary thrombocytopenia; T45.1X5A Adverse effect of antineoplastic and immunosuppressive drugs, initial encounter; I10 Essential (primary) hypertension; Z92.21 Personal history of antineoplastic chemotherapy; Z92.3 Personal history of irradiation; E87.4 Mixed disorder of acid-base balance; M79.89 Other specified soft tissue disorders; R56.9 Unspecified convulsions; D50.9 Iron deficiency anemia, unspecified; G89.29 Other chronic pain; Z17.31 Human epidermal growth factor receptor 2 positive status; N39.0 Urinary tract infection, site not specified; Z85.3 Personal history of malignant neoplasm of breast; C78.7 Secondary malignant neoplasm of liver and intrahepatic bile duct; D53.9 Nutritional anemia, unspecified; C78.00 Secondary malignant neoplasm of unspecified lung; E87.0 Hyperosmolality and hypernatremia; E83.39 Other disorders of phosphorus metabolism; E83.51 Hypocalcemia; Z66 Do not resuscitate; J15.0 Pneumonia due to Klebsiella pneumoniae; J91.8 Pleural effusion in other conditions classified elsewhere; K12.30 Oral mucositis (ulcerative), unspecified; B37.0 Candidal stomatitis; R62.7 Adult failure to thrive; C79.51 Secondary malignant neoplasm of bone; E05.90 Thyrotoxicosis, unspecified without thyrotoxic crisis or storm; D68.9 Coagulation defect, unspecified; D61.818 Other pancytopenia; R65.20 Severe sepsis without septic shock; K81.9 Cholecystitis, unspecified; K12.1 Other forms of stomatitis; C50.919 Malignant neoplasm of unspecified site of unspecified female breast; E87.5 Hyperkalemia
CPT/HCPCS: 36415; 70450; 71045; 76705; 80053; 80061; 80069; 80202; 80307; 80320; 81001; 82140; 82607; 82747; 82803; 83605; 83735; 83880; 84100; 84132; 84145; 84439; 84443; 84484; 85025; 85610; 86703; 86803; 86850; 86900; 86901; 86965; 87040; 87077; 87081; 87086; 87186; 87400; 87634; 87651; 87811; 92610; 93225; 93971; 96360; 96361; 96365; 96366; 96367; 96368; 97163; 99291; J0692; J1100; J1450; J1568; J1953; J2405; J2470; J2543; J3370; J3411; J3475; J3490; J7030; J7040; J7050; J7070; J7120; J7121; J7999; P9035; Q5101; S8037; 74181; A9270; G0480; J1836

== ENCOUNTER 2025-02-15 12:27 | Emergency (ER) | payer MEDICAID, SELFPAY ==
[2025-02-15 12:37] VITALS: BP 110/68; PULSE 97; RESP 16; TEMP 36.5; O2SAT 99; BMI 24.6
--- NOTE | 2025-02-15 12:52 | PD.EDADULT ---
ED General RME/HPI General Chief complaint: Abdominal Pain Stated complaint: CONSTIPATION Time Seen by Provider: 02/15/25 12:47 Arrival date/time: 02/15/25 12:27 RME / HPI RME / HPI narrative: 59-year-old female patient with significant history of breast cancer with mets all over, DNR, hospice, came in for evaluation regarding no bowel movement. Patient had no bowel movement for the last 9 days. Patient denies any vomiting denies any nausea denies any abdominal pain patient is just worried about the bowel movement. Was given by hospice nurse with multiple bowel medications and suppositories with no relief. Related Data Home Medications ?Medication ?Instructions ?Recorded ?Confirmed calcium 600 mg (as 1 cap PO QDAY 01/07/19 01/07/25 carbonate)-vitamin D3 5 mcg (200 unit) capsule (Calcium 600 + D(3)) esomeprazole magnesium 40 mg 40 mg PO QDAY 01/07/19 01/07/25 capsule,delayed release (Nexium) losartan 25 mg tablet 50 mg PO QDAY 01/07/19 01/07/25 gabapentin 300 mg capsule 300 mg PO QDAY 01/07/25 01/07/25 levetiracetam 500 mg tablet 1,000 mg PO Q12H 01/07/25 01/07/25 ondansetron 8 mg disintegrating 8 mg PO Q8H PRN nausea and vomiting 01/07/25 01/07/25 tablet oxycodone 5 mg tablet 5 mg PO Q6H 01/07/25 01/07/25 Previous Rx's ?Medication ?Instructions ?Recorded lidocaine HCl 2 % mucosal solution 4 ml PO PCHS 30 days #300 mL 01/18/25 melatonin 3 mg tablet 3 mg PO HS 30 days #30 tabs 01/18/25 nystatin 100,000 unit/mL oral 5 ml PO QID 10 days #60 mL 01/18/25 suspension peg 3350-electrolytes 236 240 ml PO Q10M PRN constipation 02/15/25 gram-22.74 gram-6.74 gram-5.86 #4,000 mL gram solution (GaviLyte-G) Allergies Allergy/AdvReac Type Severity Reaction Status Date / Time No Known Allergies Allergy Verified 03/25/21 10:39 Review of Systems Review of Systems Narrative Review of Systems: Review of system reviewed and within normal limits except mentioned in HPI ED Exam Narrative Physical exam: VITAL SIGNS: Reviewed. GENERAL APPEARANCE: Alert and interactive, follows commands, no acute distress, cachectic HEAD AND FACE: Non-traumatic. ENT: PERRL, pink conjunctivitis, eyelid no trauma, Mucous membrane moist. NECK: Supple, nontender, no nuchal rigidity. CHEST: No tenderness, no crepitus, no paradoxical movement, no retractions. LUNGS: Clear, well ventilated, symmetric, no rales, no wheezing, no ronchi, no stridor, good breath sounds bilaterally. HEART: Regular rate, regular rhythm, no murmur, no gallops. ABDOMEN: Soft, positive bowel sounds, nondistended, no guarding, nontender, no rebound, no masses, RECTAL: Deferred. GENITAL: Deferred. NEUROLOGICAL: Gross motor function intact sensory function intact, Appropriate for age. MUSCULOSKELETAL: low back nontender, full range of motion. EXTREMITIES: Nontender, full range of motion. SKIN: Color pink, dry, no rash, no lacerations, no abrasions, no contusions. LYMPHATICS: Deferred. Course Quality Measures none Orders Category Date Time Status Fleet [Enema Administration] ONCE Care 02/15/25 12:54 Completed IV [Insert IV] NOW Care 02/15/25 15:00 Completed KUB [XR abdomen 1V] Stat Exams 02/15/25 12:54 Completed HYDROcodone*/APAP 5/325 [[place] 5/325] Med 02/15/25 17:28 Discontinued 1 tab PO X1 ONE Magnesium Citrate Liqd [Citrate of Magnesia Liqd] Med 02/15/25 12:54 Discontinued 300 ml PO X1 ONE Morphine Inj Med 02/15/25 17:38 Discontinued 4 mg IVP X1 ONE Ringers Lactated 1000 ml [Lactated Ringers] 1,000 ml Med 02/15/25 12:54 Discontinued IV 999 mls/hr Vital Signs Vital signs: Vital Signs Temperature 97.7 F 02/15/25 12:37 Pulse Rate 97 02/15/25 12:37 Respiratory Rate 16 02/15/25 12:37 Blood Pressure 110/68 02/15/25 12:37 Pulse Oximetry (%) 99 02/15/25 12:37 Oxygen Delivery Method Nasal Cannula 02/15/25 12:37 Oxygen Flow Rate 6 02/15/25 12:37 Discharge Plan Plan Patient Disposition: HOME (Self Care) Disposition Comment: Stable Prescriptions/Referrals Prescriptions/Med Rec: New peg 3350-electrolytes [GaviLyte-G] 236-22.74-6.74 -5.86 gram recon soln 240 ml PO Q10M PRN (Reason: constipation) Qty: 4000 0RF Rx Instructions: until fecal effluent is clear No Action esomeprazole magnesium [Nexium] 40 mg Capsule,Delayed Release(Dr/Ec) 40 mg PO QDAY losartan 25 mg Tablet 50 mg PO QDAY Calcium 600 + D(3) 600 mg calcium- 200 unit Capsule 1 cap PO QDAY levetiracetam 500 mg tablet 1,000 mg PO Q12H Patient Comments: TAKE 2 TABLETS BY MOUTH TWICE A DAY FOR 90 DAYS gabapentin 300 mg capsule 300 mg PO QDAY Patient Comments: TAKE 1 CAPSULE BY MOUTH THREE TIMES A DAY oxycodone 5 mg tablet 5 mg PO Q6H Patient Comments: TAKE 1 TO 2 TABLETS BY MOUTH 4 TIMES A DAY NEEDED ondansetron 8 mg tablet,disintegrating 8 mg PO Q8H PRN (Reason: nausea and vomiting) Patient Comments: DISSOLVE 1 TABLET ON THE TONGUE EVERY 8 HOURS NEEDED FOR NAUSEA nystatin 100,000 unit/mL Suspension 5 ml PO QID 10 Days Qty: 60 1RF Rx Instructions: Swish and swallow melatonin 3 mg Tablet 3 mg PO HS 30 Days Qty: 30 0RF lidocaine HCl 2 % Solution 4 ml PO PCHS 30 Days Qty: 300 0RF Referrals: Klever Daniel MD [Primary Care Provider] - In 1 week Problem List Clinical Impression: Constipation Patient/Caregiver Discharge Instructions Discharge Activity: activity as tolerated Education Materials: Treating Constipation Additional Instructions: Thank you for the opportunity for serving you today. You are stable for discharged . You are advised to: Follow-up with your PCP in 1 to 2 days Return to ED for worsening of symptoms Increase oral fluids Take medication as prescribed Increase fiber in the diet Print Language: Portuguese Stand Alone Forms: Romelia Award Info., Patient Portal Info Letter PA/[employer]INE [employer]IM[employer] TRAINER Supervising Physician JENNIFER/[employer]INE [employer]IMAL TRAINER Supervising Physician: MD Sh[facility] Patient Acuity Narrative: 59-year-old female patient with significant history of breast cancer with mets all over, DNR, hospice, came in for evaluation regarding no bowel movement. Patient had no bowel movement for the last 9 days. Patient denies any vomiting denies any nausea denies any abdominal pain patient is just worried about the bowel movement. Was given by hospice nurse with multiple bowel medications and suppositories with no relief. Patient received IV fluids, Fleet enema, with small amount of bowel movement. X-ray of the abdomen showed moderate to large amount of stool noted throughout the colon. Patient is not vomiting. Patient will be sent home on [facility]. Medication Administration(s) Medication Administration History Discontinued Medications Hydrocodone Bitart/Acetaminophen (Hydrocodone/Apap 5/325 Tablet) 1 tab PO X1 ONE Stop: 02/15/25 17:29 Last Admin: 02/15/25 18:11 Dose: Not Given Documented By: STACIA Non-Admin Reason: Discontinued Lactated Ringer's (Lactated Ringers) 1,000 mls @ 999 mls/hr IV .Q1H1M ONE Stop: 02/15/25 13:54 Last Infusion: 02/15/25 18:09 Dose: Infused Documented By: Admin: 02/15/25 15:04 Dose: 999 mls/hr Documented By: DO Magnesium Citrate (Magnesium Citrate 300 Ml Btl) 300 ml PO X1 ONE Stop: 02/15/25 12:55 Last Admin: 02/15/25 15:34 Dose: 300 ml Documented By: DO Morphine Sulfate (Morphine Sulf Inj 10 Mg/Ml Vial) 4 mg IVP X1 ONE Stop: 02/15/25 17:39 Last Admin: 02/15/25 18:07 Dose: 4 mg Documented By: STACIA Diagnosis Differential Diagnosis ED Complaint MDM: Abdominal pain, constipation, small bowel obstruction Diagnoses ruled out: Constipation
--- NOTE | 2025-02-15 12:54 | XR_ITS ---
Examination: Abdomen AP single view Technique: AP portable supine abdomen, single view Exam date and time: February 15, 2025 at 1402 hours INDICATIONS: Constipation 9 days. FINDINGS: Moderate to large amounts of stool throughout the colon No obstruction. No free air. Pneumonia and pleural disease left base, recommend PA lateral chest follow-up IMPRESSION: Moderate to large amount of stool throughout the colon
[2025-02-15 13:00] VITALS: PULSE 83; RESP 22; O2SAT 87
[2025-02-15] MEDS: RINGERS LACTATED 1000 ML 1,000 ML 999 ML IV (15:04)
[2025-02-15 15:08] VITALS: BP 130/75; PULSE 95; RESP 16; TEMP 36.9; O2SAT 100
[2025-02-15] MEDS: MAGNESIUM CITRATE 300 ML BTL PO (15:34)
[2025-02-15 15:43] VITALS: BP 142/87; PULSE 96; RESP 16; TEMP 36.3; O2SAT 100
[2025-02-15 18:07] VITALS: BP 125/90; PULSE 103; RESP 27; TEMP 36.5; O2SAT 100
[2025-02-15] MEDS: MORPHINE SULF INJ 10 MG/ML VIAL 4 MG IVP (18:07)
== END 2025-02-15 20:03 | disposition home or self-care (01) ==
PROVIDERS: Emergency Provider Emergency Medicine; PCP Family Medicine
DX: K59.00 Constipation, unspecified (principal)
CPT/HCPCS: 74018; 96360; 96361; 99284; J2270; J7120; A9270